=== PATIENT | female | born 1985 | race Caucasian/White ===

== ENCOUNTER 2021-03-24 12:32 | Emergency (ER) | payer MEDICAID, SELFPAY ==
[2021-03-24 12:43] VITALS: BP 120/82; BP 135/79; PULSE 60; PULSE 94; RESP 20; TEMP 37.1; O2SAT 96; BMI 47.4
[2021-03-24 13:49] VITALS: BP 111/66; RESP 16; O2SAT 96
[2021-03-24] MEDS: Famotidine/PF 20 MG/2 ML VIAL IVPUSH (13:51)
--- NOTE | 2021-03-24 13:53 | ED.ALLEREA ---
HPI - Allergic Reaction General Chief complaint: Allergic Reaction <KELLY Shahid Last Filed: 03/24/21 17:59> Stated complaint: allergic reaction <KELLY Shahid Last Filed: 03/24/21 17:59> Time Seen by Provider: 03/24/21 13:42 <KELLY Shahid Last Filed: 03/24/21 17:59> Source: patient <KELLY Shahid Last Filed: 03/24/21 17:59> Mode of arrival: ambulatory <KELLY Shahid Last Filed: 03/24/21 17:59> Limitations: no limitations <KELLY Shahid Last Filed: 03/24/21 17:59> History of Present Illness HPI narrative: Patient presents to ED for allergic reaction. Patient states 2 days of intermittent tongue/lip swelling, burning sensation lips and itchy sensation on lips. Patient states today she had lip swelling and tongue swelling and sensation of throat closing at urgent care was immediately given EpiPen and was given Benadryl and Solu-Medrol in the EMS truck. Patient states lips have improved and tongue has improved. Since patient has swelling of lips and tongue as per EMS and patient has significantly decreased. <KELLY Shahid Last Filed: 03/24/21 17:59> Related Data Home medications: Previous Rx's Medication Instructions Recorded diphenhydramine HCl [Benadryl] 25 mg PO BEDTIME PRN #30 cap 03/24/21 epinephrine [EpiPen] 0.3 mg IM Q15M PRN #2 ea 03/24/21 famotidine [Pepcid] 20 mg PO BID #20 tab 03/24/21 prednisone 40 mg PO DAILY #10 tab 03/24/21 <KELLY Shahid Last Filed: 03/24/21 17:59> Allergies/adverse reactions: Allergies Allergy/AdvReac Type Severity Reaction Status Date / Time haloperidol [From Haldol] Allergy Unknown UNKNOWN Unverified 07/28/20 17:04 sertraline [Zoloft] Allergy Unknown Verified 08/19/18 00:00 From Zoloft Allergy Unknown UNKNOWN Uncoded 07/28/20 17:04 <KELLY Shahid Last Filed: 03/24/21 17:59> Review of Systems Review of Systems: Yes all other systems are reviewed and are negative <KELLY Shahid - Last Filed: 03/24/21 17:59> Constitutional: Constitutional: Reports as per HPI and Reports no additional constitutional complaints <KELLY Shahid - Last Filed: 03/24/21 17:59> Eyes: Eyes: Reports as per HPI and Reports no additional eye complaints <KELLY Shahid - Last Filed: 03/24/21 17:59> ENT: Reports system reviewed and no additional complaints, except as documented and Reports as per HPI <KELLY Shahid - Last Filed: 03/24/21 17:59> Comments: Lips/tongue swelling burn sensation of lips. Patient is of lips <KELLY Shahid - Last Filed: 03/24/21 17:59> Cardiovascular: Cardiovascular: Reports as per HPI and Reports no additional cardiovascular complaints <KELLY Shahid - Last Filed: 03/24/21 17:59> Respiratory: Respiratory: Reports as per HPI and Reports no additional respiratory complaints <KELLY Shahid - Last Filed: 03/24/21 17:59> Gastrointestinal: Gastrointestinal: Reports as per HPI and Reports no additional gastrointestinal complaints <KELLY Shahid - Last Filed: 03/24/21 17:59> Musculoskeletal: Musculoskeletal: Reports no additional musculoskeletal complaints and Reports as per HPI <KELLY Shahid - Last Filed: 03/24/21 17:59> Neurologic: Reports system reviewed and no additional complaints, except as documented and Reports as per HPI <KELLY Shahid - Last Filed: 03/24/21 17:59> Psychiatric: Psychiatric: Reports no additional psychiatric complaints and Reports as per HPI <KELLY Shahid Last Filed: 03/24/21 17:59> [facility] Social History Social History: Social History Alcohol intake: never Smoking Status: Never smoker Use of substances other than those prescribed or required for medical reasons: No Advance Directives: No Advance Directives Information Provided: Yes Patient : No <KELLY Shahid - Last Filed: 03/24/21 17:59> Physical Exam Vital Signs: Vital Signs: Last Vital Signs Temp 98.9 F 03/24/21 17:03 Pulse 94 03/24/21 19:24 Resp 20 05/14/21 19:24 BP 114/59 L 03/24/21 19:24 Pulse Ox 95 03/24/21 19:24 Body Mass Index 47.4 <KELLY Shahid Last Filed: 03/24/21 17:59> Vital Signs: Last Vital Signs Temp 98.9 F 03/24/21 17:03 Pulse 94 03/24/21 19:24 Resp 20 03/24/21 19:24 BP 114/59 L 03/24/21 19:24 Pulse Ox 95 03/24/21 19:24 Body Mass Index 47.4 <Bola Buenrostro MD - Last Filed: 03/24/21 20:57> Const: General: cooperative, healthy appearing, comfortable, no acute distress, well developed, alert, awake and Physically active <KELLY Shahid - Last Filed: 03/24/21 17:59> Orientation/consciousness: patient oriented x3 <KELLY Shahid - Last Filed: 03/24/21 17:59> HENMT: Head: Yes normal to inspection, Yes No palpable skull fracture present, Yes normocephalic, Yes atraumatic and No abrasion <KELLY Shahid Last Filed: 03/24/21 17:59> Eyes: General: appearance normal, both eyes and all related structures <KELLY Shahid Last Filed: 03/24/21 17:59> Neck: Neck: Yes normal visual inspection, Yes full ROM, Yes no lymphadenopathy, Yes no meningeal signs, Yes trachea midline, Yes supple and No tender <KELLY Shahid - Last Filed: 03/24/21 17:59> Chest: Chest palpation & inspection: normal inspection of the chest and normal palpation of entire chest wall <KELLY Shahid Last Filed: 03/24/21 17:59> Resp: Effort & Inspection: normal respiratory effort and able to speak in complete sentences <KELLY Shahid Last Filed: 03/24/21 17:59> Auscultation: clear to auscultation bilaterally <KELLY Shahid Last Filed: 03/24/21 17:59> Cardio: Jugular venous distension: no JVD <KELLY Shahid Last Filed: 03/24/21 17:59> Heart sounds: S1 normal heart sound present and S2 normal heart sound present <KELLY Shahid Last Filed: 03/24/21 17:59> GI: Inspection: Yes normal to inspection and No abdominal wall ecchymosis <KELLY Shahid - Last Filed: 03/24/21 17:59> Palpation (GI): Soft to palpation, not firm, nontender, no guarding and not rigid <KELLY Shahid - Last Filed: 03/24/21 17:59> : General: No CVA tenderness and Yes no CVA tenderness <KELLY Shahid Last Filed: 03/24/21 17:59> Back/Spine/Pelvis: Back: no CVA tenderness, No CVA tenderness and No back tenderness <KELLY Shahid - Last Filed: 03/24/21 17:59> Skin: General skin exam: no rashes or lesions noted and elasticity normal <KELLY Shahid Last Filed: 03/24/21 17:59> Neuro: General: patient oriented x3, no meningeal signs and CN's II-XI intact bilaterally <KELLY Shahid Last Filed: 03/24/21 17:59> Cranial nerves: Yes CN's II-XII intact bilaterally <KELLY Shahid - Last Filed: 03/24/21 17:59> Extrem: General: Yes normal to inspection and Yes full ROM <KELLY Shahid Last Filed: 03/24/21 17:59> Psych: Appearance: grossly normal, well kempt and not disheveled <KELLY Shahid Last Filed: 03/24/21 17:59> Course Course Course Narrative: Patient presently speaking in full sentences and not using accessory muscles. Uvula is midline and togue no longer swollen. patient is speaking in full sentences. patient received benadryl, solumedrol in EMS. patient received first epipen injection in urgent care <KELLY Shahid Last Filed: 03/24/21 17:59> I have discussed the case and management with the SARABJIT <Bola Buenrostro MD - Last Filed: 03/24/21 20:57> Reevaluation(s) Reevaluation #1: patient presently sleeping in bed and not in any distress. Will evaluate in the ED for four hours. <KELLY Shahid - Last Filed: 03/24/21 17:59> no further swelling to lip or tongue will dc home <Bola Buenrostro MD - Last Filed: 03/24/21 20:57> Time: 20:57 <Bola Buenrostro MD - Last Filed: 03/24/21 20:57> Reevaluation #2: Patient informed staff her felt swollen and itching. patient's lower lip appears to be swelling again. uvula is midline and tongue is not swollen. epi pen and benadryl 23mg ordered <KELLY Shahid - Last Filed: 03/24/21 17:59> Time: 14:15 <KELLY Shahid - Last Filed: 03/24/21 17:59> Reevaluation #3: Patient's lip swelling resolving. uvula is midline and tongue is not swollen. Patient is speaking in full sentences. Sign out to Dr. Buenrostro to reevaluation patient and he will cancel discharge if necessary. <KELLY Shahid - Last Filed: 03/24/21 17:59> MDM - Allergic Reaction MDM Narrative Medical decision making narrative: Allergic reaction <KELLY Shahid - Last Filed: 03/24/21 17:59> Discharge Plan Discharge Clinical Impression: Allergic reaction Qualifiers: Encounter type: initial encounter Qualified Code(s): T78.40XA - Allergy, unspecified, initial encounter <KELLY Shahid - Last Filed: 03/24/21 17:59> Patient Disposition: Home, Self-Care <KELLY Shahid - Last Filed: 03/24/21 17:59> Instructions: General Allergic Reaction (ED) <KELLY Shahid - Last Filed: 03/24/21 17:59> Additional Instructions: Return to the ED immeidately of swelling of oral cavity, shorntess of breath, sensation of throat closing, rash, or any other concerning symptoms., <KELLY Shahid - Last Filed: 03/24/21 17:59> Prescriptions: New epinephrine [EpiPen] 0.3 mg/0.3 mL auto-injector 0.3 mg IM Q15M PRN (Reason: allergic reaction) Qty: 2 RF: 0 prednisone 20 mg tablet 40 mg PO DAILY Qty: 10 RF: 0 famotidine [Pepcid] 20 mg tablet 20 mg PO BID Qty: 20 RF: 0 diphenhydramine HCl [Benadryl] 25 mg capsule 25 mg PO BEDTIME PRN (Reason: allergic reaction) Qty: 30 RF: 0 <KELLY Shahid - Last Filed: 03/24/21 17:59> Referrals: [facility] [Primary Care Provider] - 2 days (Allergic reaction) <KELLY Shahid - Last Filed: 03/24/21 17:59> Stand Alone Forms: Work/School Release <KELLY Shahid - Last Filed: 03/24/21 17:59> Print Language: Bolivian <KELLY Shahid - Last Filed: 03/24/21 17:59>
[2021-03-24 14:06] VITALS: BP 111/66; PULSE 60
[2021-03-24] MEDS: EPINEPHrine 1 MG/ML VIAL 0.3 MG IM (14:06)
[2021-03-24] MEDS: diphenhydrAMINE HCL 50 MG/ML VIAL 25 MG IVPUSH (14:07)
--- NOTE | 2021-03-24 14:12 | PC.NURSE ---
PT REPORTED INCREASED PAIN AND SWELLING IN HER LIP. LOWER LIP DID APPEAR TO BE MORE SWOLLEN THEN PRIOR. KELLY MARTINEZ ORDERED EPINEPHRINE AND BENADRYL iv, ADMINISTERED PER ORDERED WILL REASSESS
[2021-03-24 16:43] VITALS: BP 105/54; O2SAT 96
[2021-03-24 17:03] VITALS: BP 111/52; PULSE 102; RESP 20; TEMP 37.2; O2SAT 96
--- NOTE | 2021-03-24 17:03 | PC.NURSE ---
patients lips look improved, no longer having pain, no longer swollen. report breathing feels normal. vitals stable. will speak with PA regarding ispo.
[2021-03-24 19:24] VITALS: BP 114/59; PULSE 94; RESP 20; O2SAT 95
--- NOTE | 2021-03-24 19:24 | PC.NURSE ---
pt states she has no difficutly swallowing, pt is talking in full sentences. lower lip redness noted and pt states she feels that the swelling has gone down.
== END 2021-03-24 21:08 | disposition home or self-care (01) ==
PROVIDERS: Emergency Provider Emergency Medicine
DX: L23.6 Allergic contact dermatitis due to food in contact with the skin (principal); Z79.899 Other long term (current) drug therapy
CPT/HCPCS: 96372; 96374; 96375; 99284; J0171; J1200

== ENCOUNTER 2021-06-14 10:15 | Outpatient (REF) | payer MEDICAID, SELFPAY ==
[2021-06-15 13:35] LABS: H Pylori Breath Test DETECTED (NOT DETECTED)
== END 2021-06-14 10:16 | disposition home or self-care (01) ==
LOC: HO.LNP 10:15
PROVIDERS: PCP Family Medicine; Referring Provider Family Medicine; Visit Provider Physician Assistant
DX: E66.01 Morbid (severe) obesity due to excess calories (principal); Z68.42 Body mass index [BMI] 45.0-49.9, adult; E11.9 Type 2 diabetes mellitus without complications; F20.9 Schizophrenia, unspecified; F41.9 Anxiety disorder, unspecified; R40.0 Somnolence; J45.909 Unspecified asthma, uncomplicated; Z79.4 Long term (current) use of insulin; Z11.0 Encounter for screening for intestinal infectious diseases
CPT/HCPCS: 83013; 99202; 99211

== ENCOUNTER 2021-06-19 11:43 | Outpatient (REF) | payer MEDICAID, SELFPAY ==
--- NOTE | ~2021-06-19 | XR_ITS ---
EXAMINATION: XR CHEST CLINICAL INFORMATION: Bariatric service evaluation. E66.01 COMPARISON: Chest radiographs 05/17/2016, 07/21/2015 TECHNIQUE: 2 views of the chest were obtained. FINDINGS: The lungs are clear. The vascularity is normal. There is no airspace consolidation or effusion. The heart is normal in size. The hilar and mediastinal contours and visualized bony structures are unremarkable. XR/XR chest 2V IMPRESSION: Unremarkable examination.
--- NOTE | 2021-06-19 11:50 | ECG_ITS ---
Test Reason : MORBID OBESITY Blood Pressure : / mmHG Vent. Rate : 092 BPM Atrial Rate : 092 BPM P-R Int : 134 ms QRS Dur : 080 ms QT Int : 368 ms P-R-T Axes : 064 036 030 degrees QTc Int : 455 ms Normal sinus rhythm Normal ECG When compared with ECG of 19-MAY-2017 03:36, No significant change was found Referred By: Barb Mackey Electronically Signed By:NAT HUA MD
[2021-06-19 12:26] LABS: MANUAL DIFF FLAG NO
[2021-06-19 12:31] LABS: Basophils Percent Auto 0.2 % (0-2); Eosinophils Absolute Auto 0.1 X10*3/uL (0.0-0.4); Eosinophils Percent Auto 1.5 % (0-4); Hematocrit 42.3 % (37-47); Hemoglobin 14.5 g/dl (12.0-16.0); Imm Gran Abs Auto 0.03 X10*3/uL (0.00-0.03); Imm Gran Pct Auto 0.3 % (0.0-0.4); Lymphocytes Absolute Auto 2.7 X10*3/uL (1.2-4.9); Lymphocytes Percent Auto 29.9 % (20-40); Mean Corpuscular HGB Conc 34.3 g/dl (31.0-35.0); Mean Corpuscular Hemoglobin 29.6 pg (27.0-33.0); Mean Corpuscular Volume 86.3 fL (80-98); Mean Platelet Volume 10.4 fL (9.4-12.3); Monocytes Absolute Auto 0.4 X10*3/uL (0.1-1.2); Neutrophils Absolute Auto 5.8 X10*3/uL (2.0-8.3); Neutrophils Percent Auto 64.1 % (45-73); Platelet Count 265 X10*3/uL (160-400); White Blood Count 9.1 X10*3/uL (4.8-10.8)
[2021-06-19 12:39] LABS: Estimated Average Glucose 329 mg/dL; Hemoglobin A1c % 13.1 %
[2021-06-19 13:22] LABS: Alanine Aminotransferase 33 U/L (0-31); Albumin Level 3.9 g/dL (3.5-5.0); Alkaline Phosphatase 138 U/L (39-117); Anion Gap 15 (12-20); Aspartate Amino Transferase 31 U/L (5-31); Bilirubin Total 0.2 mg/dL (0.0-1.0); Blood Urea Nitrogen 12 mg/dL (9-16); C Reactive Protein 2.64 mg/dL (< or = 0.50); Carbon Dioxide 25 mmol/L (22-29); Chloride 102 mmol/L (96-108); Cholesterol 209 mg/dL; Estimated Glomerular Filt Rate > 60; Glucose Random 335 mg/dL (60-115); HDL Cholesterol 44 mg/dL; Iron 54 mcg/dL (30-160); LDL Cholesterol Calculated 138 mg/dl; Percent Iron Saturation 18 % (15-50); Sodium 138 mmol/L (135-145); Total Iron Binding Capacity 302 mcg/dL (228-428); Total Protein 6.9 g/dL (6.5-8.0); Triglycerides 136 mg/dL; Unsaturated Iron Binding 248 ug/dL
[2021-06-19 13:44] LABS: Ferritin 164 ng/mL (10-122); TSH reflex Free T4 2.81 uIU/mL (0.32-4.0); Vitamin D 25-OH Total 19.9 ng/mL (>30)
[2021-06-19 14:04] LABS: Folate 11.8 ng/mL (> or = 4.0); Vitamin B12 668 pg/mL (200-900)
[2021-06-20 18:31] LABS: Insulin Level Total 14.8 uIU/mL
[2021-06-21 16:37] LABS: Calcium (PTHI) 9.1 mg/dL (8.6-10.2); PTHI 77 pg/mL (14-64)
[2021-06-21 22:26] LABS: Zinc 66 mcg/dL (60-130)
[2021-06-23 13:01] LABS: Vitamin B1 7 nmol/L (8-30)
[2021-06-25 02:22] LABS: Vitamin A 28 mcg/dL (38-98)
== END 2021-06-19 11:44 | disposition home or self-care (01) ==
LOC: HO.XRAY 11:43
PROVIDERS: PCP Family Medicine; Visit Provider Physician Assistant
DX: E66.01 Morbid (severe) obesity due to excess calories (principal)
CPT/HCPCS: 36415; 71046; 80053; 80061; 82306; 82607; 82728; 82746; 83036; 83525; 83540; 83970; 84425; 84443; 84590; 84630; 85025; 86140; 93005

== ENCOUNTER → 2021-06-27 11:26 | Outpatient (BNVA) | payer MEDICAID, SELFPAY | PROVIDERS: PCP Family Medicine; Visit Provider Surgery ==

== ENCOUNTER → 2021-07-04 11:16 | Outpatient (BNVA) | payer MEDICAID, SELFPAY | PROVIDERS: PCP Family Medicine; Referring Provider Family Medicine; Visit Provider Physician Assistant ==

== ENCOUNTER → 2021-07-05 15:57 | Outpatient (BNVA) | payer MEDICAID, SELFPAY | PROVIDERS: PCP Family Medicine; Referring Provider Family Medicine; Visit Provider Dietitian, Registered | DX: E66.01 Morbid (severe) obesity due to excess calories (principal); Z68.42 Body mass index [BMI] 45.0-49.9, adult | CPT/HCPCS: 97803 ==

== ENCOUNTER 2021-07-13 08:49 | Outpatient (REF) | payer MEDICAID, SELFPAY ==
--- NOTE | ~2021-07-13 | US_ITS ---
EXAMINATION: US COMPLETE ABDOMEN WITH LIVER ELASTOGRAPHY CLINICAL INFORMATION: Obesity COMPARISON: Previous CT of the abdomen and pelvis most recent November 2019 and abdominal ultrasound May 2009 TECHNIQUE: Real-time imaging of the abdominal viscera. Noninvasive ultrasound liver fibrosis assessment is performed using Lizzeth ElastPQ point quantification shear wave elastography (pSWE) with a C5-2 MHz transducer. Multiple elastography samples are obtained. FINDINGS: PANCREAS: Not well visualized due to bowel gas. ABDOMINAL AORTA: Not well visualized due to bowel gas INFERIOR VENA CAVA: Not well visualized bowel gas LIVER: Liver echotexture is increased. The liver demonstrates normal size and contour. No focal lesion or intrahepatic biliary duct dilatation. The right lobe measures 15 cm in length. The left lobe measures 14 cm in length. Portal flow is normal/hepatopedal Shear wave liver elastography median stiffness is 1.5 m/s (reference: normal median stiffness is 1.3 m/s or less). IQR/median stiffness to assess sampling precision is 0.13 (reference: good quality data set is IQR/median stiffness of 0.15 or less). GALLBLADDER: Normal. The gallbladder is physiologically distended without evidence of stones, sludge, polyps, wall thickening or pericholecystic fluid. COMMON BILE DUCT: Normal in caliber measuring 0.5 cm in diameter. RIGHT KIDNEY: Normal. No hydronephrosis. No renal calculi or focal parenchymal lesions. The kidney measures 10.7 cm in maximum dimension. LEFT KIDNEY: Normal. No hydronephrosis. No renal calculi or focal parenchymal lesions. The kidney measures 10.9 cm in maximum dimension. SPLEEN: Normal. The spleen measures 12.4 cm in maximum dimension. FREE FLUID: None. US/US abdomen comp w elastography IMPRESSION: 1. Impression: Echogenic liver probably representing fatty infiltration. Nonvisualization of the pancreas, aorta and IVC. 2. Liver elastography: Adequate liver sampling. In the absence of other known clinical signs, rules out compensated advanced chronic liver disease. REFERENCE: Society of Radiologists in Ultrasound Liver Stiffness Thresholds (2019): LIVER STIFFNESS THRESHOLDS: *Liver Stiffness equal or less than 1.3 m/s: High probability of being normal. *Liver Stiffness less than 1.7 m/s: In the absence of other known clinical signs, rules out compensated advanced chronic liver disease. *Liver Stiffness 1.7-2.1 m/s: Suggestive of compensated advanced chronic liver disease but need further test for confirmation. *Liver Stiffness over 2.1 m/s: Rules in compensated advanced chronic liver disease. *Liver Stiffness over 2.4 m/s: Suggestive of clinically significant portal hypertension. QUALITY OF DATA SET: *IQR/Median value equal or less than 0.15 implies a quality data set. *IQR/Median value over 0.15 implies a poor quality data set. SIGNIFICANT CHANGE FROM PRIOR EXAM: Significant change if liver stiffness measurement is 10% or greater from prior exam. OTHER CONSIDERATIONS: The stage of liver fibrosis may be overestimated in the setting of acute hepatitis, liver inflammation, elevated liver function tests, hepatic vascular congestion, obstructive cholestasis, non-fasting state, and infiltrative diseases such as amyloidosis and lymphoma. In some patients with NAFLD, the liver stiffness thresholds for compensated advanced chronic liver disease may be lower. In causes other than viral hepatitis and NAFLD, liver stiffness thresholds are not well established.
--- NOTE | ~2021-07-13 | FL_ITS ---
EXAMINATION: XR GI SERIES CLINICAL INFORMATION: Morbid obesity. COMPARISON: None TECHNIQUE: Air-contrast upper GI examination. FINDINGS: There is normal apposition of the focal cords while saying E. There is normal elevation of the soft palate while saying candy. Patient swallowed thin and thick barium without difficulty. There is no evidence of nasopharyngeal reflux or tracheal aspiration. There is normal esophageal motility and distensibility without mucosal abnormality identified. There was spontaneous gastroesophageal reflux to the level of the cooper which cleared slowly. The stomach demonstrates normal distensibility without evidence of abnormal mass or ulceration. There is no delay in gastric emptying. The duodenal bulb and sweep appeared unremarkable. FLUOROSCOPY TIME: 1.5 minutes. DOSE AREA PRODUCT: 21.930 Gy-cm2 (ayon-centimeter squared). FL/FL upper GI series IMPRESSION: Spontaneous reflux to the level of the cooper which cleared slowly. No mucosal abnormality appreciated.
== END 2021-07-13 08:50 | disposition home or self-care (01) ==
LOC: HO.SL 08:49
PROVIDERS: PCP Family Medicine; Visit Provider Surgery
DX: Z01.818 Encounter for other preprocedural examination (principal); E66.01 Morbid (severe) obesity due to excess calories; K21.9 Gastro-esophageal reflux disease without esophagitis; F20.9 Schizophrenia, unspecified; G47.10 Hypersomnia, unspecified; G47.19 Other hypersomnia
CPT/HCPCS: 74240; 76705; 76981; 95806

== ENCOUNTER → 2021-07-21 07:07 | Outpatient (BNVA) | payer MEDICAID, SELFPAY | PROVIDERS: PCP Family Medicine; Visit Provider Surgery ==

== ENCOUNTER 2021-07-24 11:06 | Outpatient (REF) | payer MEDICAID, SELFPAY ==
[2021-07-26 13:08] LABS: H Pylori Breath Test Positive (Negative)
== END 2021-07-24 11:07 | disposition home or self-care (01) ==
LOC: HO.LNP 11:06
PROVIDERS: Physician Assistant Surgical; PCP Family Medicine; Referring Provider Family Medicine; Visit Provider Physician Assistant
DX: Z01.818 Encounter for other preprocedural examination (principal)
CPT/HCPCS: 83013; 99211

== ENCOUNTER → 2021-08-02 12:57 | Outpatient (BNVA) | payer MEDICAID, SELFPAY | PROVIDERS: PCP Family Medicine; Referring Provider Family Medicine; Visit Provider Dietitian, Registered | DX: E66.01 Morbid (severe) obesity due to excess calories (principal); Z68.42 Body mass index [BMI] 45.0-49.9, adult | CPT/HCPCS: 97803 ==

== ENCOUNTER → 2021-08-16 08:11 | Outpatient (BNVA) | payer MEDICAID, SELFPAY | PROVIDERS: PCP Family Medicine; Visit Provider Surgery ==

== ENCOUNTER → 2021-09-25 07:54 | Outpatient (BNVA) | payer MEDICAID, SELFPAY | PROVIDERS: PCP Family Medicine; Visit Provider Surgery ==

== ENCOUNTER → 2021-10-26 12:51 | Outpatient (BNVA) | payer MEDICAID, SELFPAY | PROVIDERS: PCP Family Medicine; Visit Provider Internal Medicine Pulmonary Disease | DX: G47.33 Obstructive sleep apnea (adult) (pediatric) (principal); Z99.89 Dependence on other enabling machines and devices; E66.9 Obesity, unspecified; Z68.42 Body mass index [BMI] 45.0-49.9, adult | CPT/HCPCS: 99202 ==

== ENCOUNTER → 2022-03-16 11:32 | Outpatient (BNVA) | payer MEDICAID, SELFPAY | PROVIDERS: PCP Family Medicine; Referring Provider Family Medicine; Visit Provider Surgery | DX: Z13.89 Encounter for screening for other disorder (principal) ==

== ENCOUNTER → 2022-03-23 13:04 | Outpatient (BNVA) | payer MEDICAID, SELFPAY | PROVIDERS: PCP Family Medicine; Referring Provider Family Medicine; Visit Provider Physician Assistant Surgical | DX: Z13.89 Encounter for screening for other disorder (principal) ==

== ENCOUNTER → 2022-04-04 12:33 | Outpatient (BNVA) | payer MEDICAID, SELFPAY | PROVIDERS: PCP Family Medicine; Visit Provider Physician Assistant Surgical | DX: E66.01 Morbid (severe) obesity due to excess calories (principal); Z68.42 Body mass index [BMI] 45.0-49.9, adult | CPT/HCPCS: 99212 ==

== ENCOUNTER 2022-04-10 09:41 | Outpatient (REF) | payer MEDICAID, SELFPAY ==
[2022-04-11 14:11] LABS: H Pylori Breath Test Positive (Negative)
== END 2022-04-10 09:42 | disposition home or self-care (01) ==
LOC: HO.LNP 09:41
PROVIDERS: PCP Family Medicine; Referring Provider Family Medicine; Visit Provider Physician Assistant Surgical
DX: Z01.818 Encounter for other preprocedural examination (principal); E66.01 Morbid (severe) obesity due to excess calories
CPT/HCPCS: 83013; 99211

== ENCOUNTER → 2022-04-18 13:26 | Outpatient (BNVA) | payer OTHER, SELFPAY | PROVIDERS: PCP Family Medicine; Visit Provider Counselor Mental Health | DX: F31.60 Bipolar disorder, current episode mixed, unspecified (principal); E66.01 Morbid (severe) obesity due to excess calories | CPT/HCPCS: 90791 ==

== ENCOUNTER → 2022-04-24 10:30 | Outpatient (BNVA) | payer MEDICAID, SELFPAY | PROVIDERS: PCP Family Medicine; Visit Provider Dietitian, Registered | DX: E66.01 Morbid (severe) obesity due to excess calories (principal) | CPT/HCPCS: 97802 ==

== ENCOUNTER → 2022-05-09 13:00 | Outpatient (BNVA) | payer OTHER, SELFPAY | PROVIDERS: PCP Family Medicine; Visit Provider Counselor Mental Health | DX: F31.60 Bipolar disorder, current episode mixed, unspecified (principal); E66.01 Morbid (severe) obesity due to excess calories | CPT/HCPCS: 90832 ==

== ENCOUNTER 2023-08-01 12:03 | Outpatient (REF) | payer MEDICAID, SELFPAY ==
--- NOTE | ~2023-08-01 | XR_ITS ---
EXAMINATION: XR FOOT, RIGHT CLINICAL INFORMATION: Right foot pain. COMPARISON: None available. TECHNIQUE: AP, lateral, and oblique views of the right foot. FINDINGS: No acute fracture or dislocation. No joint space narrowing or marginal osteophytes. No osseous erosion. Plantar and dorsal calcaneal spurs. XR/XR foot RT min 3V IMPRESSION: Plantar and dorsal calcaneal spurs.
[2023-08-01 13:36] LABS: Estimated Average Glucose 303 mg/dL; Hemoglobin A1c % 12.2 % (<6.0)
[2023-08-01 13:37] LABS: Cholesterol 226 mg/dL (<200); HDL Cholesterol 46 mg/dL (>40); LDL Cholesterol Calculated 149 mg/dL (<100); Triglycerides 158 mg/dL (<150)
[2023-08-01 14:10] LABS: Folate 12.3 ng/mL (> or = 4.0); Vitamin B12 861 pg/mL (200-900)
[2023-08-01 14:26] LABS: Alanine Aminotransferase 29 U/L (0-31); Albumin Level 3.7 g/dL (3.5-5.0); Alkaline Phosphatase 124 U/L (39-117); Anion Gap 14 (12-20); Aspartate Amino Transferase 20 U/L (5-31); Bilirubin Total 0.2 mg/dL (0.0-1.0); Blood Urea Nitrogen 13 mg/dL (9-16); Calcium 9.3 mg/dL (8.4-10.2); Carbon Dioxide 23 mmol/L (22-29); Chloride 107 mmol/L (96-108); Estimated Glomerular Filt Rate > 60; Glucose Random 238 mg/dL (60-115); Potassium 3.8 mmol/L (3.3-5.1); Sodium 140 mmol/L (135-145); Total Protein 7.6 g/dL (6.5-8.0)
[2023-08-01 14:40] LABS: TSH reflex Free T4 1.47 uIU/mL (0.32-4.0)
[2023-08-01 15:49] LABS: Reflex LDLD? No
[2023-08-02 08:09] LABS: Syphilis Screen Nonreactive (Nonreactive)
[2023-08-02 08:36] LABS: HBsAGNum1 0.34 S/CO (0.00-0.99); HIV AB/AG Nonreactive (Nonreactive); HIV Num 1 0.05 S/CO (0.00-0.99); Hepatitis B Surface Antigen Negative (Negative); ~HepC Num1 0.18 S/CO (0.00-0.79); ~Hepatitis C Antibody Nonreactive (Nonreactive)
[2023-08-03 14:44] LABS: C. trachomatis RNA TMA NOT DETECTED (NOT DETECTED); N. gonorrhoeae RNA TMA NOT DETECTED (NOT DETECTED)
== END 2023-08-01 12:04 | disposition home or self-care (01) ==
LOC: HO.HHCL 12:03
PROVIDERS: Visit Provider Family Medicine
DX: N89.8 Other specified noninflammatory disorders of vagina (principal); E11.65 Type 2 diabetes mellitus with hyperglycemia; Z79.4 Long term (current) use of insulin
CPT/HCPCS: 36415; 73630; 80053; 80061; 82607; 82746; 83036; 84443; 86780; 86803; 87340; 87389; 87491; 87591

== ENCOUNTER 2023-08-10 11:18 | Emergency (ER) | payer MEDICAID, SELFPAY ==
--- NOTE | ~2023-08-10 | CT_ITS ---
EXAMINATION: CT ABDOMEN AND PELVIS WITH CONTRAST CLINICAL INFORMATION: Left lower quadrant pain COMPARISON: Previous CT of the abdomen and pelvis November 2019 and abdominal ultrasound July 2021 TECHNIQUE: Multidetector volumetric images were obtained from the superior aspect of the liver through the pubic symphysis following administration 85 mL of Omnipaque 350 intravenous contrast. Sagittal and coronal reformatted images were obtained on the technologist's workstation. Oral contrast: Yes This CT examination was performed using dose optimization techniques as appropriate, variously including the following: *Automated exposure control *Adjustment of mA and/or kV according to patient size (this includes techniques or standardized protocols for targeted exams where dose is matched to indication/reason for exam; i.e. extremities or head) *Use of iterative reconstruction technique DLP: 974 mGy-cm FINDINGS: LUNG BASES: The visualized lung bases are unremarkable. LIVER, GALLBLADDER, AND BILIARY TREE: Widely enlarged fatty liver. No focal hepatic lesion or biliary ductal dilatation is present. The gallbladder is unremarkable with no evidence of radiopaque gallstones, gallbladder wall thickening, or obvious pericholecystic inflammatory changes. PANCREAS: Unremarkable. SPLEEN: Unremarkable. ADRENAL GLANDS: Unremarkable. KIDNEYS AND URETERS: The kidneys are normal in size, shape, and attenuation. No hydronephrosis, hydroureter, or calculi seen. No perinephric stranding. BLADDER: Unremarkable. GASTROINTESTINAL TRACT: The small and large bowel are unremarkable. The appendix is unremarkable. ABDOMINAL WALL: No significant hernia is appreciated. LYMPH NODES: Normal. VASCULAR: Unremarkable. PELVIC VISCERA: Unremarkable. OSSEOUS STRUCTURES: Unremarkable. CT/CT abdomen pelvis w IV con IMPRESSION: Enlarged fatty liver. Otherwise unremarkable exam. Fleischner guidelines were followed.
[2023-08-10 11:20] VITALS: BP 136/88; PULSE 103; RESP 18; TEMP 35.8; O2SAT 98; BMI 47.5
--- NOTE | 2023-08-10 11:21 | ED.GENADULT ---
HPI - General Adult General Chief complaint: Abdominal Pain Stated complaint: vomiting abd pain Time Seen by Provider: 08/10/23 11:36 Source: patient Mode of arrival: ambulatory Limitations: no limitations History of Present Illness HPI narrative: 37 year old female with pmhx significant for bipolar 1 disorder, schizophrenia, anxiety, depression, asthma, morbid obesity, YING on CPAP, GERD, T2DM non med compliant, presenting to the ED today with RLQ abdominal pain x1 week, worsening over the last 3 days. Admits to pain in the right lower quadrant with radiation to the left upper quadrant. Additionally endorses nausea and vomiting beginning at 0300 this morning. Denies hematemesis. Reports a depressive episode over the last week after having an argument with her mother and has not been taking any of her diabetic medications. Denies feeling depressed right now. Has appointment with her therapist. Denies SI/HI. No oDenies fever, chills, headache, dizziness, sweats. Denies history of peptic ulcers disease. No history of abdominal surgeries. Related Data Home Medications Medication Instructions Recorded Confirmed insulin aspart U-100 100 unit/mL 20 unit subcut BID 05/10/21 04/04/22 (3 mL) subcutaneous pen (Novolog FlexPen U-100 Insulin aspart) insulin glargine 100 unit/mL 50 unit subcut QPM 05/10/21 04/04/22 subcutaneous cartridge albuterol sulfate 90 mcg/actuation 2 puff inhalation Q6H PRN 06/14/21 04/04/22 aerosol inhaler bupropion HCl 150 mg 24 hr tablet, 150 mg PO QAM 06/14/21 04/04/22 extended release (Wellbutrin XL) glipizide 2.5 mg-metformin 250 mg 1 tab PO DAILY 06/14/21 04/04/22 tablet metformin 1,000 mg tablet 1,000 mg PO DAILY 06/14/21 04/04/22 quetiapine 200 mg tablet (Seroquel) 200 mg PO BEDTIME 06/14/21 04/04/22 quetiapine 50 mg tablet (Seroquel) 50 mg PO DAILY 06/14/21 04/04/22 Previous Rx's Medication Instructions Recorded epinephrine 0.3 mg/0.3 mL 0.3 mg (0.3 mL) IM Q15M PRN 03/24/21 injection, auto-injector (EpiPen) allergic reaction #2 ea cholecalciferol (vitamin D3) 25 25 mcg PO DAILY #30 caps 07/07/21 mcg (1,000 unit) capsule bismuth subsalicylate 262 mg 2 tab PO QID 14 days #112 tabs 04/13/22 chewable tablet metronidazole 500 mg tablet 500 mg PO TID 14 days #42 tabs 04/13/22 omeprazole 20 mg capsule,delayed 20 mg PO BID 14 days #28 caps 04/13/22 release tetracycline 500 mg capsule 500 mg PO QID 14 days #56 caps 04/13/22 ondansetron 4 mg disintegrating 4 mg PO DAILY PRN nausea and 08/10/23 tablet vomiting 5 days #10 tabs Allergies Allergy/AdvReac Type Severity Reaction Status Date / Time haloperidol [From Haldol] Allergy Unknown UNKNOWN Verified 10/26/21 13:07 sertraline [Zoloft] Allergy Unknown UNKNOWN Verified 10/26/21 13:07 From Zoloft Allergy Unknown UNKNOWN Uncoded 07/21/21 08:03 Review of Systems Review of Systems: Constitutional: No fever, chills, fatigue, night sweats, weight changes ENT/Mouth: No ear pain, hearing loss, nasal congestion, sinus pain, rhinorrhea, sore throat Eyes: No eye pain, swelling, redness, vision changes, discharge Cardio: No chest pain, palpitations, COLINDRES, orthopnea, peripheral edema Pulm: No SOB, cough, sputum, wheezing, dyspnea, hemoptysis GI: + nausea, + vomiting, No hematemesis, + abdominal pain, No diarrhea, constipation, hematochezia, melena : No irregular bleeding, dysuria, frequency, urgency, hesitancy, hematuria, flank pain, urinary flow changes MSK: No back pain, neck pain, joint pain, myalgias Skin: No lesions, rashes Neuro: No weakness, numbness, paresthesias, LOC, dizziness, headache All other systems reviewed and are negative. [facility] Past Medical History Attestation statement: The following information was validated with the patient. Source: old records reviewed and nursing notes reviewed Medical History (Updated 08/10/23 @ 14:28 by KELLY Ward) Bipolar 1 disorder Depression GERD (gastroesophageal reflux disease) Sleep apnea History of anxiety History of asthma Hx of type 2 diabetes mellitus Hx of major depression Surgical History (Updated 06/14/21 @ 10:33 by Guerita Norris CMA) No history of previous surgery Family History Family History (Updated 05/10/21 @ 11:00 by Kavitha Ibarra) Mother Asthma No kidney function Father Diabetes Brother Tumor Brother Asthma Brother No problems noted. Sister No problems noted. Social History Social History (Updated 05/10/21 @ 11:00 by Kavitha Ibarra) Alcohol intake: never Patient Tobacco Use Status: Never used Tobacco Advance Directives: No Physical Exam ED Vital Signs: Vital Signs - 24 hr 08/10/23 11:20 08/10/23 13:19 08/10/23 15:37 Temperature 96.4 F L 97.8 F 97.5 F Pulse Rate 103 H 91 92 Respiratory Rate 18 18 18 Blood Pressure 136/88 129/80 126/85 Pulse Oximetry 98 98 99 Oxygen Delivery Method Room Air BMI result Body Mass Index 47.5 Vital signs stable. Const General: cooperative, comfortable, no acute distress, alert and awake Nutritional Appearance: obese Orientation/consciousness: patient oriented x3 Limitations: no limitations HENMT Head: Yes normal to inspection Ears: hearing grossly normal bilaterally General nose exam: Normal external nose present Eyes General: appearance normal, both eyes and all related structures Neck Neck: Yes normal visual inspection and Yes no lymphadenopathy Chest Chest palpation & inspection: normal inspection of the chest Resp Effort & Inspection: normal respiratory effort Auscultation: clear to auscultation bilaterally Cardio Rate: regular rate Rhythm: regular rhythm Heart sounds: S1 normal heart sound present and S2 normal heart sound present Peripheral pulses: Peripheral pulses 2+ throughout GI Other: + RLQ and RUQ tender to palpation without rebound tenderness or guarding. Negative thomas sign. Negative rovsing sign and mcburney point tenderness. Inspection: Yes normal to inspection, No abdominal wall ecchymosis, No distended, Yes Abdominal panniculus present, Yes obesity and No visible peristalsis Palpation (GI): Soft to palpation, No hepatosplenomegaly present, no hernias and no masses General: Yes no CVA tenderness Back/Spine/Pelvis Back: no CVA tenderness Skin General skin exam: no rashes or lesions noted Neuro General: patient oriented x3, gait normal and moves all extremities Cranial nerves: Yes CN's II-XII intact bilaterally Extrem General: Yes normal to inspection and Yes full ROM Course Course Course Narrative: RME- 37 year old female presents for evaluation of abdominal pain and vomiting. Symptoms started at 3am this morning. Plan for labs, UA Reevaluation(s) Reevaluation #1: 1230-- patient reports improvement in nausea after receiving zofran. Awaiting labs. 1250-- CBC without leukocytosis or anemia. Chemistry without acute electrolyte abnormality requiring intervention. Mildly elevated liver enzymes, chronic when compared to previous labs. Lipase WNL. Urine negative for nitrates and leukocyte esterase, trace bacteria and large amount of squamous epithelial cells > likely contamination. No urinary tract infection. Urine negative. POC 197. > patient with normal renal function > will order CT abdomen pelvis with contrast 1320-- patient with initial tympanic temperature of 96.4?F > repeat temp is 97.8?. No concern for infectious process. 1400-- CT abd/pelvis showing enlarged fatty liver, which correlates with increase in LFTs. Otherwise WNL. Will PO trial. 1430-- Patient informed of lab and imaging results. I told patient she will need to follow up with her PCP regarding enlarged fatty liver findings and elevated liver enzymes. Patient's symptoms are most consistent with gastroenteritis. PO trial successful- able to eat/ drink without issue. Will send patient home with zofran prescription for nausea. Educated on return precautions. Answered all questions. Patient stable for discharge. Medications Administered Discontinued Medications Generic Name Dose Route Start Last Admin Trade Name Freq PRN Reason Stop Dose Admin Sodium Chloride 1,000 mls @ 999 mls/hr 08/10/23 12:30 08/10/23 13:48 Ns IV 08/10/23 13:30 Infused .Q1H1M SASHA Infusion Iohexol 100 ml 08/10/23 13:48 08/10/23 13:49 Iohexol 350 Mg/Ml 100 Ml Infus..Btl IV 08/10/23 13:49 85 ml ONCE ONE Administration Ondansetron HCl 4 mg 08/10/23 11:48 08/10/23 12:06 Ondansetron Hcl 4 Mg/2 Ml Vial IVPUSH 08/10/23 11:49 4 mg ONCE ONE Administration Medical Decision Making Medical Decision Making [facility] Narrative: 37 year old female with pmhx significant for bipolar 1 disorder, schizophrenia, anxiety, depression, asthma, sleep apnea, morbid obesity, YING on CPAP, GERD, type 2 diabetic med non compliant, presenting to the ED today with RLQ abdominal pain x1 week, worsening over the last 3 days. VSS. Patient afebrile and normotensive. Nontoxic appearing, in NAD. PE notable for RLQ and RUQ tender to palpation without rebound tenderness or guarding. Negative thomas sign. Negative rovsing sign and mcburney point tenderness. Clinical concern for viral syndrome vs gastroenteritis vs PUD vs IUP vs ectopic vs appendicitis vs cholecystitis. Low suspicion for DKA vs gastroparesis vs pancreatitis. Unlikely UTI, nephrolithiasis, pyelonephritis. Unlikely ischemic bowel, SBO, diverticulosis/itis, or acute abdomen. Differential Diagnosis Differential Diagnoses: The differential diagnosis associated with the presentation includes As above. Admission/Observation Consideration of admission/observation: Escalation of care including admission/observation considered Lab Data MDM Lab Attestation statement: I reviewed the patient's lab results. As above. 08/10/23 12:02 08/10/23 12:02 Labs: Lab Results 08/10/23 08/10/23 08/10/23 Range/Units 12:02 12:10 12:43 WBC 9.7 (4.8-10.8) X10*3/uL RBC 5.00 (4.20-5.50) X10*6/uL Hgb 15.0 (12.0-16.0) g/dl Hct 43.9 (37.0-47.0) % MCV 87.8 (80.0-98.0) fL MCH 30.0 (27.0-33.0) pg MCHC 34.2 (31.0-35.0) g/dl RDW 13.2 (11.0-16.0) % Plt Count 278 (160-400) X10*3/uL MPV 10.5 (9.4-12.3) fL Immature Gran % (Auto) 0.3 (0.0-0.4) % Neut % (Auto) 60.4 (45-73) % Lymph % (Auto) 32.7 (20-40) % Wake % (Auto) 3.6 (2-11) % Eos % (Auto) 2.6 (0-4) % Baso % (Auto) 0.4 (0-2) % Lymph # (Auto) 3.2 (1.2-4.9) X10*3/uL Wake # (Auto) 0.4 (0.1-1.2) X10*3/uL Eos # (Auto) 0.3 (0.0-0.4) X10*3/uL Baso # (Auto) 0.0 (0.0-0.2) X10*3/uL Abs Immat Gran (auto) 0.03 (0.00-0.03) X10*3/uL Absolute Neuts (auto) 5.8 (2.0-8.3) x10*3/uL Absolute Nucleated RBC 0.000 (0.0-0.012) X10*3/uL Nucleated RBC % (auto) 0.0 (0.0-0.2) /100WBC Sodium 137 (135-145) mmol/L Potassium 4.6 D (3.3-5.1) mmol/L Chloride 104 (96-108) mmol/L Carbon Dioxide 22 (22-29) mmol/L Anion Gap 16 (12-20) BUN 13 (9-16) mg/dL Creatinine 0.66 (0.5-1.4) mg/dL Estim Creat Clear Calc 136.9 Estimated GFR > 60 POC Glucose (60-115) mg/dL Random Glucose 245 H (60-115) mg/dL Calcium 9.3 (8.4-10.2) mg/dL Total Bilirubin 0.4 (0.0-1.0) mg/dL AST 47 H (5-31) U/L ALT 44 H (0-31) U/L Alkaline Phosphatase 127 H (39-117) U/L Total Protein 8.1 H (6.5-8.0) g/dL Albumin 3.7 (3.5-5.0) g/dL Lipase 12 (8-78) U/L Urine Color Yellow Urine Appearance Hazy Urine pH 7.5 (5.0-9.0) Ur Specific [place] 1.015 (1.005-1.025) Urine Protein 30 (1+) H (Neg-Trace) mg/dL Urine Glucose (UA) 100 H (Negative) mg/dL Urine Ketones Negative (Negative) mg/dL Urine Blood Trace (Negative) Urine Nitrite Negative (Negative) Ur Leukocyte Esterase Negative (Negative) Urine RBC 0-2 (0-2) /HPF Urine WBC 0-5 (0-5) /HPF Ur Squamous Epith Cells 11-20 (0-2) /HPF Urine Bacteria Trace (None Seen) Hyaline Casts 0-2 (0-2) /LPF Urine Test NEGATIVE (NEGATIVE) COVID-19 (CRISTINA) Negative (Negative) COVID-19 Clin Com See Note Influenza Type A (ANNEMARIE) (Negative) Influenza Type B (ANNEMARIE) (Negative) Influenza A & B Note 08/10/23 08/10/23 Range/Units 12:44 13:56 WBC (4.8-10.8) X10*3/uL RBC (4.20-5.50) X10*6/uL Hgb (12.0-16.0) g/dl Hct (37.0-47.0) % MCV (80.0-98.0) fL MCH (27.0-33.0) pg MCHC (31.0-35.0) g/dl RDW (11.0-16.0) % Plt Count (160-400) X10*3/uL MPV (9.4-12.3) fL Immature Gran % (Auto) (0.0-0.4) % Neut % (Auto) (45-73) % Lymph % (Auto) (20-40) % Wake % (Auto) (2-11) % Eos % (Auto) (0-4) % Baso % (Auto) (0-2) % Lymph # (Auto) (1.2-4.9) X10*3/uL Wake # (Auto) (0.1-1.2) X10*3/uL Eos # (Auto) (0.0-0.4) X10*3/uL Baso # (Auto) (0.0-0.2) X10*3/uL Abs Immat Gran (auto) (0.00-0.03) X10*3/uL Absolute Neuts (auto) (2.0-8.3) x10*3/uL Absolute Nucleated RBC (0.0-0.012) X10*3/uL Nucleated RBC % (auto) (0.0-0.2) /100WBC Sodium (135-145) mmol/L Potassium (3.3-5.1) mmol/L Chloride (96-108) mmol/L Carbon Dioxide (22-29) mmol/L Anion Gap (12-20) BUN (9-16) mg/dL Creatinine (0.5-1.4) mg/dL Estim Creat Clear Calc Estimated GFR POC Glucose 197 H (60-115) mg/dL Random Glucose (60-115) mg/dL Calcium (8.4-10.2) mg/dL Total Bilirubin (0.0-1.0) mg/dL AST (5-31) U/L ALT (0-31) U/L Alkaline Phosphatase (39-117) U/L Total Protein (6.5-8.0) g/dL Albumin (3.5-5.0) g/dL Lipase (8-78) U/L Urine Color Urine Appearance Urine pH (5.0-9.0) Ur Specific [place] (1.005-1.025) Urine Protein (Neg-Trace) mg/dL Urine Glucose (UA) (Negative) mg/dL Urine Ketones (Negative) mg/dL Urine Blood (Negative) Urine Nitrite (Negative) Ur Leukocyte Esterase (Negative) Urine RBC (0-2) /HPF Urine WBC (0-5) /HPF Ur Squamous Epith Cells (0-2) /HPF Urine Bacteria (None Seen) Hyaline Casts (0-2) /LPF Urine Test (NEGATIVE) COVID-19 (CRISTINA) (Negative) COVID-19 Clin Com Influenza Type A (ANNEMARIE) Negative (Negative) Influenza Type B (ANNEMARIE) Negative (Negative) Influenza A & B Note See Note Independent Interpretation I performed an independent interpretation of an: CT Scan Interpretation: CT abd/pelvis with enlarged liver, agree with radiologist's results. Radiology Impression Discussion of test interpretation with radiology: I have reviewed the radiologist's reading. Radiologist Impression: CT abdomen pelvis w IV con IMPRESSION: Enlarged fatty liver. Otherwise unremarkable exam. External Record Review External record reviewed: Inpatient record Prescription Management I considered prescription management with: Other (Antiemetic) Chronic Conditions Patient?s care impacted by: Diabetes Social Determinants Patient?s care significantly limited by Social Determinants of Health including: Other Social Determinant of Health Critical Care Time Critical Care Time Critical Care Time: No Discharge Plan Discharge Clinical Impression: Gastroenteritis, Fatty liver disease, nonalcoholic Patient Disposition: Home, Self-Care Instructions: Liver Disease Diet (DC), Gastroenteritis (ED), Non-Alcoholic Fatty Liver Disease (ED) Additional Instructions: Your lab workup today was reassuring.? Your urine test was negative for infection and .? You tested negative for both COVID and influenza. The CT of your abdomen and pelvis did not show acute appendicitis or cholecystitis, however it showed an enlarged fatty liver which coincides with your elevated liver enzymes. The treatment for this is to stop drinking alcohol and adopt a liver friendly diet. Resources regarding this have been provided to you. Please follow-up with your primary care provider so that they can continue to follow this. Your symptoms are most consistent with a viral stomach bug, also known as gastroenteritis.? The treatment for this is supportive care. Symptoms usually resolve on their own in 48-72 hours.? The recommendation is rest and lots of oral hydration.? Stick to a bland diet like soup and toast while you are not feeling well.? Zofran is an anti-nausea medication. This has been sent to your pharmacy for you to take as needed for nausea.? You can also try over the counter Pepto Bismol or Imodium as needed for upset stomach and diarrhea.? Additionally continue taking all of your home medications as prescribed and do not miss any doses. If you develop new or worsening symptoms call 911 or come back to the ER for further evaluation. Prescriptions: New ondansetron 4 mg tablet,disintegrating 4 mg PO DAILY PRN (Reason: nausea and vomiting) 5 Days Qty: 10 0RF No Action cholecalciferol (vitamin D3) 25 mcg (1,000 unit) capsule 25 mcg PO DAILY Qty: 30 6RF bismuth subsalicylate 262 mg tablet,chewable 2 tab PO QID 14 Days Qty: 112 0RF omeprazole 20 mg capsule,delayed release(DR/EC) 20 mg PO BID 14 Days Qty: 28 0RF tetracycline 500 mg capsule 500 mg PO QID 14 Days Qty: 56 0RF Rx Instructions: take 1 hour after Bismuth metronidazole 500 mg tablet 500 mg PO TID 14 Days Qty: 42 0RF epinephrine [EpiPen] 0.3 mg/0.3 mL auto-injector 0.3 mg IM Q15M PRN (Reason: allergic reaction) Qty: 2 0RF Rx Instructions: not to exceed 6 doses per episode insulin glargine 100 unit/mL cartridge 50 unit subcut QPM insulin aspart U-100 [Novolog FlexPen U-100 Insulin] 100 unit/mL (3 mL) insulin pen 20 unit subcut BID bupropion HCl [Wellbutrin XL] 150 mg tablet extended release 24 hr 150 mg PO QAM quetiapine [Seroquel] 200 mg tablet 200 mg PO BEDTIME quetiapine [Seroquel] 50 mg tablet 50 mg PO DAILY metformin 1,000 mg tablet 1,000 mg PO DAILY albuterol sulfate 90 mcg/actuation HFA aerosol inhaler 2 puff inhalation Q6H PRN glipizide-metformin 2.5-250 mg tablet 1 tab PO DAILY Referrals: Lu Oreilly MD [Primary Care Provider] - Stand Alone Forms: Work/School Release Interventions: ED Discharge Assessment Last Done: 08/10/23 16:00 Discharge Date/Time: 08/10/23 16:00
[2023-08-10 12:06] LABS: MANUAL DIFF FLAG NO
[2023-08-10] MEDS: ondansetron HCL 4 MG/2 ML VIAL IVPUSH (12:06)
[2023-08-10 12:08] LABS: Basophils Percent Auto 0.4 % (0-2); Eosinophils Absolute Auto 0.3 X10*3/uL (0.0-0.4); Eosinophils Percent Auto 2.6 % (0-4); Hematocrit 43.9 % (37.0-47.0); Imm Gran Abs Auto 0.03 X10*3/uL (0.00-0.03); Imm Gran Pct Auto 0.3 % (0.0-0.4); Lymphocytes Absolute Auto 3.2 X10*3/uL (1.2-4.9); Lymphocytes Percent Auto 32.7 % (20-40); Mean Corpuscular HGB Conc 34.2 g/dl (31.0-35.0); Mean Corpuscular Volume 87.8 fL (80.0-98.0); Mean Platelet Volume 10.5 fL (9.4-12.3); Monocytes Absolute Auto 0.4 X10*3/uL (0.1-1.2); Monocytes Percent Auto 3.6 % (2-11); Neutrophils Absolute Auto 5.8 x10*3/uL (2.0-8.3); Neutrophils Percent Auto 60.4 % (45-73); Platelet Count 278 X10*3/uL (160-400); Red Cell Distribution Width 13.2 % (11.0-16.0); White Blood Count 9.7 X10*3/uL (4.8-10.8)
[2023-08-10 12:25] LABS: Appearance Urine Hazy; Color Urine Yellow; Glucose Urine UA 100 mg/dL (Negative); Leukocyte Esterase Urine Negative (Negative); Nitrite Urine Negative (Negative); PH 7.5 (5.0-9.0); Specific Gravity - Urine 1.015 (1.005-1.025); UMIC TRIGGER UACC YES; Urine Blood Trace (Negative); Urine Ketones Negative (Negative); Urine Protein 30 (1+) mg/dL (Neg-Trace)
[2023-08-10 12:35] LABS: UPreg QC Valid YES; Urine Pregnancy NEGATIVE (NEGATIVE)
[2023-08-10 12:44] LABS: Bacteria Urine Trace (None Seen); Hyaline Casts Urine 0-2 /LPF (0-2); RBC Urine 0-2 /HPF (0-2); WBC Urine 0-5 /HPF (0-5)
[2023-08-10] MEDS: 0.9 % Sodium Chloride 1,000 ML 999 ML IV (12:57)
[2023-08-10 12:59] LABS: Alanine Aminotransferase 44 U/L (0-31); Albumin Level 3.7 g/dL (3.5-5.0); Alkaline Phosphatase 127 U/L (39-117); Anion Gap 16 (12-20); Aspartate Amino Transferase 47 U/L (5-31); Bilirubin Total 0.4 mg/dL (0.0-1.0); Blood Urea Nitrogen 13 mg/dL (9-16); Calcium 9.3 mg/dL (8.4-10.2); Carbon Dioxide 22 mmol/L (22-29); Chloride 104 mmol/L (96-108); Creatinine Clr Calc Pharmacy 136.9; Estimated Glomerular Filt Rate > 60; Glucose Random 245 mg/dL (60-115); Lipase 12 U/L (8-78); Potassium 4.6 mmol/L (3.3-5.1); Sodium 137 mmol/L (135-145); Total Protein 8.1 g/dL (6.5-8.0)
[2023-08-10 13:05] LABS: COVID-19 Test Negative (Negative); IDNOW Serial# 08D9AD1C
[2023-08-10 13:19] VITALS: BP 129/80; PULSE 91; RESP 18; TEMP 36.6; O2SAT 98
[2023-08-10] MEDS: iohexoL 350 MG/ML 100 ML INFUS..BTL IV (13:49)
[2023-08-10 14:00] LABS: Glucose, Whole Blood 197 mg/dL (60-115)
[2023-08-10 14:03] LABS: IDNOW Serial# BCCEAD1C; Influenza A Negative (Negative); Influenza B2 Negative (Negative)
[2023-08-10 15:37] VITALS: BP 126/85; PULSE 92; RESP 18; TEMP 36.4; O2SAT 99
[2023-08-12 08:20] LABS: HBS Num1 1.16 mIU/mL (0-7.99); HBc Num1 0.12 S/CO (0.00-0.79); HBsAGNum1 0.45 S/CO (0.00-0.99); Hepatitis B Core Antibody Nonreactive (Nonreactive); Hepatitis B Surface Antigen Negative (Negative); ~HepC Num1 0.14 S/CO (0.00-0.79); ~Hepatitis A Antibody IgM Nonreactive (Nonreactive); ~Hepatitis B Surface Antibody NONREACTIVE (Nonreactive); ~Hepatitis C Antibody Nonreactive (Nonreactive)
== END 2023-08-10 16:00 | disposition home or self-care (01) ==
PROVIDERS: Physician Assistant; Physician Assistant Medical; Emergency Provider Emergency Medicine; PCP Family Medicine
DX: K52.9 Noninfective gastroenteritis and colitis, unspecified (principal); K76.0 Fatty (change of) liver, not elsewhere classified; E11.9 Type 2 diabetes mellitus without complications; Z91.148 Patient's other noncompliance with medication regimen for other reason; Z20.822 Contact with and (suspected) exposure to COVID-19
CPT/HCPCS: 36415; 74177; 80053; 81001; 81025; 82947; 83690; 85025; 86704; 86706; 86709; 86803; 87340; 87502; 87635; 96361; 96374; 99284; J2405; Q9967

== ENCOUNTER 2023-11-27 18:08 | Outpatient (REF) | payer MEDICAID, SELFPAY ==
[2023-11-27 18:42] LABS: Creatinine Urine 53.61 mg/dL; Microalbum/Creatinine Ratio Ur 20.5 ug/mg cr (<30)
== END 2023-11-27 18:09 | disposition home or self-care (01) ==
LOC: HO.HHCLNP 18:08
PROVIDERS: Visit Provider Family Medicine
DX: E11.65 Type 2 diabetes mellitus with hyperglycemia (principal); Z79.4 Long term (current) use of insulin
CPT/HCPCS: 82043; 82570

== ENCOUNTER 2023-12-05 18:05 | Emergency (ER) | payer MEDICAID, SELFPAY ==
--- NOTE | ~2023-12-05 | CT_ITS ---
EXAMINATION: CT ABDOMEN AND PELVIS WITHOUT CONTRAST CLINICAL INFORMATION: Right flank pain, question stone COMPARISON: 08/10/2023 TECHNIQUE: Multidetector volumetric imaging was performed from the superior aspect of the liver through the pubic symphysis. Sagittal and coronal reformatted images were obtained on the technologist's workstation. This CT examination was performed using dose optimization techniques as appropriate, variously including the following: *Automated exposure control *Adjustment of mA and/or kV according to patient size (this includes techniques or standardized protocols for targeted exams where dose is matched to indication/reason for exam; i.e. extremities or head) *Use of iterative reconstruction technique DLP: 780 mGy-cm FINDINGS: LUNG BASES: The visualized lung bases are unremarkable. LIVER, GALLBLADDER, AND BILIARY TREE: The liver appears mildly enlarged. No focal hepatic lesion or biliary ductal dilatation is identified on this noncontrast exam. Gallbladder is grossly unremarkable. PANCREAS: Unremarkable. SPLEEN: Unremarkable. ADRENAL GLANDS: Unremarkable. KIDNEYS AND URETERS: No hydronephrosis or obstructing calculus bilaterally. BLADDER: Mildly distended and grossly unremarkable. GASTROINTESTINAL TRACT: No evidence of bowel obstruction or significant wall thickening. The appendix is unremarkable. No free fluid or free air is seen. ABDOMINAL WALL: No significant hernia is appreciated. LYMPH NODES: Normal. VASCULAR: Unremarkable. PELVIC VISCERA: Unremarkable. OSSEOUS STRUCTURES: Unremarkable. CT/CT abdomen pelvis wo IV con IMPRESSION: No acute findings identified in the abdomen/pelvis. No hydronephrosis or obstructing calculus.
[2023-12-05 19:18] VITALS: BP 126/75; PULSE 90; RESP 18; TEMP 36.9; O2SAT 97; BMI 49.1
[2023-12-05 19:54] LABS: MANUAL DIFF FLAG NO
[2023-12-05 19:55] LABS: Basophils Percent Auto 0.3 % (0-2); Eosinophils Absolute Auto 0.3 X10*3/uL (0.0-0.4); Eosinophils Percent Auto 3.7 % (0-4); Hematocrit 39.4 % (37.0-47.0); Hemoglobin 13.3 g/dl (12.0-16.0); Imm Gran Abs Auto 0.02 X10*3/uL (0.00-0.03); Imm Gran Pct Auto 0.2 % (0.0-0.4); Lymphocytes Absolute Auto 3.3 X10*3/uL (1.2-4.9); Lymphocytes Percent Auto 37.8 % (20-40); Mean Corpuscular HGB Conc 33.8 g/dl (31.0-35.0); Mean Corpuscular Hemoglobin 29.8 pg (27.0-33.0); Mean Corpuscular Volume 88.1 fL (80.0-98.0); Mean Platelet Volume 9.9 fL (9.4-12.3); Monocytes Absolute Auto 0.4 X10*3/uL (0.1-1.2); Monocytes Percent Auto 4.9 % (2-11); Neutrophils Absolute Auto 4.6 x10*3/uL (2.0-8.3); Neutrophils Percent Auto 53.1 % (45-73); Platelet Count 246 X10*3/uL (160-400); Red Blood Count 4.47 X10*6/uL (4.20-5.50); Red Cell Distribution Width 13.9 % (11.0-16.0); White Blood Count 8.7 X10*3/uL (4.8-10.8)
[2023-12-05 20:01] LABS: Appearance Urine Clear; Color Urine Yellow; Glucose Urine UA Negative (Negative); Leukocyte Esterase Urine Negative (Negative); Nitrite Urine Negative (Negative); PH 5.5 (5.0-9.0); Specific Gravity - Urine >= 1.030 (1.005-1.025); UMIC TRIGGER UACC YES; Urine Blood Moderate (2+) (Negative); Urine Ketones Negative (Negative); Urine Protein Negative (Neg-Trace)
[2023-12-05 20:03] LABS: UPreg QC Valid YES; Urine Pregnancy NEGATIVE (NEGATIVE)
[2023-12-05 20:04] LABS: Bacteria Urine 1+ (None Seen); Hyaline Casts Urine 0-2 /LPF (0-2); UACC Culture Trigger YES
[2023-12-05 20:13] LABS: Anion Gap 13 (12-20); Blood Urea Nitrogen 10 mg/dL (9-16); Calcium 9.2 mg/dL (8.4-10.2); Carbon Dioxide 22 mmol/L (22-29); Chloride 111 mmol/L (96-108); Creatinine Clr Calc Pharmacy 134.3; Estimated Glomerular Filt Rate > 60; Glucose Random 71 mg/dL (60-115); Potassium 3.4 mmol/L (3.3-5.1); Sodium 143 mmol/L (135-145)
[2023-12-05 20:16] LABS: WBC Urine 0-5 /HPF (0-5)
--- NOTE | 2023-12-06 00:21 | ED.ABDPAIN ---
HPI - Abdominal Pain General Chief Complaint: Abdominal Pain Stated Complaint: dizzy, lower abd pain goes to back, vomit blood Time Seen by Provider: 12/06/23 00:12 Source: patient Mode of arrival: ambulatory Limitations: no limitations History of Present Illness HPI narrative: Patient complaining of right lower abdominal pain radiating to the right flank for last 2 days with nausea vomited 1 time no diarrhea denies any urinary symptoms except she noticed slight amount of blood in the urine earlier today no history of kidney stone Related Data Home Medications Medication Instructions Recorded Confirmed insulin aspart U-100 100 unit/mL 20 unit subcut BID 05/10/21 04/04/22 (3 mL) subcutaneous pen (Novolog FlexPen U-100 Insulin aspart) insulin glargine 100 unit/mL 50 unit subcut QPM 05/10/21 04/04/22 subcutaneous cartridge albuterol sulfate 90 mcg/actuation 2 puff inhalation Q6H PRN 06/14/21 04/04/22 aerosol inhaler bupropion HCl 150 mg 24 hr tablet, 150 mg PO QAM 06/14/21 04/04/22 extended release (Wellbutrin XL) glipizide 2.5 mg-metformin 250 mg 1 tab PO DAILY 06/14/21 04/04/22 tablet metformin 1,000 mg tablet 1,000 mg PO DAILY 06/14/21 04/04/22 quetiapine 200 mg tablet (Seroquel) 200 mg PO BEDTIME 06/14/21 04/04/22 quetiapine 50 mg tablet (Seroquel) 50 mg PO DAILY 06/14/21 04/04/22 Previous Rx's Medication Instructions Recorded epinephrine 0.3 mg/0.3 mL 0.3 mg (0.3 mL) IM Q15M PRN 03/24/21 injection, auto-injector (EpiPen) allergic reaction #2 ea cholecalciferol (vitamin D3) 25 25 mcg PO DAILY #30 caps 07/07/21 mcg (1,000 unit) capsule bismuth subsalicylate 262 mg 2 tab PO QID 14 days #112 tabs 04/13/22 chewable tablet metronidazole 500 mg tablet 500 mg PO TID 14 days #42 tabs 04/13/22 omeprazole 20 mg capsule,delayed 20 mg PO BID 14 days #28 caps 04/13/22 release tetracycline 500 mg capsule 500 mg PO QID 14 days #56 caps 04/13/22 ondansetron 4 mg disintegrating 4 mg PO DAILY PRN nausea and 08/10/23 tablet vomiting 5 days #10 tabs dicyclomine 20 mg tablet 20 mg PO TID PRN abdominal pain 12/06/23 #20 tabs Allergies Allergy/AdvReac Type Severity Reaction Status Date / Time haloperidol [From Haldol] Allergy Unknown UNKNOWN Verified 10/26/21 13:07 sertraline [Zoloft] Allergy Unknown UNKNOWN Verified 10/26/21 13:07 From Zoloft Allergy Unknown UNKNOWN Uncoded 07/21/21 08:03 Review of Systems Review of Systems Yes all other systems are reviewed and are negative COUNT INCLUDES [facility] Past Medical History Medical History Bipolar 1 disorder Depression GERD (gastroesophageal reflux disease) Sleep apnea History of anxiety History of asthma Hx of type 2 diabetes mellitus Hx of major depression Surgical History No history of previous surgery Family History Family History Mother Asthma No kidney function Father Diabetes Brother Tumor Brother Asthma Brother No problems noted. Sister No problems noted. Social History Social History Alcohol intake: never Patient Tobacco Use Status: Never used Tobacco Smoked in Last 30 Days: No Use of substances other than those prescribed or required for medical reasons: No Advance Directives: No Advance Directives Information Provided: Yes Patient : No Physical Exam ED Vital Signs: Vital Signs - 24 hr 12/05/23 19:18 12/06/23 02:00 Temperature 98.5 F 98.9 F Pulse Rate 90 88 Respiratory Rate 18 16 Blood Pressure 126/75 126/72 Pulse Oximetry 97 99 Oxygen Delivery Method Room Air Room Air BMI result Body Mass Index 49.1 Appearance: Alert. Oriented X3. No acute distress. Eyes: No pallor or icterus ENT: Pharynx normal. Oral Mucosa moist Neck: Normal inspection. Neck supple. CVS: Normal heart rate and rhythm. Pulses normal. Respiratory: No respiratory distress. Equal air entry bilateral, no wheezing/rales/rhonchi Abdomen: Soft and tenderness right lower abdomen Bowel sounds are present, no mass palpable, right CVA tenderness Skin: Skin warm and dry. Normal skin color. Normal skin turgor. Extremities: No lower extremity edema. No calf tenderness Neuro: Oriented X 3. Medical Decision Making Medical Decision Making [facility] Narrative: Patient workup with negative comes here with right lower abdominal pain negative for C appendix negative for kidney stone negative for ovarian cyst or UTI Differential Diagnosis Differential Diagnoses: The differential diagnosis associated with the presentation includes UTI/kidney stone/diverticulitis/appendicitis Admission/Observation Consideration of admission/observation: Escalation of care including admission/observation considered Lab Data [facility] Lab Attestation statement: I reviewed the patient's lab results. 12/05/23 19:50 12/05/23 19:50 Labs: Lab Results 12/05/23 12/05/23 Range/Units 19:50 19:54 WBC 8.7 (4.8-10.8) X10*3/uL RBC 4.47 (4.20-5.50) X10*6/uL Hgb 13.3 (12.0-16.0) g/dl Hct 39.4 (37.0-47.0) % MCV 88.1 (80.0-98.0) fL MCH 29.8 (27.0-33.0) pg MCHC 33.8 (31.0-35.0) g/dl RDW 13.9 (11.0-16.0) % Plt Count 246 (160-400) X10*3/uL MPV 9.9 (9.4-12.3) fL Immature Gran % (Auto) 0.2 (0.0-0.4) % Neut % (Auto) 53.1 (45-73) % Lymph % (Auto) 37.8 (20-40) % [place] % (Auto) 4.9 (2-11) % Eos % (Auto) 3.7 (0-4) % Baso % (Auto) 0.3 (0-2) % Lymph # (Auto) 3.3 (1.2-4.9) X10*3/uL [place] # (Auto) 0.4 (0.1-1.2) X10*3/uL Eos # (Auto) 0.3 (0.0-0.4) X10*3/uL Baso # (Auto) 0.0 (0.0-0.2) X10*3/uL Abs Immat Gran (auto) 0.02 (0.00-0.03) X10*3/uL Absolute Neuts (auto) 4.6 (2.0-8.3) x10*3/uL Absolute Nucleated RBC 0.000 (0.0-0.012) X10*3/uL Nucleated RBC % (auto) 0.0 (0.0-0.2) /100WBC Sodium 143 (135-145) mmol/L Potassium 3.4 (3.3-5.1) mmol/L Chloride 111 H (96-108) mmol/L Carbon Dioxide 22 (22-29) mmol/L Anion Gap 13 (12-20) BUN 10 (9-16) mg/dL Creatinine 0.68 (0.5-1.4) mg/dL Estim Creat Clear Calc 134.3 Estimated GFR > 60 Random Glucose 71 (60-115) mg/dL Calcium 9.2 (8.4-10.2) mg/dL Urine Color Yellow Urine Appearance Clear Urine pH 5.5 (5.0-9.0) Ur Specific [place] >= 1.030 H (1.005-1.025) Urine Protein Negative (Neg-Trace) mg/dL Urine Glucose (UA) Negative (Negative) mg/dL Urine Ketones Negative (Negative) mg/dL Urine Blood Moderate (2+) H (Negative) Urine Nitrite Negative (Negative) Ur Leukocyte Esterase Negative (Negative) Urine RBC 3-5 H (0-2) /HPF Urine WBC 0-5 (0-5) /HPF Ur Squamous Epith Cells 6-10 (0-2) /HPF Urine Bacteria 1+ (None Seen) Hyaline Casts 0-2 (0-2) /LPF Urine Test NEGATIVE (NEGATIVE) Independent Interpretation I performed an independent interpretation of an: CT Scan Radiology Impression Discussion of test interpretation with radiology: I have reviewed the radiologist's reading. Medications Administered Discontinued Medications Generic Name Dose Route Start Last Admin Trade Name Freq PRN Reason Stop Dose Admin Oxycodone HCl 10 mg 12/06/23 00:32 12/06/23 01:16 Oxycodone Hcl Immed Release 5 Mg Tablet PO 12/06/23 00:33 10 mg ONCE ONE Administration Discharge Plan Discharge Clinical Impression: Abdominal pain Patient Disposition: Home, Self-Care Instructions: Abdominal Pain (ED) Additional Instructions: Cause of abdominal pain is not very clear Drink plenty of fluids and take pain medication as prescribed Blood in the urine is likely from vagina from menstruation Your CT scan is negative for kidney stone Prescriptions: New dicyclomine 20 mg tablet 20 mg PO TID PRN (Reason: abdominal pain) Qty: 20 0RF No Action cholecalciferol (vitamin D3) 25 mcg (1,000 unit) capsule 25 mcg PO DAILY Qty: 30 6RF bismuth subsalicylate 262 mg tablet,chewable 2 tab PO QID 14 Days Qty: 112 0RF omeprazole 20 mg capsule,delayed release(DR/EC) 20 mg PO BID 14 Days Qty: 28 0RF tetracycline 500 mg capsule 500 mg PO QID 14 Days Qty: 56 0RF Rx Instructions: take 1 hour after Bismuth metronidazole 500 mg tablet 500 mg PO TID 14 Days Qty: 42 0RF epinephrine [EpiPen] 0.3 mg/0.3 mL auto-injector 0.3 mg IM Q15M PRN (Reason: allergic reaction) Qty: 2 0RF Rx Instructions: not to exceed 6 doses per episode ondansetron 4 mg tablet,disintegrating 4 mg PO DAILY PRN (Reason: nausea and vomiting) 5 Days Qty: 10 0RF insulin glargine 100 unit/mL cartridge 50 unit subcut QPM insulin aspart U-100 [Novolog FlexPen U-100 Insulin] 100 unit/mL (3 mL) insulin pen 20 unit subcut BID bupropion HCl [Wellbutrin XL] 150 mg tablet extended release 24 hr 150 mg PO QAM quetiapine [Seroquel] 200 mg tablet 200 mg PO BEDTIME quetiapine [Seroquel] 50 mg tablet 50 mg PO DAILY metformin 1,000 mg tablet 1,000 mg PO DAILY albuterol sulfate 90 mcg/actuation HFA aerosol inhaler 2 puff inhalation Q6H PRN glipizide-metformin 2.5-250 mg tablet 1 tab PO DAILY Interventions: ED Discharge Assessment Last Done: 12/06/23 02:49 Discharge Date/Time: 12/06/23 02:50
[2023-12-06] MEDS: oxyCODONE HCl Immed Release 5 MG TABLET 10 MG PO (01:16)
[2023-12-06 02:00] VITALS: BP 126/72; PULSE 88; RESP 16; TEMP 37.2; O2SAT 99
== END 2023-12-06 02:50 | disposition home or self-care (01) ==
PROVIDERS: Emergency Provider Internal Medicine; PCP Family Medicine
DX: R10.30 Lower abdominal pain, unspecified (principal); E11.9 Type 2 diabetes mellitus without complications; I10 Essential (primary) hypertension; Z79.4 Long term (current) use of insulin; Z79.899 Other long term (current) drug therapy; Z79.84 Long term (current) use of oral hypoglycemic drugs
CPT/HCPCS: 36415; 74176; 80048; 81001; 81003; 81025; 85025; 87086; 99284

== ENCOUNTER 2024-03-17 08:41 | Outpatient (REF) | payer MEDICAID, SELFPAY ==
--- NOTE | ~2024-03-17 | US_ITS ---
EXAMINATION: US COMPLETE ABDOMEN WITH LIVER ELASTOGRAPHY CLINICAL INFORMATION: Obesity. COMPARISON: None available. TECHNIQUE: Real-time imaging of the abdominal viscera. Noninvasive ultrasound liver fibrosis assessment is performed using Lizzeth ElastPQ point quantification shear wave elastography (2D-SWE) with a C5-2 MHz transducer. Multiple elastography samples are obtained. FINDINGS: PANCREAS: Normal. The visualized pancreatic head and body are normal in appearance. The remainder of the pancreas is obscured from visualization by the overlying bowel gas. ABDOMINAL AORTA: The proximal, middle, and distal aortic segments are normal in caliber. INFERIOR VENA CAVA: Visualized portions are normal. LIVER: The liver demonstrates normal contour and generally increased echogenicity. No focal lesion or intrahepatic biliary duct dilatation. The right lobe measures 20.9 cm in length. The left lobe measures 15.1 cm in length. Portal flow is towards the liver (hepatopetal). Shear wave liver elastography median stiffness is 1.48 m/s (reference: normal median stiffness is 1.3 m/s or less). IQR/median stiffness to assess sampling precision is 0.24 (reference: good quality data set is IQR/median stiffness of 0.15 or less). GALLBLADDER: Normal. The gallbladder is physiologically distended without evidence of stones, sludge, polyps, wall thickening or pericholecystic fluid. COMMON BILE DUCT: Normal in caliber measuring 0.3 cm in diameter. RIGHT KIDNEY: Normal. No hydronephrosis. No renal calculi or focal parenchymal lesions. The kidney measures 11.5 cm in maximum dimension. LEFT KIDNEY: Normal. No hydronephrosis. No renal calculi or focal parenchymal lesions. The kidney measures 10.7 cm in maximum dimension. SPLEEN: Normal. The spleen measures 11.4 cm in maximum dimension. FREE FLUID: None. US/US abdomen comp w elastography IMPRESSION: 1. There is hepatomegaly. 2. There is generalized increase in hepatic echotexture, consistent with fatty infiltration or hepatocellular disease. Please correlate clinically. No focal hepatic mass or intrahepatic biliary dilatation is seen. 3. Liver elastography: Although measurements appear to rule out compensated advanced chronic liver disease, there is statistical variability of the sampling which decreases accuracy. REFERENCE: Society of Radiologists in Ultrasound Liver Stiffness Thresholds (2020): LIVER STIFFNESS THRESHOLDS: *Liver Stiffness equal or less than 1.3 m/s: High probability of being normal. *Liver Stiffness less than 1.7 m/s: In the absence of other known clinical signs, rules out compensated advanced chronic liver disease. *Liver Stiffness 1.7-2.1 m/s: Suggestive of compensated advanced chronic liver disease but need further test for confirmation. *Liver Stiffness over 2.1 m/s: Rules in compensated advanced chronic liver disease. *Liver Stiffness over 2.4 m/s: Suggestive of clinically significant portal hypertension. QUALITY OF DATA SET: *IQR/Median value equal or less than 0.15 implies a quality data set. *IQR/Median value over 0.15 implies a poor quality data set. SIGNIFICANT CHANGE FROM PRIOR EXAM: Significant change if liver stiffness measurement is 10% or greater from prior exam. OTHER CONSIDERATIONS: The stage of liver fibrosis may be overestimated in the setting of acute hepatitis, liver inflammation, elevated liver function tests, hepatic vascular congestion, obstructive cholestasis, non-fasting state, and infiltrative diseases such as amyloidosis and lymphoma. In some patients with NAFLD, the liver stiffness thresholds for compensated advanced chronic liver disease may be lower. In causes other than viral hepatitis and NAFLD, liver stiffness thresholds are not well established.
== END 2024-03-17 08:42 | disposition home or self-care (01) ==
LOC: HO.US 08:41
PROVIDERS: PCP Family Medicine; Visit Provider Family Medicine
DX: K76.0 Fatty (change of) liver, not elsewhere classified (principal)
CPT/HCPCS: 76700; 76981

== ENCOUNTER 2024-03-20 21:35 | Emergency (ER) | payer MEDICAID, SELFPAY ==
--- NOTE | ~2024-03-20 | XR_ITS ---
EXAMINATION: XR ELBOW, LEFT CLINICAL INFORMATION: Fall. Pain. COMPARISON: None available. TECHNIQUE: AP and lateral views of the left elbow. FINDINGS: The bones and soft tissues are normal. No fracture or joint effusion. Alignment is anatomic. Joint spaces are maintained. XR/XR elbow LT min 3V IMPRESSION: Normal left elbow.
--- NOTE | ~2024-03-20 | XR_ITS ---
EXAMINATION: XR KNEE, LEFT CLINICAL INFORMATION: Fall. Pain COMPARISON: None available. TECHNIQUE: Four views of the left knee. FINDINGS: No fracture or joint effusion. Alignment is anatomic. Joint spaces are maintained. No abnormal soft tissue calcification. XR/XR knee LT 4V IMPRESSION: Normal left knee radiographs.
--- NOTE | ~2024-03-20 | CT_ITS ---
EXAMINATION: HEAD CT WITHOUT CONTRAST CERVICAL SPINE CT WITHOUT CONTRAST CLINICAL INFORMATION: Trauma. Pain. COMPARISON: 05/19/2017 TECHNIQUE: Contiguous axial imaging of the head was performed without the administration of IV contrast. Axial multidetector volumetric images were also performed through the cervical spine without intravenous contrast. Multiplanar reconstructed images in coronal and sagittal orientations were submitted. This CT examination was performed using dose optimization techniques as appropriate, variously including the following: *Automated exposure control *Adjustment of mA and/or kV according to patient size (this includes techniques or standardized protocols for targeted exams where dose is matched to indication/reason for exam; i.e. extremities or head) *Use of iterative reconstruction technique DOSE: 1608 mGy-cm FINDINGS: HEAD: There is no evidence of acute intracranial hemorrhage or territorial infarction. No abnormal mass-effect or midline shift. No extra-axial fluid collections. [place] to white matter differentiation is well preserved. The ventricles are normal in size and configuration. There is no abnormal attenuation within the brain parenchyma. The soft tissues and osseous structures are normal. The sinuses and mastoid air cells are clear. CERVICAL SPINE: Vertebral body heights are normal. No fractures of the vertebral bodies or posterior elements. Vertebral alignment is normal. No subluxation. The craniocervical and atlantoaxial articulations are normal. Minimal degenerative disc disease at C2-C3 and C3-C4. Uncovertebral osteophytes produce mild right neural foraminal encroachment at C2-C3. Facet joints are normal. No central canal stenosis. No significant paravertebral soft tissue swelling. Cervical soft tissues are unremarkable. Imaged portions of the lung apices are clear. CT/CT cervical spine wo IV con IMPRESSION: 1. No acute intracranial pathology. 2. No acute fracture or malalignment in the cervical spine.
--- NOTE | ~2024-03-20 | CT_ITS ---
EXAMINATION: CT CHEST WITHOUT CONTRAST CT ABDOMEN AND PELVIS WITHOUT CONTRAST CLINICAL INFORMATION: Pain on L flank after fall and trauma. COMPARISON: 12/06/2023. TECHNIQUE: Multidetector volumetric imaging was performed from the thoracic inlet through the pubic symphysis. Sagittal and coronal images were reformatted. This CT examination was performed using dose optimization techniques as appropriate, variously including the following: *Automated exposure control *Adjustment of mA and/or kV according to patient size (this includes techniques or standardized protocols for targeted exams where dose is matched to indication/reason for exam; i.e. extremities or head) *Use of iterative reconstruction technique DOSE: 1754 mGy-cm FINDINGS: -CHEST- LUNG: The lungs are clear without focal opacity or nodule. MEDIASTINUM: The mediastinum in normal. The central vascular structures are unremarkable. No hilar or mediastinal lymphadenopathy. PERICARDIUM/PLEURA: No significant effusion. No pleural mass or thickening. CHEST WALL/AXILLA: Unremarkable. -ABDOMEN/PELVIS- LIVER, GALLBLADDER, BILIARY TREE: Relative hypoattenuation of the hepatic parenchyma is consistent with steatosis. Liver is mildly enlarged, measuring 21 cm craniocaudal. No focal hepatic lesions or biliary duct dilatation. The gallbladder is unremarkable with no evidence of radiopaque gallstones, gallbladder wall thickening, or obvious pericholecystic inflammatory changes. PANCREAS: Normal; no mass or surrounding fluid. SPLEEN: Normal size. No focal lesion. ADRENAL GLANDS: Normal; no mass. KIDNEYS AND URETERS: The kidneys are normal in size, shape, and attenuation. No hydronephrosis, hydroureter, or calculi seen. No perinephric stranding. BLADDER: Unremarkable. GASTROINTESTINAL TRACT: Stomach, small bowel, and colon are normal in caliber. No bowel wall thickening or surrounding inflammatory changes. Appendix is normal. No intraperitoneal free fluid or free air. ABDOMINAL WALL: No significant hernia is appreciated. VASCULATURE: Aorta is normal in size. No significant calcific atherosclerotic disease. LYMPH NODES: No lymphadenopathy. . PELVIC VISCERA: The uterus and adnexa are unremarkable. OSSEUS STRUCTURES: Acute fracture or malalignment identified in the chest, abdomen, and pelvis. Thoracolumbar spine is unremarkable. CT/CT abdomen pelvis wo IV con IMPRESSION: 1. No acute traumatic abnormalities are identified in the chest, abdomen, and pelvis. 2. Hepatic steatosis and mild hepatomegaly.
[2024-03-20 21:55] VITALS: BP 152/90; PULSE 104; RESP 14; TEMP 36.5; O2SAT 97; BMI 47.0
[2024-03-20 22:23] VITALS: BP 129/81; PULSE 103; RESP 15; TEMP 36.8; O2SAT 95
--- NOTE | 2024-03-20 22:57 | PC.NURSE ---
pt from home, a&x4, respirations even and unlabored, pt reports taking a shower and the shampoo bottle fell and she slipped on it and hit her left side. pt reports she has developed some dizziness. pt also reporting left sided pain from the shoulder to her hip. pt denies chest pain and sob. pt neuro in tact.
--- NOTE | 2024-03-20 23:42 | ED_ITS ---
HPI - Fall General Chief Complaint: Fall Stated Complaint: Fall in bath Time Seen by Provider: 03/20/24 22:58 Source: patient and old records reviewed Mode of arrival: ambulatory Limitations: no limitations History of Present Illness HPI Narrative: 38 yo female with obesity, bipolar, IDDM, asthma, anxiety, schizophrenia not on thinners reports she went to reach for soap in the shower slipped landed on L side injuring head, neck, ribs, shoulder elbow, low back. knee. NO LOC was up on her own not on ground long time. Now has pain with movements and walking complaint: fall Onset (ago): minute(s) (prior to arrival ) Fall from: standing (shower) Fall witnessed: no Place fall occurred: home Loss of consciousness: none Prolonged down time: no Symptoms prior to fall: none Context: tripped/slipped Location of injury: head, neck and back Location of injury - extremities: left: shoulder, elbow and knee Severity: moderate Quality: dull and aching Associated symptoms (after fall): denies Related Data Home Medications ?Medication ?Instructions ?Recorded ?Confirmed insulin aspart U-100 100 unit/mL 20 unit subcut BID 05/10/21 04/04/22 (3 mL) subcutaneous pen (Novolog FlexPen U-100 Insulin aspart) insulin glargine 100 unit/mL 50 unit subcut QPM 05/10/21 04/04/22 subcutaneous cartridge albuterol sulfate 90 mcg/actuation 2 puff inhalation Q6H PRN 06/14/21 04/04/22 aerosol inhaler bupropion HCl 150 mg 24 hr tablet, 150 mg PO QAM 06/14/21 04/04/22 extended release (Wellbutrin XL) glipizide 2.5 mg-metformin 250 mg 1 tab PO DAILY 06/14/21 04/04/22 tablet metformin 1,000 mg tablet 1,000 mg PO DAILY 06/14/21 04/04/22 quetiapine 200 mg tablet (Seroquel) 200 mg PO BEDTIME 06/14/21 04/04/22 quetiapine 50 mg tablet (Seroquel) 50 mg PO DAILY 06/14/21 04/04/22 Previous Rx's ?Medication ?Instructions ?Recorded epinephrine 0.3 mg/0.3 mL 0.3 mg (0.3 mL) IM Q15M PRN 03/24/21 injection, auto-injector (EpiPen) allergic reaction #2 ea cholecalciferol (vitamin D3) 25 25 mcg PO DAILY #30 caps 07/07/21 mcg (1,000 unit) capsule bismuth subsalicylate 262 mg 2 tab PO QID 14 days #112 tabs 04/13/22 chewable tablet metronidazole 500 mg tablet 500 mg PO TID 14 days #42 tabs 04/13/22 omeprazole 20 mg capsule,delayed 20 mg PO BID 14 days #28 caps 04/13/22 release tetracycline 500 mg capsule 500 mg PO QID 14 days #56 caps 04/13/22 ondansetron 4 mg disintegrating 4 mg PO DAILY PRN nausea and 08/10/23 tablet vomiting 5 days #10 tabs dicyclomine 20 mg tablet 20 mg PO TID PRN abdominal pain 12/06/23 #20 tabs cyclobenzaprine 10 mg tablet 10 mg PO TID PRN muscle spasm #20 03/21/24 tabs lidocaine 5 % topical patch 1 patch topical DAILY #30 ea 03/21/24 Allergies Allergy/AdvReac Type Severity Reaction Status Date / Time haloperidol [From Haldol] Allergy Unknown Numbness Verified 03/20/24 21:56 sertraline [Zoloft] Allergy Unknown UNKNOWN Verified 03/20/24 21:56 From Zoloft Allergy Unknown UNKNOWN Uncoded 03/20/24 21:56 Review of Systems Review of Systems: Constitutional : No Fever, No Chills ENT/Mouth : No Ear Pain, No Hoarseness, No sore throat Eyes: No Eye Pain, No Swelling, No Redness, No Foreign Body Cardiovascular : No Chest Pain, No SOB Respiratory : No Cough, No Dyspnea Gastrointestinal : No Nausea, No Vomiting, No Diarrhea, No abdominal Pain Genitourinary : No Dysuria, No Hematuria Musculoskeletal : positive joint pain, No Myalgias, No Joint Swelling Skin : No Skin lacerations, No rash Neuro : No Weakness, No Numbness, No Loss of Consciousness, No Dizziness, pos Headache Psych : No Anxiety/Panic, No Depression Heme/Lymph: no easy bruising, no Lymphadenopathy Endocrine : No Polyuria, No Polydipsia All other systems reviewed and are negative PMFSH Past Medical History Attestation statement: The following information was validated with the patient. Source: old records reviewed Medical History Bipolar 1 disorder Depression GERD (gastroesophageal reflux disease) Sleep apnea History of anxiety History of asthma Hx of type 2 diabetes mellitus Hx of major depression Surgical History No history of previous surgery Family History Family History Mother Asthma No kidney function Father Diabetes Brother Tumor Brother Asthma Brother No problems noted. Sister No problems noted. Social History Social History Alcohol intake: never Patient Tobacco Use Status: Never used Tobacco Smoked in Last 30 Days: No Use of substances other than those prescribed or required for medical reasons: No Advance Directives: No Advance Directives Information Provided: No Patient : No Physical Exam Vital Signs: Vital Signs: Last Vital Signs Temp 98.2 F 03/20/24 22:23 Pulse 103 H 03/20/24 22:23 Resp 15 03/20/24 22:23 BP 129/81 03/20/24 22:23 Pulse Ox 95 03/20/24 22:23 O2 Del Method Room Air 03/20/24 22:23 BMI result Body Mass Index 47.0 Appearance: Alert. Oriented X3. No acute distress. Eyes: Pupils equal, round and reactive to light. ENT: Pharynx normal. ttp along L parietal scalp no racoon eyes no olvera sign Neck: Normal inspection. Neck supple. lateral ttp CVS: Normal heart rate and rhythm. Pulses normal. Chest: mild lateral rib ttp Respiratory: No respiratory distress. Breath sounds normal. Abdomen: Soft and nontender. Back: mild lumbar ttp no step off Skin: Skin warm and dry. Normal skin color. Normal skin turgor. Extremities: can range L shoulder reports ttp on L knee and L elbow distal NV intact Neuro: Oriented X 3. No motor deficit. No sensory deficit. Medications Administered Discontinued Medications Generic Name Dose Route Start Last Admin Trade Name Freq PRN Reason Stop Dose Admin Acetaminophen 650 mg 03/20/24 23:53 03/21/24 00:18 Acetaminophen 325 Mg Tablet PO 03/20/24 23:54 650 mg ONCE ONE Administration Oxycodone HCl 5 mg 03/20/24 23:53 03/21/24 00:18 Oxycodone Hcl Immed Release 5 Mg Tablet PO 03/20/24 23:54 5 mg ONCE ONE Administration Medical Decision Making Medical Decision Making [facility] Narrative: 38 yo female with obesity, bipolar, IDDM, asthma, anxiety, schizophrenia not on thinners here s/p mechanical fall in shower now with entire L side of body injury at this time imaging ordered along with PO pain medications. Differential Diagnosis Differential Diagnoses: The differential diagnosis associated with the presentation includes sprain strain fracture contusion Admission/Observation Consideration of admission/observation: Escalation of care including admission/observation considered GCS 15 unless sig injury can be DC home Lab Data [facility] Lab Attestation statement: I reviewed the patient's lab results. Independent Interpretation I performed an independent interpretation of an: Plain X-Ray (no trauma) and CT Scan (no trauma) Radiology Impression Discussion of test interpretation with radiology: I have reviewed the radiologist's reading. Independent Historian Clinical information obtained from an independent historian. History obtained from or confirmed by: Spouse External Record Review External record reviewed: Inpatient record Prescription Management I considered prescription management with: Pain Medication and Other Discharge Plan Discharge Clinical Impression: Head injury Qualifiers: Encounter type: initial encounter Qualified Code(s): S09.90XA - Unspecified i njury of head, initial encounter Low back strain Qualifiers: Encounter type: initial encounter Qualified Code(s): S39.012A - Strain of muscle, fascia and tendon of lower back, initial encounter Patient Disposition: Home, Self-Care Instructions: Muscle Strain (ED), Head Injury (ED), Back Pain (ED) Additional Instructions: return for worsening symptoms, pain, confusion, vomiting, weakness, numbness or any other concerns. no trauma or broken bones seen on xrays of CT scan of your body Prescriptions: New cyclobenzaprine 10 mg tablet 10 mg PO TID PRN (Reason: muscle spasm) Qty: 20 0RF lidocaine 5 % adhesive patch,medicated 1 patch topical DAILY Qty: 30 0RF Rx Instructions: leave on most painful area for up to 12 hrs No Action cholecalciferol (vitamin D3) 25 mcg (1,000 unit) capsule 25 mcg PO DAILY Qty: 30 6RF bismuth subsalicylate 262 mg tablet,chewable 2 tab PO QID 14 Days Qty: 112 0RF omeprazole 20 mg capsule,delayed release(DR/EC) 20 mg PO BID 14 Days Qty: 28 0RF tetracycline 500 mg capsule 500 mg PO QID 14 Days Qty: 56 0RF Rx Instructions: take 1 hour after Bismuth metronidazole 500 mg tablet 500 mg PO TID 14 Days Qty: 42 0RF epinephrine [EpiPen] 0.3 mg/0.3 mL auto-injector 0.3 mg IM Q15M PRN (Reason: allergic reaction) Qty: 2 0RF Rx Instructions: not to exceed 6 doses per episode dicyclomine 20 mg tablet 20 mg PO TID PRN (Reason: abdominal pain) Qty: 20 0RF ondansetron 4 mg tablet,disintegrating 4 mg PO DAILY PRN (Reason: nausea and vomiting) 5 Days Qty: 10 0RF insulin glargine 100 unit/mL cartridge 50 unit subcut QPM insulin aspart U-100 [Novolog FlexPen U-100 Insulin] 100 unit/mL (3 mL) insulin pen 20 unit subcut BID bupropion HCl [Wellbutrin XL] 150 mg tablet extended release 24 hr 150 mg PO QAM quetiapine [Seroquel] 200 mg tablet 200 mg PO BEDTIME quetiapine [Seroquel] 50 mg tablet 50 mg PO DAILY metformin 1,000 mg tablet 1,000 mg PO DAILY albuterol sulfate 90 mcg/actuation HFA aerosol inhaler 2 puff inhalation Q6H PRN glipizide-metformin 2.5-250 mg tablet 1 tab PO DAILY Print Language: French
[2024-03-21] MEDS: Acetaminophen 325 MG TABLET 650 MG PO (00:18)
[2024-03-21] MEDS: oxyCODONE HCl Immed Release 5 MG TABLET PO (00:18)
--- NOTE | 2024-03-21 00:19 | PC.NURSE ---
pt medicated per mar, tolerated well with water.
[2024-03-21 01:48] VITALS: BP 153/90; PULSE 100; RESP 17; TEMP 37.1; O2SAT 95
== END 2024-03-21 01:49 | disposition home or self-care (01) ==
PROVIDERS: Emergency Provider Emergency Medicine; PCP Family Medicine
DX: S09.90XA Unspecified injury of head, initial encounter (principal); S39.012A Strain of muscle, fascia and tendon of lower back, initial encounter; F20.9 Schizophrenia, unspecified; E11.9 Type 2 diabetes mellitus without complications; R51.9 Headache, unspecified; M25.522 Pain in left elbow; M54.2 Cervicalgia; M25.562 Pain in left knee; R10.2 Pelvic and perineal pain; W18.2XXA Fall in (into) shower or empty bathtub, initial encounter; Y93.9 Activity, unspecified; Y92.002 Bathroom of unspecified non-institutional (private) residence as the place of occurrence of the external cause; Y99.8 Other external cause status; Z79.4 Long term (current) use of insulin; Z79.899 Other long term (current) drug therapy
CPT/HCPCS: 70450; 71250; 72125; 73080; 73564; 74176; 99284

== ENCOUNTER 2024-03-27 14:25 | Outpatient (REF) | payer MEDICAID, SELFPAY ==
--- NOTE | ~2024-03-27 | XR_ITS ---
EXAMINATION: XR LUMBOSACRAL SPINE CLINICAL INFORMATION: Acute left-sided pain after fall. COMPARISON: 05/19/2017 TECHNIQUE: Three views of the lumbosacral spine. FINDINGS: There are five segmented, nonrib-bearing vertebra of the lumbar spine. The vertebral bodies have normal height and alignment. The curvature of the lumbar spine is normal. The disc spaces are maintained. No evidence of degenerative disc disease. No pars interarticularis defect or vertebral compression fracture. The anterior and posterior elements are intact. No lytic or osteoblastic lesion. No erosions or syndesmophyte formation. Sacrum and sacroiliac joints are normal. XR/XR lumbar spine 2-3V IMPRESSION: Normal lumbar spine. No fracture or malalignment.
== END 2024-03-27 14:26 | disposition home or self-care (01) ==
LOC: HO.HHCX 14:25
PROVIDERS: Visit Provider Internal Medicine
DX: M54.50 Low back pain, unspecified (principal)
CPT/HCPCS: 72100

== ENCOUNTER 2024-05-05 14:39 | Outpatient (RCR) | payer MEDICAID, SELFPAY | END 2024-05-29 15:56 | disposition home or self-care (01) | LOC: HO.PT 14:39 | PROVIDERS: PCP Family Medicine; Visit Provider Family Medicine | DX: M54.50 Low back pain, unspecified (principal); G89.29 Other chronic pain | CPT/HCPCS: 97110; 97162 ==

== ENCOUNTER 2024-06-07 10:23 | Emergency (ER) | payer MEDICAID, SELFPAY ==
--- NOTE | ~2024-06-07 | XR_ITS ---
EXAMINATION: XR CHEST CLINICAL INFORMATION: Reason for Exam cough, wheezing COMPARISON: Chest radiograph 06/19/2021 TECHNIQUE: 2 views of the chest FINDINGS: Lines and tubes: None. Clear lungs. No pleural effusion. No pneumothorax. Normal cardiomediastinal silhouette. XR/XR chest 2V IMPRESSION: * Clear lungs.
[2024-06-07 10:33] VITALS: BP 129/77; BP 132/80; PULSE 86; PULSE 97; RESP 18; TEMP 36.4; O2SAT 98; BMI 47.9
--- NOTE | 2024-06-07 11:19 | ED_ITS ---
HPI - URI/Sore Throat General Chief Complaint: Upper Respiratory Symptoms Stated Complaint: cough congestion low fever x5 days took tylenol Time Seen by Provider: 06/07/24 10:40 Source: patient and EMS Mode of arrival: EMS Limitations: no limitations History of Present Illness ED Provider: Robina Palumbo APRN HPI Narrative: 38-year-old female with a history of anxiety, depression, schizophrenia, diabetes, asthma presents the ER with complaints of 5 days of cough, congestion, body aches and fever with max temp of 102 degrees. Patient was she reports she went to her primary care doctor and had negative COVID and flu testing and was diagnosed with a viral illness and sent home with supportive measures. Continues to have symptoms. No recent travel. No sick contacts. No chest pain , shortness of breath, leg swelling, leg pain, vomiting, diarrhea, neck pain, neck stiffness, skin rash Related Data Home Medications ?Medication ?Instructions ?Recorded ?Confirmed insulin aspart U-100 100 unit/mL 20 unit subcut BID 05/10/21 04/04/22 (3 mL) subcutaneous pen (Novolog FlexPen U-100 Insulin aspart) insulin glargine 100 unit/mL 50 unit subcut QPM 05/10/21 04/04/22 subcutaneous cartridge albuterol sulfate 90 mcg/actuation 2 puff inhalation Q6H PRN 06/14/21 04/04/22 aerosol inhaler bupropion HCl 150 mg 24 hr tablet, 150 mg PO QAM 06/14/21 04/04/22 extended release (Wellbutrin XL) glipizide 2.5 mg-metformin 250 mg 1 tab PO DAILY 06/14/21 04/04/22 tablet metformin 1,000 mg tablet 1,000 mg PO DAILY 06/14/21 04/04/22 quetiapine 200 mg tablet (Seroquel) 200 mg PO BEDTIME 06/14/21 04/04/22 quetiapine 50 mg tablet (Seroquel) 50 mg PO DAILY 06/14/21 04/04/22 Previous Rx's ?Medication ?Instructions ?Recorded epinephrine 0.3 mg/0.3 mL 0.3 mg (0.3 mL) IM Q15M PRN 03/24/21 injection, auto-injector (EpiPen) allergic reaction #2 ea cholecalciferol (vitamin D3) 25 25 mcg PO DAILY #30 caps 07/07/21 mcg (1,000 unit) capsule bismuth subsalicylate 262 mg 2 tab PO QID 14 days #112 tabs 04/13/22 chewable tablet metronidazole 500 mg tablet 500 mg PO TID 14 days #42 tabs 04/13/22 omeprazole 20 mg capsule,delayed 20 mg PO BID 14 days #28 caps 04/13/22 release tetracycline 500 mg capsule 500 mg PO QID 14 days #56 caps 04/13/22 ondansetron 4 mg disintegrating 4 mg PO DAILY PRN nausea and 08/10/23 tablet vomiting 5 days #10 tabs dicyclomine 20 mg tablet 20 mg PO TID PRN abdominal pain 12/06/23 #20 tabs cyclobenzaprine 10 mg tablet 10 mg PO TID PRN muscle spasm #20 03/21/24 tabs lidocaine 5 % topical patch 1 patch topical DAILY #30 ea 03/21/24 Allergies Allergy/AdvReac Type Severity Reaction Status Date / Time haloperidol [From Haldol] Allergy Unknown Numbness Verified 06/07/24 10:36 sertraline [Zoloft] Allergy Unknown UNKNOWN Verified 06/07/24 10:36 Review of Systems Review of Systems: Yes all other systems are reviewed and are negative Constitutional: Constitutional: Reports no additional constitutional complaints, Reports body ache(s), Reports chills, Reports fever(s), Denies headache(s) and Denies weakness Eyes: Eyes: Reports no additional eye complaints and Denies change in vision ENT: Reports system reviewed and no additional complaints, except as documented, Denies dizziness, Denies headache(s), Reports nasal congestion, Denies nasal discharge and Denies neck pain Cardiovascular: Cardiovascular: Reports no additional cardiovascular complaints, Denies chest pain, Denies leg edema and Denies dyspnea Respiratory: Respiratory: Reports no additional respiratory complaints, Reports cough and Denies dyspnea Gastrointestinal: Gastrointestinal: Reports no additional gastrointestinal c omplaints, Denies abdominal pain, Denies diarrhea, Denies nausea and Denies vomiting Genitourinary: Genitourinary: Reports no additional female genitourinary complaints and Denies urinary incontinence Musculoskeletal: Musculoskeletal: Reports no additional musculoskeletal complaints, Denies back pain, Denies arthralgias, Denies joint swelling, Denies neck pain, Denies numbness and Denies tingling Integumentary/Breasts: Skin/Breast: Reports system reviewed and no additional complaints, except as docu and Denies rash Neurologic: Reports system reviewed and no additional complaints, except as documented, Denies Abnormal speech present, Denies dizziness, Denies headache(s), Denies numbness, Denies tingling and Denies weakness PMFSH Past Medical History Attestation statement: The following information was validated with the patient. Source: old records reviewed and nursing notes reviewed Medical History Bipolar 1 disorder Depression GERD (gastroesophageal reflux disease) Sleep apnea History of anxiety History of asthma Hx of type 2 diabetes mellitus Hx of major depression Surgical History No history of previous surgery Family History Family History Mother Asthma No kidney function Father Diabetes Brother Tumor Brother Asthma Brother No problems noted. Sister No problems noted. Social History Social History Alcohol intake: never Patient Tobacco Use Status: Never used Tobacco Advance Directives: No Advance Directives Information Provided: No Do you have a plan to hurt others: No Plan Physical Exam Vital Signs: Vital Signs: Last Vital Signs Temp 97.5 F 06/07/24 10:33 Pulse 86 06/07/24 10:33 Resp 18 06/07/24 10:33 BP 129/77 06/07/24 10:33 Pulse Ox 98 06/07/24 10:33 O2 Del Method Room Air 06/07/24 10:33 BMI result Body Mass Index 47.9 Const: General: cooperative, healthy appearing, comfortable and no acute distress Orientation/consciousness: patient oriented x3 Limitations: no limitations HEENT: Head: Yes normal to inspection Ears: hearing grossly normal bilaterally and TM's normal bilaterally General nose exam: Normal external nose present Face and sinus: Yes normal facial exam Mouth: Normal oral and palatal mucosa present Throat: Yes posterior oropharynx normal, Yes tonsils normal and Yes uvula midline Eyes: General: appearance normal, both eyes and all related structures Pup ils: Equal, round and reactive pupils present Neck: Neck: Yes normal visual inspection, Yes full ROM, Yes no lymphadenopathy and Yes no meningeal signs Chest: Chest palpation & inspection: normal inspection of the chest Resp: Other: Slight expiratory wheezing Effort & Inspection: normal respiratory effort Cardio: Rate: regular rate Rhythm: regular rhythm Peripheral pulses: Peripheral pulses 2+ throughout GI: Inspection: Yes normal to inspection Palpation (GI): Soft to palpation and nontender Auscultation: normal bowel sounds Back/Spine/Pelvis: Thoracic/Lumbar Spine: thoracic and lumbar spine normal to inspection Skin: General skin exam: no rashes or lesions noted Neuro: General: patient oriented x3, no meningeal signs, no focal motor deficits and normal sensation to monofilament Cranial nerves: Yes Equal, round and reactive pupils present Cognition (Neuro): normal cognition Speech: No Abnormal speech present Gait exam (Neuro): Normal gait present Motor exam (neuro): 5/5 motor strength present throughout Extrem: General: Yes normal to inspection, Yes no pedal edema and Yes no calf tenderness Course Course Course Narrative: X-ray shows no acute finding. Viral testing and strep testing is negative. Likely viral URI. Patient be discharged home with albuterol MDI. Reviewed worrisome signs and symptoms of when to return to the emergency room. Comfortable plan for discharge home. Medications Administered Discontinued Medications Generic Name Dose Route Start Last Admin Trade Name Freq PRN Reason Stop Dose Admin Albuterol Sulfate 2 puff 06/07/24 11:18 06/07/24 11:28 Albuterol Sulfate 90 Mcg 8 Gm Inhaler INHALE 06/07/24 11:19 2 puff ONCE ONE Administration Medical Decision Making Medical Decision Making [facility] Narrative: 38-year-old female with a history of anxiety, depression, schizophrenia, diabetes, asthma presents the ER with complaints of 5 days of cough, congestion, body aches and fever with max temp of 102 degrees. Patient was she reports she went to her primary care doctor and had negative COVID and flu testing and was diagnosed with a viral illness and sent home with supportive measures. Continues to have symptoms. No recent travel. No sick contacts. No chest pain, shortness of breath, leg swelling, leg pain, vomiting, diarrhea, neck pain, neck stiffness, skin rash Slight expiratory wheezing. Exam otherwise benign. Will obtain viral testing, strep testing, chest X-ray Will give albuterol MDI Differential Diagnosis Differential Diagnoses: The differential diagnosis associated with the presentation includes Viral since, influenza Low suspicion for PE-perc 0 Admission/Observation Consideration of admission/observation: Escalation of care including admission/observation considered Viral URI with no hypoxia or tachypnea requiring supplemental oxygen and or admission Lab Data MDM Lab Attestation statement: I reviewed the patient's lab results. Labs: Lab Results 06/07/24 Range/Units 11:05 Influenza Type A (PCR) NEGATIVE (Negative) Influenza Type B (PCR) NEGATIVE (Negative) RSV RNA Qual (PCR) NEGATIVE (Negative) SARS-CoV-2 RNA (RT-PCR) NEGATIVE (Negative) S. pyogenes GrpA ANNEMARIE Negative (Negative) Independent Interpretation I performed an independent interpretation of an: Plain X-Ray Interpretation: I independently reviewed the x-ray and agree with the rad report Radiology Impression Discussion of test interpretation with radiology: I have reviewed the radiologist's reading. Radiologist Impression: [address] [id number] XRay Report Signed Patient: Shwetha Lawrence MR#: [id number] : 1985 Acct:[id number] Age/Sex: 38 / F ADM Date: 06/07/24 Loc: .ED Attending Dr: Ordering Physician: Robina Sawant NP Date of Service: 06/07/24 Procedure(s): XR chest 2V Accession Number(s): [id number] cc: Lu Oreilly MD; Robina Sawant NP~ EXAMINATION: XR CHEST CLINICAL INFORMATION: Reason for Exam cough, wheezing COMPARISON: Chest radiograph 06/19/2021 TECHNIQUE: 2 views of the chest FINDINGS: Lines and tubes: None. Clear lungs. No pleural effusion. No pneumothorax. Normal cardiomediastinal silhouette. XR/XR chest 2V IMPRESSION: * Clear lungs. Independent Historian Clinical information obtained from an independent historian. History obtained from or confirmed by: EMS Discharge Plan Discharge Clinical Impression: Upper respiratory infection Patient Disposition: Home, Self-Care Instructions: Upper Respiratory Infection (ED) Additional Instructions: Testing for flu, covid, rsv and strep testing are negative Chest x-ray shows no acute finding Use your albuterol 2 puffs every 4 hours as needed for cough or wheeze Prescriptions: No Action cholecalciferol (vitamin D3) 25 mcg (1,000 unit) capsule 25 mcg PO DAILY Qty: 30 6RF bismuth subsalicylate 262 mg tablet,chewable 2 tab PO QID 14 Days Qty: 112 0RF omeprazole 20 mg capsule,delayed release(DR/EC) 20 mg PO BID 14 Days Qty: 28 0RF tetracycline 500 mg capsule 500 mg PO QID 14 Days Qty: 56 0RF Rx Instructions: take 1 hour after Bismuth metronidazole 500 mg tablet 500 mg PO TID 14 Days Qty: 42 0RF epinephrine [EpiPen] 0.3 mg/0.3 mL auto-injector 0.3 mg IM Q15M PRN (Reason: allergic reaction) Qty: 2 0RF Rx Instructions: not to exceed 6 doses per episode dicyclomine 20 mg tablet 20 mg PO TID PRN (Reason: abdominal pain) Qty: 20 0RF cyclobenzaprine 10 mg tablet 10 mg PO TID PRN (Reason: muscle spasm) Qty: 20 0RF lidocaine 5 % adhesive patch,medicated 1 patch topical DAILY Qty: 30 0RF Rx Instructions: leave on most painful area for up to 12 hrs ondansetron 4 mg tablet,disintegrating 4 mg PO DAILY PRN (Reason: nausea and vomiting) 5 Days Qty: 10 0RF insulin glargine 100 unit/mL cartridge 50 unit subcut QPM insulin aspart U-100 [Novolog FlexPen U-100 Insulin] 100 unit/mL (3 mL) insulin pen 20 unit subcut BID bupropion HCl [Wellbutrin XL] 150 mg tablet extended release 24 hr 150 mg PO QAM quetiapine [Seroquel] 200 mg tablet 200 mg PO BEDTIME quetiapine [Seroquel] 50 mg tablet 50 mg PO DAILY metformin 1,000 mg tablet 1,000 mg PO DAILY albuterol sulfate 90 mcg/actuation HFA aerosol inhaler 2 puff inhalation Q6H PRN glipizide-metformin 2.5-250 mg tablet 1 tab PO DAILY Referrals: Lu Oreilly MD [Primary Care Provider] - 1 week Print Language: Nigerien
[2024-06-07] MEDS: Albuterol Sulfate 90 MCG 8 GM INHALER 2 PUFF INHALE (11:28)
[2024-06-07 12:01] LABS: Influenza A PCR NEGATIVE (Negative); Influenza B PCR NEGATIVE (Negative); Resp Syncy Virus RNA Qual PCR NEGATIVE (Negative); SARS COV2 PCR INHOUSE NEGATIVE (Negative)
[2024-06-07 12:32] LABS: IDNOW Serial# 08D9AD1C; Strep A Nucleic Acid Negative (Negative)
[2024-06-07 12:49] VITALS: BP 129/77; PULSE 86; RESP 18; TEMP 36.4; O2SAT 98
== END 2024-06-07 12:49 | disposition home or self-care (01) ==
PROVIDERS: Nurse Practitioner Family; Emergency Provider Emergency Medicine; PCP Family Medicine
DX: J06.9 Acute upper respiratory infection, unspecified (principal); R05.9 Cough, unspecified; R50.9 Fever, unspecified; Z03.818 Encounter for observation for suspected exposure to other biological agents ruled out
CPT/HCPCS: 0241U; 71046; 87651; 99282; 99283

== ENCOUNTER 2024-08-10 17:45 | Outpatient (REF) | payer MEDICAID, SELFPAY ==
[2024-08-11 05:00] LABS: CT PCR NOT DETECTED (Not Detect.); NG PCR NOT DETECTED (Not Detect.)
[2024-08-11 10:34] LABS: Bacterial Vaginosis PCR POSITIVE (Negative); Candida Group PCR DETECTED (Not Detect); Candida glab krusei PCR DETECTED (Not Detect); Trichomonas vaginalis PCR NOT DETECTED (Not Detect)
== END 2024-08-10 17:46 | disposition home or self-care (01) ==
LOC: HO.HHCLNP 17:45
PROVIDERS: Visit Provider Nurse Practitioner Primary Care
DX: R30.0 Dysuria (principal)
CPT/HCPCS: 0352U; 87086; 87491; 87591

== ENCOUNTER 2024-09-17 15:09 | Outpatient (REF) | payer MEDICAID, SELFPAY ==
[2024-09-17 16:33] LABS: Estimated Average Glucose 286 mg/dL; Hemoglobin A1C 380.9202 umol/L; Hemoglobin A1c % 11.6 % (<6.0); Total Hemoglobin (HGBA1C) 3673.2827 umol/L
[2024-09-17 17:17] LABS: TSH reflex Free T4 1.42 uIU/mL (0.32-4.0)
[2024-09-17 17:28] LABS: Alanine Aminotransferase 37 U/L (0-31); Albumin Level 3.7 g/dL (3.5-5.0); Alkaline Phosphatase 128 U/L (39-117); Anion Gap 14 (12-20); Aspartate Amino Transferase 27 U/L (5-31); Bilirubin Total 0.3 mg/dL (0.0-1.0); Blood Urea Nitrogen 10 mg/dL (9-16); Calcium 9.1 mg/dL (8.4-10.2); Carbon Dioxide 25 mmol/L (22-29); Chloride 101 mmol/L (96-108); Cholesterol 208 mg/dL (<200); Estimated Glomerular Filt Rate > 60; Glucose Random 462 mg/dL (60-115); HDL Cholesterol 48 mg/dL (>40); LDL Cholesterol Calculated 110 mg/dL (<100); Potassium 4.1 mmol/L (3.3-5.1); Sodium 136 mmol/L (135-145); Total Protein 7.5 g/dL (6.5-8.0); Triglycerides 250 mg/dL (<150)
[2024-09-17 19:43] LABS: Reflex LDLD? No
== END 2024-09-17 15:10 | disposition home or self-care (01) ==
LOC: HO.HHCL 15:09
PROVIDERS: Visit Provider Family Medicine
DX: I10 Essential (primary) hypertension (principal); E11.65 Type 2 diabetes mellitus with hyperglycemia; Z79.4 Long term (current) use of insulin; K76.0 Fatty (change of) liver, not elsewhere classified; E78.5 Hyperlipidemia, unspecified
CPT/HCPCS: 36415; 80053; 80061; 83036; 84443

== ENCOUNTER 2025-06-28 18:01 | Outpatient (REF) | payer MEDICAID, SELFPAY ==
[2025-06-28 18:45] LABS: Microalbum/Creatinine Ratio Ur 17.0 ug/mg cr (<30)
== END 2025-06-28 18:02 | disposition home or self-care (01) ==
LOC: HO.HHCLNP 18:01
PROVIDERS: Visit Provider Family Medicine
DX: E11.65 Type 2 diabetes mellitus with hyperglycemia (principal); Z79.4 Long term (current) use of insulin
CPT/HCPCS: 82043; 82570; 87086

== ENCOUNTER 2025-08-03 14:39 | Emergency (ER) | payer MEDICAID, SELFPAY ==
--- NOTE | ~2025-08-03 | US_ITS ---
CLINICAL HISTORY: RUQ; Pain; Tenderness; N V US abdomen limited Comparison: CT/REG/[place]/SR - CT ABDOMEN PELVIS WO IV CON - 03/20/24 23:46 EDT US/SR - US ABDOMEN COMPLETE WITH LIVER ELASTOGRAPHY - 03/17/24 08:50 EDT Findings: The visualized pancreas is normal. The aorta and inferior vena cava are normal caliber. The liver is homogeneous hyperechoic and enlarged, 21 cm. There is no intrahepatic bile duct dilatation. The common duct is 5 mm in diameter. The gallbladder is normal. There is no sonographic Person sign. The main portal vein is antegrade. The right kidney is 10.1 cm in length. No ascites. IMPRESSION: Hepatic steatosis; nonalcoholic steatohepatitis versus viral hepatitis. Hepatomegaly, 21 cm. No cholelithiasis identified. This document has been electronically signed by: Andrei Roberts MD on 08/03/2025 21:46:27
--- NOTE | ~2025-08-03 | CT_ITS ---
CLINICAL HISTORY: Abd Pain; Tenderness; RUQ RLQ; N V CT abdomen and pelvis with contrast Comparison: CT/REG/AK/SR - CT ABDOMEN PELVIS WO IV CON - 03/20/24 23:46 EDT Findings: The lung bases are clear. Hepatic steatosis. Hepatomegaly, 20.1 cm. No bowel obstruction, pneumoperitoneum, or pneumatosis. The left and right kidney demonstrate normal corticomedullary enhancement. The spleen homogeneous in attenuation. The appendix is within normal limits. The uterus is within normal limits. The bones are intact. IMPRESSION: 1. No acute intraabdominal or pelvic pathology. 2. Hepatic steatosis; nonalcoholic steatohepatitis versus viral hepatitis. This document has been electronically signed by: Andrei Roberts MD on 08/03/2025 23:49:25
--- OUTSIDE RECORDS SUMMARY | 2025-08-03 13:40 | XMS_ITS | Encounter Summary ---
Author Organization [employer] Address [address] [place] [address] Care Team Providers Care Cigar Bander Name Role Phone Lu Oreilly MD Primary Care Provider [phone] Carey Zambrano PharmD Unavailable [phone] Encounter Details Date Type Department Care Team (Late st Contact Info) Description 08/03/2025 1:40 PM EDT Office Visit [facility] [address] [place] [address] Kathryn Schulz MD [address] [place] [address] Right sided abdominal pain (Primary Dx); Cough, unspecified type Social History Tobacco Use Types Packs/Day Years Used Date Smoking Tobacco: Never Passive Smoke Exposure: Never Smokeless Tobacco: Never Alcohol Use Standard Drinks/Week Comments Never 0 (1 standard drink = 0.6 oz pur e alcohol) Alcohol Answer Date Recorded Frequency of Alcohol Consumption Not on file 06/09/2024 Average Number of Drinks Not on file 024 Frequency of Binge Drinking Not on file 05/13 Score 0 06/09/2024 Depression Answer Date Recorded Patient Health Questionnaire-9 Score 5 03/08/2025 Patient Health Questionnaire-9 Score 5 03/08/2025 Last PHQ-9: Questionnaire Data Not on file 0 03/08/2025 Housing Stability Answer Date Recorded What is your housing situation today? I have tristan donavon 12/08/[address] you li ve. Do you have problems with any of the following? None of the above 12/08/2024 Food Insecurity Answer Date Recorded Within the past 12 months, y ou worried that your food would run out before you got money to buy more: Never True 12/08/2024 Within the past 12 months,th e food you bought just didn't last and you didn't have enough money to get more: Never True Transportation Answer Date Recorded In the past 12 months, has l ack of transportation kept you from medical appts, meetings, work or from getting things needed for daily living? No 12/08/2024 Utilities Answer Date Recorded In the past 12 months, has t he electric, gas, oil or water company threatened to shut off services in your home? No 12/08/2024 Depression Answer Date Recorded Patient Health Questionnaire-2 Score 1 03/08/2025 Internet Access Answer Date Recorded Internet Access Q1 Yes 12/08/2024 Internet Access Q2 Not on file 12/08/2024 Comments No Sex and Gender Information Value Date Recorded Sex Assigned at Female 09/10/2022 10:17 AM EDT Legal Sex Female 10:17 AM EDT Gender Identity Female 09/10/2022 10:17 AM EDT Sexual Orientation Straight 09/10/2022 10 :17 AM EDT documented as of this encounter Last Filed Vital Signs Vital Sign Reading Time Taken Comments Blood Pressure 125/78 08/03/2025 1:56 PM EDT Pulse 117 08/03/2025 1:56 PM EDT Temperature 37.4 C (99.4 F) 08/03/2025 1:56 PM EDT Respiratory Rate 24 08/03/2025 1:56 PM EDT Oxygen Saturation 96% 08/03/2025 1:56 PM EDT Inhaled Oxygen Concentration - - Weight 114 kg (251 lb 3.2 oz) 08/03/2025 1:56 PM EDT Height 154.9 cm (5' 1 ) 08/03/2025 1:56 PM EDT Body Mass Index 47.46 08/03/2025 1:56 PM EDT documented in this encounter Progress Notes * Kathryn Pablo MD - 08/03/2025 1:40 PM EDT SUBJECTIVE: Shwetha Barreto is a 39 y.o. year old female who presents for acute visit . Acute Concerns: Patient reports 2 days if having acute abdominal pain on her right side, nausea, vomiting and diarrhea, reports no blood in vomit or stools, denies black stools, reports body aches and headaches, shetells me she has not being able to eat or drink anything, denies sick contacts or recent travels Social History Social History Narrative Not on file Problem List[1] Asthma Mood disorder (CMS/HCC) Obesity Obstructive sleep apnea syndrome PCOS (polycystic ovarian syndrome) Type 2 diabetes mellitus (CMS/HCC) Infertility, female Abnormal uterine bleeding (AUB) Other fatigue Essential hypertension Metabolic dysfunction-associated steatotic liver disease (MASLD) Dyslipidemia Chronic back pain Acute pain of left shoulder Family History[2] Review of Systems Constitutional: Positive for activity change and fatigue. HENT: Positive for congestion. Negative for dental problem, drooling, ear discharge, ear pain, facial swelling, hearing loss, mouth sores, nosebleeds, postnasal drip, rhinorrhea, sinus pressure, sinus pain, sneezing, sore throat, tinnitus, trouble swallowing and voice change. Respiratory: Negative. Cardiovascular: Negative. Gastrointestinal: Positive for abdominal distention, abdominal pain, diarrhea, nausea and vomiting.Negative for anal bleeding, blood in stool, constipation and rectal pain. OBJECTIVE: Vitals: 08/03/25 1356 BP: 125/78 BP Location: Left arm Patient Position: Sitting BP Cuff Size: Large adult Pulse: (!) 117 Resp: 24 Temp: 99.4 ??F (37.4 ??C) TempSrc: Oral SpO2: 96% Weight: 251 lb 3.2 oz (114 kg) Height: 5' 1 (1.549 m) Physical Exam Constitutional: Appearance: She is obese. Cardiovascular: Rate and Rhythm: Normal rate and regular rhythm. Pulmonary: Effort: Pulmonary effort is normal. Breath sounds: Normal breath sounds. Abdominal: Tenderness: There is abdominal tenderness in the right upper quadrant and right lower quadrant. There is guarding. Positive signs include Person's sign and McBurney's sign. Neurological: Mental Status: She is alert. Follow Up: No follow-ups on file. Medications Ordered Prior to Encounter[3] Problem List Items Addressed This Visit Right sided abdominal pain - Primary Patent with acute abdominal pain I can not r/o appendicitis/ cholecystitis, patient also dehydratedHR 117 unable to keep food or water I presented case to [facility] emergency room to Candice MENDOZA Other Visit Diagnoses Cough, unspecified type Relevant Orders POCT Rapid Covid-19 BinaxNOW (Completed) POCT Rapid Influenza A CAUSEY ID NOW (Completed) POCT Rapid Influenza B CAUSEY ID NOW (Completed) POCT Rapid Strep A CAUSEY ID NOW (Completed) [1] Patient Active Problem List Diagnosis Asthma Mood disorder (CMS/HCC) Obesity Obstructive sleep apnea syndrome PCOS (polycystic ovarian syndrome) Type 2 diabetes mellitus (CMS/HCC) Infertility, female Abnormal uterine bleeding (AUB) Other fatigue Essential hypertension Metabolic dysfunction-associated steatotic liver disease (MASLD) Dyslipidemia Chronic back pain Acute pain of left shoulder Right sided abdominal pain [2] Family History Problem Relation Name Age of Onset Diabetes Mother Asthma Mother Other (psoriatic arthritis) Brother Hypertension Brother Asthma Brother Intellectual Disability Brother Sleep apnea Brother [3] Current Outpatient Medications on File Prior to Visit Medication Sig Dispense Refill acetaminophen (Tylenol 8 Hour) 650 MG ER tablet TAKE 1 TABLET BY MOUTH EVERY 8 HOURS NEEDED FOR MILD OR MODERATE PAIN, DO NOT BREAK, CRUSH, DISSOLVE OR CHEW 30 tablet 1 albuterol (2.5 MG/3ML) 0.083% nebulizer solution INHALE 1 AMPULE USING A NEBULIZER EVERY 4 HOURS ASNEEDED SHORTNESS OF BREATH OR FOR WHEEZING 90 mL 1 Alcohol Swabs (Alcohol Prep) pads Check blood sugar 3 times daily and as needed. Use as directed 200 each 5 Blood Glucose Monitoring Suppl (FreeStyle Lite) w/Device kit 1 Dose 4 times daily. 1 kit 0 Blood Pressure Monitor kit Check blood glucose three times daily before meal and as needed 1 kit 0 buPROPion XL (Wellbutrin XL) 150 MG 24 hr tablet Take 150 mg by mouth Once per day. Do not crush, chew, or split. clotrimazole (Lotrimin) 1 % cream Apply externally as needed twice daily for vulvar itching 30 g 0 Continuous Glucose Direct Selling Counselor (FreeStyle Karishma 3 [place]) device 1 each Once per day. Use as directed for CGM 1 each 0 Continuous Glucose Sensor (FreeStyle Karishma 3 Plus Sensor) misc 1 each every 15 days. Apply 1 every 15 days as directed for CGM 2 each 11 Diclofenac Sodium 1 % gel Apply to affected area once or twice daily 150 g 0 dicyclomine (Bentyl) 20 MG tablet TAKE 1 TABLET BY MOUTH THREE TIMES DAILY NEEDED FOR ABDOMINAL PAIN 90 tablet 2 EPINEPHrine (EpiPen 2-Ron) 0.3 MG/0.3ML injection syringe inject 0.3 milliliter by intramuscular route once as needed for anaphylaxis 1 each 0 fluticasone (Flonase Allergy Relief) 50 MCG/ACT nasal spray spray 1 - 2 spray by intranasal route every day in each nostril as needed 16 g 3 folic acid (Folvite) 800 MCG tablet TAKE 1 TABLET BY MOUTH EVERY DAY 90 tablet 1 FreeStyle lancets 1 each by Other route 4 times daily. 100 each 11 FREESTYLE LITE test strip Check blood glucose 4 times daily 100 each 11 glucose blood (FreeStyle Precision Evans Test) test strip Use to test blood sugar three times daily 100 each 12 hydrocortisone 1 % cream Apply topically 2 times daily. 14 g 0 ibuprofen 800 MG tablet TAKE 1 TABLET BY MOUTH EVERY 8 HOURS NEEDED FOR MODERATE PAIN FOR UP TO 10 DAYS 30 tablet 0 insulin glargine (Lantus SoloStar) 100 UNIT/ML pen Inject 36 Units under the skin Once daily. 15 mL3 insulin lispro (HumaLOG KWIKPEN) 100 UNIT/ML injection INJECT 18 TO 20 UNITS SUBCUTANEOUSLY THREE TIMES DAILY WITH MEALS 15 mL 11 insulin pen needle (Pentips) 32G x 4 mm [facility] Use as instructed 100 each 11 loratadine (Claritin) 10 MG tablet Take 1 tablet (10 mg) by mouth Once per day. 90 tablet 3 metFORMIN (Glucophage) 1000 MG tablet TAKE 1 TABLET BY MOUTH TWICE DAILY EVERY MORNING AND EVENING WITH FOOD 180 tablet 1 methocarbamol (Robaxin) 750 MG tablet Take 1 tablet (750 mg) by mouth if needed in the morning, at noon, in the evening, and at bedtime for muscle spasms for up to 7 days. 28 tablet 0 Nebulizer [facility] Reusable nebulizer kit Tubing and mask, use for nebulizer Nebulizers (Comp A-I-R Nebulizer) [facility] Comp-air nebulizer compressor Use for nebulizer treatment NIFEdipine XL (Procardia XL) 30 MG 24 hr tablet TAKE 1 TABLET BY MOUTH ONCE DAILY IN THE MORNING DONOT BREAK, CRUSH, DISSOLVE OR CHEW 90 tablet 1 olmesartan (Benicar) 5 MG tablet Take 1 tablet (5 mg) by mouth Once per day. 90 tablet 3 omeprazole (PriLOSEC) [address] capsule Take 1 capsule by mouth twice a day as needed. Take before meal 180 capsule 3 ondansetron (Zofran) 4 MG tablet TAKE 1 TO 2 TABLETS BY MOUTH EVERY 8 HOURS NEEDED FOR NAUSEA 30tablet 1 Vit-Fe Fumarate-FA ( Low Iron) 27-0.8 MG tablet take 1 tablet by oral route every day QUEtiapine (SEROquel) 200 MG tablet Take 200 mg by mouth at bedtime. QUEtiapine (SEROquel) 50 MG tablet Take 50 mg by mouth Once per day. Tirzepatide (Mounjaro) 5 MG/0.5ML solution auto-injector Inject 5 mg under the skin every 7 (seven)days. 2 mL 1 Ventolin HFA 108 (90 Base) MCG/ACT inhaler INHALE 2 PUFFS BY MOUTH EVERY 4 TO 6 HOURS NEEDED 18 g 1 Vitamin D High Potency 25 MCG (1000 UT) capsule TAKE 1 CAPSULE BY MOUTH EVERY DAY No current facility-administered medications on file prior to visit. documented in this encounter Miscellaneous Notes * Assessment & Plan Note - Kathryn Pablo MD - 08/03/2025 2:33 PM EDT Associated Problem(s): Right sided abdominal pain Patent with acute abdominal pain I can not r/o appendicitis/ cholecystitis, patient also dehydratedHR 117 unable to keep food or water I presented case to [facility] emergency room to Candice MENDOZA documented in this encounter Plan of Treatment Upcoming Encounters Date Type Department Care Team (Late st Contact Info) Description 08/09/2025 1:00 PM EDT Medication Management [facility] [address] [place] [id number] Carey Zambrano, PharmD [address] [place] [address] 08/30/2025 1:45 PM EDT Office Visit [facility] [address] [place] [address] Lu Oreilly MD [address] [place] [address] documented as of this encounter Procedures Procedure Name Priority Date/Time Associated Diagnosis Comments POC CAUSEY ID NOW STREP A Routine 08/03/2025 2:16 PM EDT Cough, unspecified type POCT INFLUENZA B (ID NOW RAPID MOLECULAR) Routine 08/03/2025 2:07 PM EDT Cough, unspecified type POCT INFLUENZA A (ID NOW RAPID MOLECULAR) Routine 08/03/2025 2:06 PM EDT Cough, unspecified type POCT RAPID COVID ANTIGEN Routine 08/03/2025 2:02 PM EDT Cough, unspecified type documented in this encounter Results * POCT Rapid Strep A CAUSEY ID NOW (08/03/2025 2:16 PM EDT) Rapid Strep A Screen Negative Negative, None Detected QC Media Lot # [id number] Lot# Expiration Date Swab 08/03/2025 2:16 PM EDT us Kathryn Pablo MD POINT OF CARE TEST EN TER/EDIT ORDERABLES Final Result * POCT Rapid Influenza B CAUSEY ID NOW (08/03/2025 2:07 PM EDT) Influenza B Negative Negative, Indeterminate [facility] QC Media Lot # [id number] [facility] Lot# Expiration Date 42 [facility] Swab 08/03/2025 2:07 PM EDT us Kathryn Pablo MD POINT OF CARE TEST EN TER/EDIT ORDERABLES Final Result [facility] [address] [place] [address] [phone] * POCT Rapid Influenza A CAUSEY ID NOW (08/03/2025 2:06 PM EDT) Influenza A Negative Negative, Indeterminate [facility] QC Media Lot # [id number] [facility] Lot# Expiration Date [address] [facility] Swab 08/03/2025 2:06 PM EDT Kathryn Pablo MD POINT OF CARE TEST EN TER/EDIT ORDERABLES Final Result [facility] [address] [place] [address] [phone] * POCT Rapid Covid-19 BinaxNOW (08/03/2025 2:02 PM EDT) [facility] Rapid COVID Ag Negative QC Media Lot # [id number] Lot# Expiration Date 8,326 Swab 08/03/2025 2:02 PM EDT Kathryn Pablo MD POINT OF CARE TEST EN TER/EDIT ORDERABLES Final Result documented in this encounter Visit Diagnoses Diagnosis Right sided abdominal pain- Primary Abdominal pain, unspecified site Cough, unspecified type documented in this encounter Additional Health Concerns Assessment Noted Time PHQ-9 Depression Total Score: 5 03/08/20 25 3:08 PM EDT documented as of this encounter Care Teams Cigar Bander Relationship Specialty Start Date End Date Lu Oreilly MD [address] [place] [address] PCP - General Family Medicine 10/23/12 Carey Zambrano PharmD [address] [place] [phone] Pharmacist Pharmacy 06/28/25 documented as of this encounter
[2025-08-03 14:41] VITALS: BP 125/65; PULSE 110; RESP 18; TEMP 37.1; O2SAT 98; BMI 47.4
--- NOTE | 2025-08-03 14:44 | ED_ITS ---
HPI - General Adult General Chief complaint: Abdominal Pain Stated complaint: Abd pain, vomiting Time Seen by Provider: 08/03/25 20:08 Source: patient Mode of arrival: ambulatory Limitations: no limitations History of Present Illness ED Provider: Miguel MENDOZA HPI narrative: Patient is a 39-year-old female presenting to the ED for evaluation of right- sided abdominal pain with associated nausea, vomiting, and diarrhea which all began yesterday around 22:00 after eating chicken noodle soup. Patient reports she was feeling unwell with generalized fatigue, malaise, and myalgias with subjective fever for 2 days prior to onset of pain yesterday evening. The patient denies associated urinary symptoms, hematochezia, melena, hematemesis, cough, shortness of breath, recent sick contacts, or recent trauma. The patient denies any surgical abdominal history. Related Data Home Medications ?Medication ?Instructions ?Recorded ?Confirmed insulin aspart U-100 100 unit/mL 20 unit subcut BID 04/04/22 (3 mL) subcutaneous pen (Novolog FlexPen U-100 Insulin aspart) insulin glargine 100 unit/mL 50 unit subcut QPM 04/04/22 subcutaneous cartridge albuterol sulfate 90 mcg/actuation 2 puff inhalation Q 6H PRN 06/14/21 04/04/22 aerosol inhaler bupropion HCl 150 mg 24 hr tablet, 150 mg PO QAM 06/1404/04/22 extended release (Wellbutrin XL) glipizide 2.5 mg-metformin 250 mg 1 tab PO DAILY 06/1404/04/22 tablet metformin 1,000 mg tablet 1,000 mg PO DAILY 06/14/21 0 04/04/22 quetiapine 200 mg tablet (Seroquel) 200 mg PO BEDTIME 06/14/21 04/04/22 quetiapine 50 mg tablet (Seroquel) 50 mg PO DAILY 03/0104/04/22 Previous Rx's ?Medication ?Instructions ?Recorded epinephrine 0.3 mg/0.3 mL 0.3 mg (0.3 mL) IM Q15M PRN 03/24/21 injection, auto-injector (EpiPen) allergic reaction #2 ea cholecalciferol (vitamin D3) 25 25 mcg PO DAILY #30 ca ps 07/07/21 mcg (1,000 unit) capsule bismuth subsalicylate 262 mg 2 tab PO QID 14 days #112 tabs 04/13/22 chewable tablet metronidazole 500 mg tablet 500 mg PO TID 14 days #42 tabs 04/13/22 omeprazole 20 mg capsule,delayed 20 mg PO BID 14 days #28 caps 04/13/22 release tetracycline 500 mg capsule 500 mg PO QID 14 days #56 caps 04/13/22 ondansetron 4 mg disintegrating 4 mg PO DAILY PRN naus ea and 08/10/23 tablet vomiting 5 days #10 tabs dicyclomine 20 mg tablet 20 mg PO TID PRN abdominal pain 12/06/23 #20 tabs cyclobenzaprine 10 mg tablet 10 mg PO TID PRN muscle s pasm #20 03/21/24 tabs lidocaine 5 % topical patch 1 patch topical DAILY #30 ea 03/21/24 Allergies Allergy/AdvReac Type Severity Reaction Status Date / Time haloperidol (From Haldol) Allergy Unknown Numbness Verified 08/03/25 14:43 sertraline (Zoloft) Allergy Unknown UNKNOWN Verified 08/03/25 14:43 Review of Systems 2 Review of Systems: Yes all other systems are reviewed and are negative [facility] Past Medical History Medical History Bipolar 1 disorder Depression GERD (gastroesophageal reflux disease) Sleep apnea History of anxiety History of asthma Hx of type 2 diabetes mellitus Hx of major depression Surgical History No history of previous surgery Family History Family History Mother Asthma No kidney function Father Diabetes Brother Tumor Brother Asthma Brother No problems noted. Sister No problems noted. Social History Social History Alcohol intake: never Patient Tobacco Use Status: Never used Tobacco Advance Directives: No Advance Directives Information Provided: No Do you have a plan to hurt others: No Plan Physical Exam ED Vital Signs: Vital Signs - 24 hr 08/03/25 14:41 08/03/25 19:49 08/03/25 22:57 Temperature 98.8 F 99.1 F 98.7 F Pulse Rate 110 H 106 H 92 Respiratory Rate 18 19 14 Blood Pressure 125/65 128/79 103/62 Pulse Oximetry 98 100 96 Oxygen Delivery Method Room Air Room Air BMI result Body Mass Index 47.4 CONSTITUTIONAL: The patient appears uncomfortable but otherwise non-toxic, well nourished and in no acute distress. Vital signs as documented. HEAD: Atraumatic, normocephalic. EYES: EOMs grossly intact, pupils equal, conjunctiva clear, no exudate. ENT: Nares patent, no discharge. Airway patent, no audible stridor, visible mucosa is pink and moist without noted lesions. NECK: Trachea is midline, no obvious masses or gross abnormalities. CHEST: Symmetric movement, normal appearance. LUNGS: LS present and CTAB, no w/r/r. Non-labored work of breathing. CARDIAC: Regular Rhythm, S1/S2 appreciated, no murmurs, rubs or gallops. ABDOMEN: Abdomen soft x4 quadrants, positive tenderness to palpation of the upper and lower right quadrants, negative Rovsing's, negative Person's, negative rebound, no palpable masses or organomegaly. CVAT negative bilaterally. : Deferred. EXTREMITIES: Normal tone, moves all extremities spontaneously without reported pain. No obvious acute injury or deformity noted. NEURO: Alert and oriented x3, CN II-XII appear grossly intact. Cerebellar Functioning grossly intact. No obvious sensory or motor deficits. Speech clear and appropriate. PSYCH: normal affect, appropriate eye contact, fluid speech, with appropriate response to questioning. No reported suicidality or homicidality. SKIN: Warm, dry, color appropriate, normal turgor. No rashes noted. Course Course Course Narrative: This is a Rapid Medical Examination (RME) performed by Eliot Mckenzie PA-C in triage. Full HPI, ROS, assessment and treatment plan per primary provider in the Main ED. Hx: 39 yo F here from [facility] for eval of right sided abd pain, N/V/D x2 days. unable to tolerate po intake. noted to be tachycardic at [facility] - sent here for further eval. no hx abd surgeries. PE/vitals: ttp of entire right abdomen. no guarding. no rebound. exam limited d/t body habitus in triage. Plan: labs, UA Medications Administered Discontinued Medications Generic Name Dose Route Start Last Admin Trade Name Xavi PRN Reason Stop Dose Admin Sodium Chloride 1,000 mls @ 999 mls/hr 08/03/25 20:45 08/03/25 21:33 Ns IV 08/03/25 21:45 999 mls/hr .Q1H1M SASHA Administration Iohexol 85 ml 08/03/25 23:17 08/03/25 23:18 Iohexol 350 Mg/Ml 100 Ml Infus..Btl IV 08/03/25 23:18 85 ml ONCE ONE Administration Ketorolac Tromethamine 15 mg 08/03/25 20:40 08/03/25 21:31 Ketorolac Tromethamine 15 Mg/Ml Vial IVPUSH 08/03/25 20:41 15 mg ONCE ONE Administration Ondansetron HCl 4 mg 08/03/25 20:40 08/03/25 21:31 Ondansetron Hcl 4 Mg/2 Ml Vial IVPUSH 08/03/25 20:41 4 mg ONCE ONE Administration Medical Decision Making Medical Decision Making MDM Narrative: 8:47 PM 08/03/2025 (Eliot MENDOZA): Patient is a 39-year-old female presenting to the ED for evaluation of generalized malaise, fatigue, subjective fever, and myalgias which began 48-72 hours ago, followed by onset of right-sided upper and lower abdominal pain with associated nausea, vomiting, and diarrhea yesterday evening around 22:00 after eating chicken noodle soup made at home. The patient in the ED appears uncomfortable but in no acute distress, nontoxic, abdomen is tender in the upper and lower right quadrant, negative rebound, negative Rovsing's, negative Person's. No leukocytosis, anemia, electrolyte abnormality, or IZABELA. The patient is a diabetic and glucose is elevated at 377. The patient's LFTs are mildly elevated with ALT 37 and alkaline phosphatase 136. Patient will be sent for right upper quadrant ultrasound to rule out cholecystic pathology. Pending unremarkable right upper quadrant ultrasound patient will likely require CT imaging to evaluate for less likely acute appendicitis. We will treat with IV fluids, Toradol, and obtain viral swabs given report of myalgias. 12:07 AM 08/04/2025 (Eliot MENDOZA): The patient's ultrasound resulted and shows no cholecystic pathology, there was evidence of hepatic steatosis, concerning for possible nonalcoholic hepatic steatosis versus viral hepatitis. Patient was sent for CT imaging. CT has resulted and shows no acute intra-abdominal pathology, hepatic steatosis is redemonstrated. A hepatitis profile was added however will not result this evening. Patient is likely suffering from viral gastroenteritis, patient will be discharged with supportive care and instructions to follow up with PCP regarding results of hepatitis profile. Lab Data MDM Lab Attestation statement: I reviewed the patient's lab results. 08/03/25 15:04 08/03/25 15:04 Labs: Lab Results 08/03/25 08/03/25 08/03/25 Range/Units 15:04 15:55 21:25 WBC 8.7 (4.8-10.8) X10*3/uL RBC 4.87 (4.20-5.50) X10*6/uL Hgb 14.5 (12.0-16.0) g/dl Hct 42.4 (37.0-47.0) % MCV 87.1 (80.0-98.0) fL MCH 29.8 (27.0-33.0) pg MCHC 34.2 (31.0-35.0) g/dl RDW 13.3 (11.0-16.0) % Plt Count 231 (160-400) X10*3/uL MPV 10.2 (9.4-12.3) fL Immature Gran % (Auto) 0.2 (0.0-0.4) % Neut % (Auto) 62.7 (45-73) % Lymph % (Auto) 29.9 (20-40) % Young % (Auto) 6.1 (2-11) % Eos % (Auto) 0.8 (0-4) % Baso % (Auto) 0.3 (0-2) % Lymph # (Auto) 2.6 (1.2-4.9) X10*3/uL Young # (Auto) 0.5 (0.1-1.2) X10*3/uL Eos # (Auto) 0.1 (0.0-0.4) X10*3/uL Baso # (Auto) 0.0 (0.0-0.2) X10*3/uL Abs Immat Gran (auto) 0.02 (0.00-0.03) X10*3/uL Absolute Neuts (auto) 5.5 (2.0-8.3) x10*3/uL Absolute Nucleated RBC 0.000 (0.0-0.012) X10*3/uL Nucleated RBC % (auto) 0.0 (0.0-0.2) /100WBC Sodium 137 (135-145) mmol/L Potassium 3.8 (3.3-5.1) mmol/L Chloride 106 (96-108) mmol/L Carbon Dioxide 23 (22-29) mmol/L Anion Gap 12 (12-20) BUN 10 (9-16) mg/dL Creatinine 0.62 (0.5-1.4) mg/dL Estim Creat Clear Calc 142.7 Estimated GFR > 60 Random Glucose 327 H (60-115) mg/dL Calcium 9.1 (8.4-10.2) mg/dL Magnesium 1.6 (1.6-2.6) mg/dL Total Bilirubin 0.4 (0.0-1.0) mg/dL AST 23 (5-31) U/L ALT 37 H (0-31) U/L Alkaline Phosphatase 136 H (39-117) U/L C-Reactive Protein 5.57 H (< or = 0.50) mg/dL Total Protein 7.5 (6.5-8.0) g/dL Albumin 4.0 (3.5-5.0) g/dL Lipase 20 (8-78) U/L Beta HCG, Quant mIU/mL Urine Color Yellow Urine Appearance Clear Urine pH 5.5 (5.0-9.0) Ur Specific [place] >= 1.030 H (1.005-1.025) Urine Protein Trace (Neg-Trace) mg/dL Urine Glucose (UA) >=1000 H (Negative) mg/dL Urine Ketones Negative (Negative) mg/dL Urine Blood Negative (Negative) Urine Nitrite Negative (Negative) Ur Leukocyte Esterase Negative (Negative) Urine RBC 0-2 (0-2) /HPF Urine WBC 0-5 (0-5) /HPF Ur Squamous Epith Cells 6-10 (0-2) /HPF Urine Bacteria Trace (None Seen) Hyaline Casts 0-2 (0-2) /LPF Urine Yeast Present Ethyl Alcohol mg/dL COVID-19 (CRISTINA) Negative (Negative) COVID-19 Clin Com See Note Influenza Type A (ANNEMARIE) Negative (Negative) Influenza Type B (ANNEMARIE) Negative (Negative) Influenza A & B Note See Note 08/03/25 Range/Units 22:20 WBC (4.8-10.8) X10*3/uL RBC (4.20-5.50) X10*6/uL Hgb (12.0-16.0) g/dl Hct (37.0-47.0) % MCV (80.0-98.0) fL MCH (27.0-33.0) pg MCHC (31.0-35.0) g/dl RDW (11.0-16.0) % Plt Count (160-400) X10*3/uL MPV (9.4-12.3) fL Immature Gran % (Auto) (0.0-0.4) % Neut % (Auto) (45-73) % Lymph % (Auto) (20-40) % Young % (Auto) (2-11) % Eos % (Auto) (0-4) % Baso % (Auto) (0-2) % Lymph # (Auto) (1.2-4.9) X10*3/uL Young # (Auto) (0.1-1.2) X10*3/uL Eos # (Auto) (0.0-0.4) X10*3/uL Baso # (Auto) (0.0-0.2) X10*3/uL Abs Immat Gran (auto) (0.00-0.03) X10*3/uL Absolute Neuts (auto) (2.0-8.3) x10*3/uL Absolute Nucleated RBC (0.0-0.012) X10*3/uL Nucleated RBC % (auto) (0.0-0.2) /100WBC Sodium (135-145) mmol/L Potassium (3.3-5.1) mmol/L Chloride (96-108) mmol/L Carbon Dioxide (22-29) mmol/L Anion Gap (12-20) BUN (9-16) mg/dL Creatinine (0.5-1.4) mg/dL Estim Creat Clear Calc Estimated GFR Random Glucose (60-115) mg/dL Calcium (8.4-10.2) mg/dL Magnesium (1.6-2.6) mg/dL Total Bilirubin (0.0-1.0) mg/dL AST (5-31) U/L ALT (0-31) U/L Alkaline Phosphatase (39-117) U/L C-Reactive Protein (< or = 0.50) mg/dL Total Protein (6.5-8.0) g/dL Albumin (3.5-5.0) g/dL Lipase (8-78) U/L Beta HCG, Quant < 2 mIU/mL Urine Color Urine Appearance Urine pH (5.0-9.0) Ur Specific Phoenix (1.005-1.025) Urine Protein (Neg-Trace) mg/dL Urine Glucose (UA) (Negative) mg/dL Urine Ketones (Negative) mg/dL Urine Blood (Negative) Urine Nitrite (Negative) Ur Leukocyte Esterase (Negative) Urine RBC (0-2) /HPF Urine WBC (0-5) /HPF Ur Squamous Epith Cells (0-2) /HPF Urine Bacteria (None Seen) Hyaline Casts (0-2) /LPF Urine Yeast Ethyl Alcohol < 10 mg/dL COVID-19 (CRISTINA) (Negative) COVID-19 Clin Com Influenza Type A (ANNEMARIE) (Negative) Influenza Type B (ANNEMARIE) (Negative) Influenza A & B Note Radiology Impression Discussion of test interpretation with radiology: I have reviewed the radiologist's reading. Radiologist Impression: CLINICAL HISTORY: Abd Pain; Tenderness; RUQ RLQ; N V CT abdomen and pelvis with contrast Comparison: CT/REG/AZ/SR - CT ABDOMEN PELVIS WO IV CON - 03/20/24 23:46 EDT Findings: The lung bases are clear. Hepatic steatosis. Hepatomegaly, 20.1 cm. No bowel obstruction, pneumoperitoneum, or pneumatosis. The left and right kidney demonstrate normal corticomedullary enhancement. The spleen homogeneous in attenuation. The appendix is within normal limits. The uterus is within normal limits. The bones are intact. IMPRESSION: 1. No acute intraabdominal or pelvic pathology. 2. Hepatic steatosis; nonalcoholic steatohepatitis versus viral hepatitis. This document has been electronically signed by: Andrei Roberts MD on 08/03/2025 23:49:25 Comparison: CT/REG/AZ/SR - CT ABDOMEN PELVIS WO IV CON - 03/20/24 23:46 EDT Findings: The lung bases are clear. Hepatic steatosis. Hepatomegaly, 20.1 cm. No bowel obstruction, pneumoperitoneum, or pneumatosis. The left and right kidney demonstrate normal corticomedullary enhancement. The spleen homogeneous in attenuation. The appendix is within normal limits. The uterus is within normal limits. The bones are intact. IMPRESSION: 1. No acute intraabdominal or pelvic pathology. 2. Hepatic steatosis; nonalcoholic steatohepatitis versus viral hepatitis. This document has been electronically signed by: Andrei Roberts MD on 08/03/2025 23:49:25 Discharge Plan Discharge Clinical Impression: Gastroenteritis Patient Disposition: Home, Self-Care Instructions: Gastroenteritis (ED) Additional Instructions: Thank you for choosing [facility]'s Emergency Department for your care today. Thankfully your laboratory evaluation, viral swabs, ultrasound, CT, and exam today are reassuring. At this time there is no indication for admission to the hospital or continued ED observation, and it is safe to discharge you home. Your imaging showed some non-acute inflammation of your liver, but no evidence of gallstones, gallbladder infection, or other acute emergent process. Given your recent fatigue and body aches, it is most likely your symptoms are being caused by a viral infection of your body/gastrointestinal tract. You may take alternating (staggered) doses of ibuprofen 600mg and Tylenol 1000mg every 4 hours as needed for any additional pain or fever. Please stay well hydrated and get plenty of rest. Due to your liver inflammation noted on ultrasound and CT, we added a hepatitis profile which will not result this evening. Please follow up with your primary care physician for review of this lab test as well as re-evaluation of symptoms, additional management of your symptoms, and continued preventative care. If you do not have a primary care physician, please call the [facility] at [phone] to establish a new primary care physician. While waiting to establish your new primary care physician, you can call our Walk[facility]in [facility] at [phone] for non-emergency needs. Please return to the emergency department if you develop a severe or sudden change in your symptoms, a fever over 100.4 that does not improve with Tylenol or Ibuprofen, recurrent vomiting, or any other new or worsening symptoms or concerns. Prescriptions: No Action cholecalciferol (vitamin D3) 25 mcg (1,000 unit) capsule 25 mcg PO DAILY Qty: 30 6RF bismuth subsalicylate 262 mg tablet,chewable 2 tab PO QID 14 Days Qty: 112 0RF omeprazole 20 mg capsule,delayed release(DR/EC) 20 mg PO BID 14 Days Qty: 28 0RF tetracycline 500 mg capsule 500 mg PO QID 14 Days Qty: 56 0RF Rx Instructions: take 1 hour after Bismuth metronidazole 500 mg tablet 500 mg PO TID 14 Days Qty: 42 0RF epinephrine [EpiPen] 0.3 mg/0.3 mL auto-injector 0.3 mg IM Q15M PRN (Reason: allergic reaction) Qty: 2 0RF Rx Instructions: not to exceed 6 doses per episode dicyclomine 20 mg tablet 20 mg PO TID PRN (Reason: abdominal pain) Qty: 20 0RF cyclobenzaprine 10 mg tablet 10 mg PO TID PRN (Reason: muscle spasm) Qty: 20 0RF lidocaine 5 % adhesive patch,medicated 1 patch topical DAILY Qty: 30 0RF Rx Instructions: leave on most painful area for up to 12 hrs ondansetron 4 mg tablet,disintegrating 4 mg PO DAILY PRN (Reason: nausea and vomiting) 5 Days Qty: 10 0RF insulin glargine 100 unit/mL cartridge 50 unit subcut QPM insulin aspart U-100 [Novolog FlexPen U-100 Insulin] 100 unit/mL (3 mL) insulin pen 20 unit subcut BID bupropion HCl [Wellbutrin XL] 150 mg tablet extended release 24 hr 150 mg PO QAM quetiapine [Seroquel] 200 mg tablet 200 mg PO BEDTIME quetiapine [Seroquel] 50 mg tablet 50 mg PO DAILY metformin 1,000 mg tablet 1,000 mg PO DAILY albuterol sulfate 90 mcg/actuation HFA aerosol inhaler 2 puff inhalation Q6H PRN glipizide-metformin 2.5-250 mg tablet 1 tab PO DAILY Referrals: Lu Oreilly MD [Primary Care Provider, Internal Medicine] Clinical Impression: Gastroenteritis Print Language: Chinese
[2025-08-03 15:13] LABS: MANUAL DIFF FLAG NO
[2025-08-03 15:17] LABS: Hematocrit 42.4 % (37.0-47.0); Hemoglobin 14.5 g/dl (12.0-16.0); Imm Gran Abs Auto 0.02 X10*3/uL (0.00-0.03); Imm Gran Pct Auto 0.2 % (0.0-0.4); Lymphocytes Absolute Auto 2.6 X10*3/uL (1.2-4.9); Mean Corpuscular HGB Conc 34.2 g/dl (31.0-35.0); Mean Corpuscular Hemoglobin 29.8 pg (27.0-33.0); Mean Corpuscular Volume 87.1 fL (80.0-98.0); NRBC Abs Auto 0.000 X10*3/uL (0.0-0.012); NRBC Pct Auto 0.0 /100WBC (0.0-0.2); Platelet Count 231 X10*3/uL (160-400); Red Blood Count 4.87 X10*6/uL (4.20-5.50); White Blood Count 8.7 X10*3/uL (4.8-10.8)
[2025-08-03 15:38] LABS: Alanine Aminotransferase 37 U/L (0-31); Albumin Level 4.0 g/dL (3.5-5.0); Alkaline Phosphatase 136 U/L (39-117); Anion Gap 12 (12-20); Aspartate Amino Transferase 23 U/L (5-31); Blood Urea Nitrogen 10 mg/dL (9-16); Calcium 9.1 mg/dL (8.4-10.2); Carbon Dioxide 23 mmol/L (22-29); Chloride 106 mmol/L (96-108); Creatinine Clr Calc Pharmacy 142.7; Estimated Glomerular Filt Rate > 60; Lipase 20 U/L (8-78); Magnesium 1.6 mg/dL (1.6-2.6); Potassium 3.8 mmol/L (3.3-5.1); Sodium 137 mmol/L (135-145); Total Protein 7.5 g/dL (6.5-8.0)
[2025-08-03 16:11] LABS: Appearance Urine Clear; Glucose Urine UA >=1000 mg/dL (Negative); PH 5.5 (5.0-9.0); Specific Gravity - Urine >= 1.030 (1.005-1.025); UMIC TRIGGER UACC YES
--- OUTSIDE RECORDS SUMMARY | 2025-08-03 18:09 | XMS_ITS | Encounter Summary ---
Author Organization [email or web address] Address [address] [facility] 7 [place] [address] Care Team Providers Care Case Managers Name Role Phone Lu Oreilly MD Primary Care Provider [phone] Carey Zambrano PharmD Unavailable [phone] Encounter Details Date Type Department Care Team (Late st Contact Info) Description 05/19/2025 Orders Only [facility] MEDICINE [address] [place] [address] Lu Oreilly MD [address] [place] [address] Social History Tobacco Use Types Packs/Day Years Used Date Smoking Tobacco: Never Passive Smoke Exposure: Never Smokeless Tobacco: Never Alcohol Answer Date Recorded Frequency of Alcohol [...] your housing situation today? I have tristan raphael 12/08/[address] you li [...] Access Q2 Not on file 12/08/2024 Comments Unknown Sex and Gender Information Value Date Recorded Sex Assigned at Female 09/10/2022 10:17 AM EDT Legal Sex Female 10:17 AM EDT Gender Identity Female 09/10/2022 10:17 AM EDT Sexual Orientation Straight 09/10/2022 10 :17 AM EDT documented as of this encounter Plan of Treatment Upcoming Encounters Date Type Department Care Team (Late st Contact Info) Description 08/09/2025 1:00 PM EDT Medication Management [facility] MEDICINE [address] [place] [phone] Carey Zambrano, PharmD [address] [place] [phone] 08/30/2025 1:45 PM EDT Office Visit [facility] MEDICINE [address] [place] [phone] Lu Oreilly MD [address] [place] [phone] documented as of this encounter Visit Diagnoses Not on filedocumented in this encounter Additional Health Concerns Assessment Noted Time PHQ-9 Depression Total Score: 5 03/08/20 25 3:08 PM EDT documented as of this encounter Care Teams Case Managers Relationship Specialty Start Date End Date Lu Oreilly MD [address] [place] [phone] PCP - General Family Medicine 10/23/12 Carey Zambrano, KendellD [address] [place] [phone] Pharmacist Pharmacy 06/28/25 documented as of this encounter
--- OUTSIDE RECORDS SUMMARY | 2025-08-03 18:09 | XMS_ITS | Encounter Summary ---
Author Organization [employer] Address [address] [facility] [address] [place] [address] Care Team Providers Care Forensic Engineer Name Role Phone Lu Oreilly MD Primary Care Provider [phone] Carey Zambrano PharmD Unavailable [phone] Encounter Details Date Type Department Care Team (Late st Contact Info) Description 03/26/[address] [facility] MEDICINE [address] [place] [address] Lu Oreilly MD [address] [place] [address] Social History Tobacco Use Types Packs/Day Years Used Date Smoking Tobacco: Never Smokeless Tobacco: Never PHQ-2 Answer Date Recorded Patient Health Questionnaire-2 Score 0 2022 Depression Answer Date Recorded Patient Health Questionnaire-2 Score 0 2022 Comments Unknown Sex and Gender Information Value Date Recorded Sex Assigned at Female 09/10/2022 10:17 AM EDT Legal Sex Female 10:17 AM EDT Gender Identity Female 09/10/2022 10:17 AM EDT Sexual Orientation Straight 09/10/2022 10 :17 AM EDT COVID-19 Exposure Response Date Recorded In the last 10 days, have yo u been in contact with someone who was confirmed or suspected to have Coronavirus/COVID-19? No / Unsure 03/28/2023 2:47 PM EDT documented as of this encounter Plan of Treatment Upcoming Encounters Date Type Department Care Team (Late Contact Info) Description 08/09/2025 1:00 [address] EDT Medication Management [facility] MED[facility]INE [address] [place] [phone] Carey Zambrano, Tejinder [address] [place] [phone] 08/30/2025 1:45 PM EDT Office Visit [facility] [address] [place] [phone] Lu Oreilly MD [address] [place] [phone] documented as of this encounter Visit Diagnoses Not on filedocumented in this encounter Care Teams Forensic Engineer Relationship Specialty Start Date End Date Lu Oreilly MD [address] [place] [phone] PCP - General Family Medicine 10/23/12 Carey Zambrano, KendellD [address] [place] [phone] Pharmacist Pharmacy 06/28/25 documented as of this encounter
--- OUTSIDE RECORDS SUMMARY | 2025-08-03 18:09 | XMS_ITS | Encounter Summary ---
Author Organization [employer] Address [address] [facility] 7 [place] [address] Care Team Providers Care Trimmer Machine Operator Name Role Phone Lu Oreilly MD Primary Care Provider [phone] Carey Zambrano PharmD Unavailable [phone] Reason for Visit * Reason Comments Med Refill Encounter Details Date Type Department Care Team (Late st Contact Info) Description 12/15/2024 Refill [facility] MEDICINE [address] [place] [address] Lu Oreilly MD [address] [place], [place] [id number] Social History Tobacco Use Types Packs/Day Years Used Date Smoking Tobacco: Never Passive Smoke Exposure: Never Smokeless Tobacco: Never Alcohol Answer Date Recorded Frequency of Alcohol Consumption Not on file 06/09/2024 Average Number of Drinks Not on file 024 Frequency of Binge Drinking Not on file 05/13 Score 0 06/09/2024 Depression Answer Date Recorded Patient Health Questionnaire-9 Score 3 11/27/2023 Patient Health Questionnaire-9 Score 3 11/27/2023 Last PHQ-9: Questionnaire Data Not on file 0 11/27/2023 Housing Stability Answer Date Recorded What is [...] Date Recorded Patient Health Questionnaire-2 Score 1 11/27/2023 Internet Access Answer Date Recorded Internet Access [...] Description 08/09/2025 1:00 PM EDT Medication Management [facility] MEDICINE [address] [place] [phone] Carey Zambrano, PharmD [address] [place] [phone] 08/30/2025 1:45 PM EDT Office Visit [facility] MEDICINE [address] [place] [phone] Lu Oreilly MD [address] [place] [phone] documented as of this encounter Visit Diagnoses Not on filedocumented in this encounter Additional Health Concerns Assessment Noted Time PHQ-9 Depression Total Score: 3 11/27/19 24 9:48 AM EST documented as of this encounter Care Teams Trimmer Machine Operator Relationship Specialty Start Date End Date Lu Oreilly MD [address] [place] [phone] PCP - General Family Medicine 10/23/12 Carey Zambrano, KendellD [address] [place] [phone] Pharmacist Pharmacy 06/28/25 documented as of this encounter
--- OUTSIDE RECORDS SUMMARY | 2025-08-03 18:09 | XMS_ITS | Encounter Summary ---
Author Organization [employer] Address [address] [facility] [address] [place] [address] Care Team Providers Care Construction Contractor Name Role Phone Lu Oreilly MD Primary Care Provider [phone] Carey Zambrano PharmD Unavailable [phone] Encounter Details Date Type Department Care Team (Latest Contact Info) Description 08/03/2025 Travel Social History Tobacco Use Types Packs/Day Years [...] Description 08/09/2025 1:00 PM EDT Medication Management [facility] [address] [place] [phone] Carey Zambrano PharmD [address] [place] [phone] 08/30/2025 1:45 PM EDT Office Visit [facility] [address] [place] [phone] Lu Oreilly MD [address] [place] [phone] documented as of this encounter Visit Diagnoses Not on filedocumented in this encounter Additional Health Concerns Assessment Noted Time PHQ-9 Depression Total Score: 5 03/08/20 25 3:08 PM EDT documented as of this encounter Care Teams Construction Contractor Relationship Specialty Start Date End Date Lu Oreilly MD [address] [place] [phone] PCP - General Family Medicine 10/23/12 Carey Zambrano PharmD [address] [place] [address] [phone] Pharmacist Pharmacy 06/28/25 documented as of this encounter
--- OUTSIDE RECORDS SUMMARY | 2025-08-03 18:09 | XMS_ITS | Encounter Summary ---
Author Organization [employer] Address [address] [facility] 7t [place] [address] Care Team Providers Care Cook Fish [employer] Chips Name Role Phone Lu Oreilly MD Primary Care Provider [phone] Carey Zambrano PharmD Unavailable [phone] Reason for Visit * Reason Comments Med Refill Encounter Details Date Type Department Care Team (Late st Contact Info) Description 05/03/2025 Refill [facility] [address] [place] [phone] Lu Oreilly MD [address] [place] [address] [phone] Acute left-sided low back pain, unspecified whether sciatica present; Acute pain of left shoulder Social History Tobacco Use Types Packs/Day Years [...] Description 08/09/2025 1:00 PM EDT Medication Management [facility] [address] [place] [phone] Carey Zambrano PharmD [address] [place] [phone] 08/30/2025 1:45 PM EDT Office Visit [facility] [address] [place] [phone] Lu Oreilly MD [address] [place] [address] [phone] documented as of this encounter Visit Diagnoses Diagnosis Acute left-sided low back pain, unspecified whether sciatica present Acute pain of left shoulder documented in this encounter Additional Health Concerns Assessment Noted Time PHQ-9 Depression Total Score: 5 03/08/20 25 3:08 PM EDT documented as of this encounter Care Teams Cook Fish [employer] Chips Relationship Specialty Start Date End Date Lu Oreilly MD [address] [place] [address] PCP - General Family Medicine 10/23/12 Carey Zambrano, Tejinder [address] [place] [address] Pharmacist Pharmacy 06/28/25 documented as of this encounter
--- OUTSIDE RECORDS SUMMARY | 2025-08-03 18:09 | XMS_ITS | Encounter Summary ---
Author Organization [employer] Address [address] [facility] 7 [place] [address] Care Team Providers Care Tmd Teacher Name Role Phone Lu Oreilly MD Primary Care Provider [phone] Carey Zambrano PharmD Unavailable [phone] Reason for Visit * Reason Comments Med Refill Encounter Details Date Type Department Care Team (Late st Contact Info) Description 12/05/2024 Refill [facility] [address] [place] [address] Lu Oreilly MD [address] [place], [place] [phone] Social History Tobacco Use Types Packs/Day Years [...] Description 08/09/2025 1:00 PM EDT Medication Management [facility] [address] [place] [phone] Carey Zambrano, PharmD [address] [place] [phone] 08/30/2025 1:45 PM EDT Office Visit [facility] [address] [place] [phone] Lu Oreilly MD [address] [place] [address] [phone] documented as of this encounter Visit Diagnoses Not on filedocumented in this encounter Additional Health Concerns Assessment Noted Time PHQ-9 Depression Total Score: 3 11/27/19 24 9:48 AM EST documented as of this encounter Care Teams Tmd Teacher Relationship Specialty Start Date End Date Lu Oreilly MD [address] [place] [phone] PCP - General Family Medicine 10/23/12 Carey Zambrano, KendellD [address] [place] [address] [phone] Pharmacist Pharmacy 06/28/25 documented as of this encounter
--- OUTSIDE RECORDS SUMMARY | 2025-08-03 18:09 | XMS_ITS | Encounter Summary ---
Author Organization [employer] Address [address] [facility] 7 [place] [address] Care Team Providers Care Wax Room Supervisor Name Role Phone Lu Oreilly MD Primary Care Provider [phone] Carey Zambrano PharmD Unavailable [phone] Reason for Visit * Reason Comments Med Refill Encounter Details Date Type Department Care Team (Late st Contact Info) Description 12/20/2023 Refill [facility] [address] [place], [place] [phone] Lu Oreilly MD [address] [place], [place] [phone] Gastroesophageal reflux disease, unspecified whether esophagitis present Social History Tobacco Use Types Packs/Day Years Used Date Smoking Tobacco: Never Passive Smoke Exposure: Never Smokeless Tobacco: Never Depression Answer Date Recorded Patient Health Questionnaire-9 Score 3 11/27/2023 Patient Health Questionnaire-9 Score 3 11/27/2023 Last PHQ-9: Questionnaire Data Not on file 0 11/27/2023 Housing Stability Answer Date Recorded What is your housing situation today? I have tristan raphael 11/27/[address] you li ve. Do you have problems with any of the following? None of the above 11/27/2023 Food Insecurity Answer Date Recorded Within the past 12 months, y ou worried that your food would run out before you got money to buy more: Never True 11/27/2023 Within the past 12 months,th e food you bought just didn't last and you didn't have enough money to get more: Never True Transportation Answer Date Recorded In the past 12 months, has l ack of transportation kept you from medical appts, meetings, work or from getting things needed for daily living? No 11/27/2023 Utilities Answer Date Recorded In the past 12 months, has t he electric, gas, oil or water company threatened to shut off services in your home? No 11/27/2023 Depression Answer Date Recorded Patient Health Questionnaire-2 Score 1 11/27/2023 Comments Unknown Sex and Gender Information Value [...] Description 08/09/2025 1:00 PM EDT Medication Management [facility] [address] [place] [phone] Carey Zambrano PharmD [address] [place] [phone] 08/30/2025 1:45 PM EDT Office Visit [facility] [address] [place] [address] [phone] Lu Oreilly MD [address] [place] [phone] documented as of this encounter Visit Diagnoses Diagnosis Gastroesophageal reflux disease, unspecified whether esophagitis present documented in this encounter Additional Health Concerns Assessment Noted Time PHQ-9 Depression Total Score: 3 11/27/19 24 9:48 AM EST documented as of this encounter Care Teams Wax Room Supervisor Relationship Specialty Start Date End Date Lu Oreilly MD [address] [place] [phone] PCP - General Family Medicine 10/23/12 Carey Zambrano, PharmD [address] [place] [address] [phone] Pharmacist Pharmacy 06/28/25 documented as of this encounter
--- OUTSIDE RECORDS SUMMARY | 2025-08-03 18:09 | XMS_ITS | Clinical Summary ---
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 Name Role Phone Lu Oreilly MD Primary Care Provider [phone] Carey Zambrano PharmD Unavailable Allergies Active Allergy Reactions Criticality Noted Date Comments Haloperidol 08/04/2015 Sertraline 10/21/2012 Medications Vit-Fe Fumarate-FA ( Low Iron) 27-0.8 MG tablet take 1 tablet by oral route every day 12/14/19 20 Active Nebulizers (Comp A-I-R Nebulizer) [facility] [place] Comp-air nebulizer compressor Use for nebulizer treatment Active Nebulizer [facility] [place] Reusable nebulizer kit Tubing and mask, use for nebulizer Active Vitamin D High Potency 25 MCG (1000 UT) capsule TAKE 1 CAPSULE BY MOUTH EVERY DAY 03/19/20 22 Active Blood Pressure Monitor kitIndications:B lood pressure elevated without history of HTN Check blood glucose three times daily before meal and as needed 1 kit 11/19/19 23 Active hydrocortisone 1 % creamIndications :Vulvovaginal pruritus Apply topically 2 times daily. 14 g 11/30/19 23 Active EPINEPHrine (EpiPen 2-Ron) 0.3 MG/0.3ML injection syringe inject 0.3 milliliter by intramuscular route once as needed for anaphylaxis 1 each 03/02/20 24 Active Diclofenac Sodium 1 % gel Apply to affected area once or twice daily 150 g 03/02/20 24 Active fluticasone (Flonase Allergy Relief) 50 MCG/ACT nasal spray spray 1 - 2 spray by intranasal route every day in each nostril as needed 16 g 3 03/02/20 24 Active Blood Glucose Monitoring Suppl (FreeStyle Lite) w/Device kit 1 Dose 4 times daily. 1 kit 03/02/20 24 Active buPROPion XL (Wellbutrin XL) 150 MG 24 hr tablet Take 150 mg by mouth Once per day. Do not crush, chew, or split. Active QUEtiapine (SEROquel) 50 MG tablet Take 50 mg by mouth Once per day. Active QUEtiapine (SEROquel) 200 MG tablet Take 200 mg by mouth at bedtime. Active FREESTYLE LITE test strip Check blood glucose 4 times daily 100 each 11 11/12/19 25 Active clotrimazole (Lotrimin) 1 % creamIndications :Vulvar itching Apply externally as needed twice daily for vulvar itching 30 g 12/05/19 25 Active dicyclomine (Bentyl) 20 MG tablet TAKE 1 TABLET BY MOUTH THREE TIMES DAILY NEEDED FOR ABDOMINAL PAIN 90 tablet 2 12/05/19 25 Active loratadine (Claritin) 10 MG tabletIndication s:Allergic rhinitis, unspecified seasonality, unspecified trigger Take 1 tablet (10 mg) by mouth Once per day. 90 tablet 3 12/05/19 25 Active olmesartan (Benicar) 5 MG tablet Take 1 tablet (5 mg) by mouth Once per day. 90 tablet 3 12/05/19 25 026 Active omeprazole (PriLOSEC) [address] capsuleIndicatio ns:Gastroesophag eal reflux disease, unspecified whether esophagitis present Take 1 capsule by mouth twice a day as needed. Take before meal 180 capsule 12/05/19 25 Active insulin pen needle (Pentips) 32G x 4 mm miscIndications: Type 2 diabetes mellitus without complication, with long-term current use of insulin ([facility]) Use as instructed 100 each 12/05/19 25 Active glucose blood (FreeStyle Precision Evans Test) test stripIndications :Type 2 diabetes mellitus with hyperglycemia, with long-term current use of insulin ([facility]) Use to test blood sugar three times daily 100 each 12 12/15/19 25 026 Active methocarbamol (Robaxin) 750 MG tabletIndication s:Acute pain of left shoulder Take 1 tablet (750 mg) by mouth if needed in the morning, at noon, in the evening, and at bedtime for muscle spasms for up to 7 days. 28 tablet 12/29/19 25 Active NIFEdipine XL (Procardia XL) 30 MG 24 hr tabletIndication s:Essential (primary) hypertension TAKE 1 TABLET BY MOUTH ONCE DAILY IN THE MORNING DO NOT BREAK, CRUSH, DISSOLVE OR CHEW 90 tablet 1 02/04/20 25 Active insulin lispro (HumaLOG KWIKPEN) 100 UNIT/ML injectionIndicat ions:Type 2 diabetes mellitus with hyperglycemia, with long-term current use of insulin ([facility]) INJECT 18 TO 20 UNITS SUBCUTANEOUSLY THREE TIMES DAILY WITH MEALS 15 mL 02/25/20 25 Active acetaminophen (Tylenol 8 Hour) 650 MG ER tabletIndication s:Acute left-sided low back pain, unspecified whether sciatica present,Acute pain of left shoulder TAKE 1 TABLET BY MOUTH EVERY 8 HOURS NEEDED FOR MILD OR MODERATE PAIN, DO NOT BREAK, CRUSH, DISSOLVE OR CHEW 30 tablet 03/26/20 25 Active Ventolin HFA 108 (90 Base) MCG/ACT inhalerIndicatio ns:Influenza-lik e symptoms INHALE 2 PUFFS BY MOUTH EVERY 4 TO 6 HOURS NEEDED 18 g 1 04/02/20 25 Active folic acid (Folvite) 800 MCG tablet TAKE 1 TABLET BY MOUTH EVERY DAY 90 tablet 04/06/20 25 Active metFORMIN (Glucophage) 1000 MG tabletIndication s:Type 2 diabetes mellitus with hyperglycemia, with long-term current use of insulin ([facility]) TAKE 1 TABLET BY MOUTH TWICE DAILY EVERY MORNING AND EVENING WITH FOOD 180 tablet 04/19/20 25 Active ibuprofen 800 MG tablet TAKE 1 TABLET BY MOUTH EVERY 8 HOURS NEEDED FOR MODERATE PAIN FOR UP TO 10 DAYS 30 tablet 05/04/20 25 Active albuterol (2.5 MG/3ML) 0.083% nebulizer solutionIndicati ons:Influenza-li ke symptoms INHALE 1 AMPULE USING A NEBULIZER EVERY 4 HOURS NEEDED SHORTNESS OF BREATH OR FOR WHEEZING 90 mL 05/19/20 25 Active ondansetron (Zofran) 4 MG tablet TAKE 1 TO 2 TABLETS BY MOUTH EVERY 8 HOURS NEEDED FOR NAUSEA 30 tablet 1 05/19/20 25 Active FreeStyle lancets 1 each by Other route 4 times daily. 100 each 06/06/20 25 Active Alcohol Swabs (Alcohol Prep) pads Check blood sugar 3 times daily and as needed. Use as directed 200 each 06/06/20 25 Active insulin glargine (Lantus SoloStar) 100 UNIT/ML penIndications:T ype 2 diabetes mellitus with hyperglycemia, with long-term current use of insulin (CMS/HCC) Inject 36 Units under the skin Once daily. 15 mL 3 06/28/20 25 Active Continuous Glucose Prosecuting Attorney (FreeStyle Karishma 3 [place]) deviceIndication s:Type 2 diabetes mellitus with hyperglycemia, with long-term current use of insulin (CMS/HCC) 1 each Once per day. Use as directed for CGM 1 each 06/28/20 25 Active Continuous Glucose Sensor (FreeStyle Karishma 3 Plus Sensor) miscIndications: Type 2 diabetes mellitus with hyperglycemia, with long-term current use of insulin (CMS/HCC) 1 each every 15 days. Apply 1 every 15 days as directed for CGM 2 each 06/28/20 25 Active Tirzepatide (Mounjaro) 5 MG/0.5ML solution auto-injectorInd ications:Type 2 diabetes mellitus with hyperglycemia, with long-term current use of insulin (CMS/HCC) Inject 5 mg under the skin every 7 (seven) days. 2 mL 1 07/27/20 25 Active Tirzepatide (Mounjaro) 2.5 MG/0.5ML solution auto-injectorInd ications:Type 2 diabetes mellitus with hyperglycemia, with long-term current use of insulin (CMS/HCC) Inject 2.5 mg under the skin every 7 (seven) days. 2 mL 06/28/20 25 025 Discontin ued(Dose adjustmen t) Active Problems Problem Noted Date Diagnosed Date Right sided abdominal pain 08/03/2025 Assessment & Plan (08/03/2025 2:33 PM EDT): Patent with acute abdominal pain I can not r/o appendicitis/ cholecystitis, patient also dehydrated HR 117 unable to keep food or water I [place] [facility] [place] [facility] Acute pain of left shoulder 03/27/2024 Assessment & Plan (12/29/2024 7:09 PM EST): Pt with diffuse tenderness to leftshoulder region No focal pain Advised heat, hydration, walking gentle stretching Prn muscle relaxer and acetaminophen sent Assessment & Plan (03/27/2024 3:36 PM EDT): Apply heat on affected area Gentle stretching was advise Patient tells me she was already refer to PT XRAY ordered today patient will be contacted with results I instructed to stop flexeril in stead robaxin 4 times a day Toradol 30mg IM today, tomorrow start cataflan 50mg Q 8hrs Chronic back pain 03/07/2024 Assessment & Plan (03/09/2025 11:05 PM EDT): - patient attended PT few times - encouraged home back exercise - continue judicious use of APAP Assessment & Plan (06/09/2024 10:46 AM EDT): - patient attended PT few times - encouraged home back exercise - continue judicious use of APAP Assessment & Plan (03/07/2024 7:10 PM EDT): - refer to PT Dyslipidemia 11/27/2023 Assessment & Plan (06/06/2025 5:46 PM EDT): - Last lipid profile 09/17/2024 total cholesterol 208 triglyceride 250 LDL 110 HDL 48 - Will consider starting statin soon (she is turning 40 in 2025) Assessment & Plan (03/09/2025 11:05 PM EDT): - 08/01/23 total cholesterol 226; triglyceride 158; HDL 46; LDL 149 - Will consider starting statin Assessment & Plan (06/07/2024 6:10 PM EDT): - 08/01/23 total cholesterol 226; triglyceride 158; HDL 46; LDL 149 - Will consider starting statin Assessment & Plan (03/02/2024 3:56 PM EDT): - 08/01/23 total cholesterol 226; triglyceride 158; HDL 46; LDL 149 - Will consider starting statin Assessment & Plan (12/01/2023 4:56 PM EST): - 08/01/23 total cholesterol 226; triglyceride 158; HDL 46; LDL 149 - Will consider starting statin Metabolic dysfunction-associ ated steatotic liver disease (MASLD) 08/16/2023 Assessment & Plan (06/29/2025 5:22 PM EDT): - 08/10/23 CT enlarged fatty liver - 08/10/23 AST 47; ALT 44; AP 127 - 03/17/24 Liver US / elastography: hepatomegaly; generalized increase in hepatic echotexture, consistent with fatty infiltration or hepatocellular disease. No focal hepatic mass or intrahepatic biliary dilation. Shear wave elastography medial stiffness is 1.48 m/s - FIB-4 index: 1.09 - Still waiting for appointment with GI Assessment & Plan (06/03/2025 11:33 PM EDT): - 08/10/23 CT enlarged fatty liver - 08/10/23 AST 47; ALT 44; AP 127 - 03/17/24 Liver US / elastography: hepatomegaly; generalized increase in hepatic echotexture, consistent with fatty infiltration or hepatocellular disease. No focal hepatic mass or intrahepatic biliary dilation. Shear wave elastography medial stiffness is 1.48 m/s - FIB-4 index: 1.09 - Still waiting for appointment with GI Assessment & Plan (03/09/2025 11:03 PM EDT): - 08/10/23 CT enlarged fatty liver - 08/10/23 AST 47; ALT 44; AP 127 - 03/17/24 Liver US / elastography: hepatomegaly; generalized increase in hepatic echotexture, consistent with fatty infiltration or hepatocellular disease. No focal hepatic mass or intrahepatic biliary dilation. Shear wave elastography medial stiffness is 1.48 m/s - FIB-4 index: 1.09 - Still waiting for appointment with GI Assessment & Plan (06/07/2024 6:09 PM EDT): - 08/10/23 CT enlarged fatty liver - 08/10/23 AST 47; ALT 44; AP 127 - 03/17/24 Liver US / elastography: hepatomegaly; generalized increase in hepatic echotexture, consistent with fatty infiltration or hepatocellular disease. No focal hepatic mass or intrahepatic biliary dilation. Shear wave elastography medial stiffness is 1.48 m/s - FIB-4 index: 1.09 - Still waiting for appointment with GI Assessment & Plan (03/07/2024 7:03 PM EDT): - 08/10/23 CT enlarged fatty liver - 08/10/23 AST 47; ALT 44; AP 127 - Still waiting for appointment with GI - will update US Assessment & Plan (12/01/2023 3:33 PM EST): - 08/10/23 CT enlarged fatty liver - 08/10/23 AST 47; ALT 44; AP 127 - Still waiting for appointment with GI Abnormal uterine bleeding (AUB) 02/05/2023 Assessment & Plan (03/09/2025 11:03 PM EDT): test negative -pt has PCOS -continue improving glycemic control and weight -pt is following with Reproductive Health Spec./Massage Coordinator Assessment & Plan (02/05/2023 4:46 PM EDT): test negative -pt has PCOS -continue improving glycemic control and weight -pt is following with Reproductive Health Spec./Massage Coordinator Other fatigue 02/05/2023 Assessment & Plan (02/05/2023 4:48 PM EDT): -Will check lab -pt encouraged to call her Associate Sales regarding CPAP machine Essential hypertension 02/05/2023 Assessment & Plan (06/29/2025 5:21 PM EDT): -Goal BP < 130/80 per ACC/AHA guideline (Treatment threshold >= 130/80 ) -BP not at goal today -Continue working on lifestyle modifications -Recommended self-monitoring BP. -Continue Olmesartan 5 mg once daily. Patient is not interested in becoming -Referred to CDTM; patient missed appointment due to family emergency. Would like to be referred again. Assessment & Plan (06/06/2025 5:43 PM EDT): -Goal BP < 130/80 per ACC/AHA guideline (Treatment threshold >= 130/80 ) -BP not at goal today -Continue working on lifestyle modifications -Recommended self-monitoring BP. -Continue Olmesartan 5 mg once daily. Patient is not interested in becoming -Referred to CDTM; patient missed appointment due to family emergency. Would like to be referred again. Assessment & Plan (03/08/2025 3:03 PM EDT): -Goal BP < 140/90 per JNC-8 and < 130/80 per ACC/AHA guideline (Treatment threshold >= 130/80 ) -BP not at goal today -Continue working on lifestyle modifications -Recommended self-monitoring BP. -Continue Olmesartan 5 mg once daily. Patient is not interested in becoming -Referred to CDTM; patient missed appointment due to family emergency. Would like to be referred again. -Follow up in 3 mo, sooner if any problem arises - Will prescribe a wrist BP monitor Assessment & Plan (12/14/2024 10:32 PM EST): -Goal BP < 140/90 per JNC-8 and < 130/80 per ACC/AHA guideline (Treatment threshold >= 130/80 ) -BP not at goal today -Continue working on lifestyle modifications -Recommended self-monitoring BP. -Continue Olmesartan 5 mg once daily. Patient is not interested in becoming -Referred to CDTM; patient missed appointment due to family emergency. Would like to be referred again. -Follow up in 3 mo, sooner if any problem arises Assessment & Plan (09/06/2024 4:33 PM EDT): -Goal BP < 140/90 per JNC-8 and < 130/80 per ACC/AHA guideline (Treatment threshold >= 130/80 ) -BP below threshold today -Continue working on lifestyle modifications -Recommended self-monitoring BP. -Continue Olmesartan 5 mg once daily. Patient is not interested in becoming -Referred to CDTM -Follow up in 3 mo, sooner if any problem arises Assessment & Plan (06/09/2024 10:45 AM EDT): -Goal BP < 140/90 per JNC-8 and < 130/80 per ACC/AHA guideline (Treatment threshold >= 130/80 ) -Continue working on lifestyle modifications -Recommended self-monitoring BP. -Pt was not adherent to nifedipine 30 mg daily, which was chosen because it was safe for and patient desired in the past -Considered labetalol 100 mg bid (will not start since pt has asthma) -Continue Olmesartan 5 mg once daily. Patient is not interested in becoming -Referred to CD[facility] -Follow up in 3 mo, sooner if any problem arises Assessment & Plan (03/02/2024 3:54 PM EDT): -Goal BP < 140/90 per JNC-8 and < 130/80 per ACC/AHA guideline (Treatment threshold >= 130/80 ) -Continue working on lifestyle modifications -Recommended self-monitoring BP. -Pt is not compliant with nifedipine 30 mg daily, safe for -Considered labetalol 100 mg bid (will not start since pt has asthma) -Start Olmesartan 5 mg once daily. -Refer to CDTM -Follow up in 3 mo, sooner if any problem arises Assessment & Plan (11/27/2023 5:19 AM EST): -Goal BP < 140/90 per JNC-8 and < 130/80 per ACC/AHA guideline (Treatment threshold >= 130/80 ) -Continue working on lifestyle modifications -Recommended self-monitoring BP. -Start nifedipine 30 mg daily, safe for -Considered labetalol 100 mg bid (will not start since pt has asthma) -Refer to CDTM -Follow up in 3 mo, sooner if any problem arises Assessment & Plan (08/16/2023 3:33 PM EDT): Today BP elevated likely due to pain I advise to take her medications, low Na diet and f/u with PCP Assessment & Plan (08/02/2023 11:04 AM EDT): -Goal BP < 140/90 per JNC-8 and < 130/80 per ACC/AHA guideline (Treatment threshold >= 130/80 ) -Continue working on lifestyle modifications -Recommended self-monitoring BP. -Start nifedipine 30 mg daily, safe for -Considered labetalol 100 mg bid (will not start since pt has asthma) -Refer to CDTM -Follow up in 3 mo, sooner if any problem arises Assessment & Plan (05/08/2023 5:45 AM EDT): -Goal BP < 140/90 per JNC-8 and < 130/80 per ACC/AHA guideline (Treatment threshold >= 130/80 ) -Continue working on lifestyle modifications -Recommended self-monitoring BP. -Prescribed nifedipine 30 mg daily, which was safe for in January 2023 -If pt is not planning to become for a while, we can consider using ARB/ACEI. However, if she still has a plan, then we will consider using labetalol and nifedipine. -Referred to CD[facility], difficulty contacting pt -Follow up in 3 mo, sooner if any problem arises clinic Assessment & Plan (02/16/2023 7:17 PM EDT): -Goal BP < 140/90 per JNC-8 and < 130/80 per ACC/AHA guideline (Treatment threshold >= 130/80 ) -Continue working on lifestyle modifications -Recommended self-monitoring BP. -Start nifedipine 30 mg daily, safe for -Considered labetalol 100 mg bid (will not start since pt has asthma) -Refer to CDTM -Follow up in 3 mo, sooner if any problem arises clinic Infertility, female 11/23/2022 Assessment & Plan (05/08/2023 5:50 AM EDT): - in a setting of PCOS - continue working on achieving healthier weight - following with Reproductive Health specialist Assessment & Plan (11/23/2022 6:10 AM EST): - in a setting of PCOS - continue working on weight loss - upcoming appt with Reproductive Health specialist Obstructive sleep apnea syndrome 10/22/2022 Assessment & Plan (06/06/2025 5:54 PM EDT): - sleep study on 07/14/21, moderate-severe YNIG. Recommended AutoPAP 6-20 cm of water - Seen by bar catcher, last visit on 10/26/21 and prescribed CPAP - Patient had not been adherent and scheduled for another sleep study, which she missed again -Ordered new sleep study in February 2025, patient requests home sleep study today; will change - Will consider referral to sleep medicine clinic if home sleep study is not approved. Will prescribe sleep apnea machine after sleep study 03/08/25 Assessment & Plan (03/08/2025 3:04 PM EDT): - sleep study on 07/14/21, moderate-severe YING. Recommended AutoPAP 6-20 cm of water - Seen by bar catcher, last visit on 10/26/21 and prescribed CPAP - Patient had not been adherent and scheduled for another sleep study, which she missed again -Will order new sleep study. Will prescribe sleep apnea machine after sleep study 03/08/25 Assessment & Plan (09/06/2024 4:38 PM EDT): - sleep study on 07/14/21, moderate-severe YING. Recommended AutoPAP 6-20 cm of water - Seen by bar catcher, last visit on 10/26/21 and prescribed CPAP - Patient had not been adherent and scheduled for another sleep study, which she missed again Assessment & Plan (06/09/2024 10:50 AM EDT): - sleep study on 07/14/21, moderate-severe YING. Recommended AutoPAP 6-20 cm of water - Seen by bar catcher, last visit on 10/26/21 and prescribed CPAP - Patient had not been adherent and now scheduled for another sleep study Assessment & Plan (03/07/2024 7:02 PM EDT): - Seen by bar catcher, last visit on 10/26/21 and prescribed CPAP - Patient had not been adherent and now scheduled for another sleep study Assessment & Plan (11/27/2023 5:18 AM EST): - Seen by Associate Sales 10/26/21. Prescribed CPAP. -Advised to contact bar catcher's office regarding to CPAP Assessment & Plan (08/02/2023 11:03 AM EDT): - Seen by Associate Sales 10/26/21. Prescribed CPAP. -Advised to contact bar catcher's office regarding to CPAP Assessment & Plan (05/08/2023 5:42 AM EDT): - Seen by Associate Sales 10/26/21. Prescribed CPAP. - Improve adherence to CPAP or work on weight loss - Recommended to contact pulmonology office regarding to CPAP Assessment & Plan (02/16/2023 7:04 PM EDT): - Seen by Associate Sales 10/26/21. Prescribed CPAP. -Advised to contact bar catcher's office regarding to CPAP Assessment & Plan (11/23/2022 6:13 AM EST): - Seen by Associate Sales 10/26/21. Prescribed CPAP. - Improve adherence to CPAP or work on weight loss Mood disorder 01/04/2014 Assessment & Plan (03/09/2025 11:05 PM EDT): - current [facility] provider: [facility] - current medications: Quetiapine and bupropion - continue counseling with [facility] Assessment & Plan (12/14/2024 10:36 PM EST): - current [facility] provider: [facility] - current medications: Quetiapine and bupropion - continue counseling with [facility] Assessment & Plan (06/07/2024 6:10 PM EDT): - current [facility] provider: [facility] - current medications: Quetiapine and bupropion - continue counseling with [facility] Assessment & Plan (03/02/2024 3:57 PM EDT): - current [facility] provider: [facility] - current medications: Quetiapine and bupropion - continue counseling with [facility] Assessment & Plan (11/27/2023 5:20 AM EST): - current [facility] provider: [facility] - current medications: Quetiapine and bupropion - continue counseling with [facility] Assessment & Plan (08/02/2023 11:10 AM EDT): - current S provider: [facility] - current medications: Quetiapine and bupropion - continue counseling with [facility] Obesity 01/04/2014 Assessment & Plan (06/06/2025 5:52 PM EDT): -YING, diabetes mellitus type 2, MASLD, PCOS -previously following with [facility] -currently on dulaglutide, although its effect has plateaued. -will submit PA for tirzepatide (or semaglutide) again since she has multiple medical conditions which she will be able to improve with GLP1RA assisted weight loss. Assessment & Plan (03/09/2025 11:04 PM EDT): -YING, DM2 -following with [facility] again - continue their treatment program Assessment & Plan (03/07/2024 7:09 PM EDT): -YING, DM2 -following with [facility] again - continue their treatment program Assessment & Plan (05/08/2023 5:52 AM EDT): -YING, DM2 -Tried [facility] -Was going to follow up with [facility], but has not started Assessment & Plan (2022 10:15 AM EST): -YING, DM2 -Trued [facility] -Upcoming appt with [facility] PCOS (polycystic ovarian syndrome) 01/04/2014 Assessment & Plan (06/06/2025 5:49 PM EDT): - continue metformin for diabetes - continue working on achieving healthier weight Assessment & Plan (03/09/2025 11:04 PM EDT): - continue metformin for diabetes - continue working on achieving healthier weight Assessment & Plan (03/07/2024 7:08 PM EDT): - continue metformin for diabetes - continue working on achieving healthier weight Assessment & Plan (08/02/2023 11:05 AM EDT): - continue metformin for diabetes - continue working on achieving healthier weight Assessment & Plan (05/08/2023 5:50 AM EDT): - continue metformin for diabetes - continue working on achieving healthier weight Assessment & Plan (11/23/2022 6:15 AM EST): - continue metformin for diabetes - continue working on achieving healthier weight Asthma 08/05/2012 Assessment & Plan (03/09/2025 11:03 PM EDT): -[facility] -most recent exacerbation due to influenza and COVID in Oct 2022 -Continue albuterol HFA and neb prn -Consider PFT to assess her asthma stage -Patient will reschedule appt with bar catcher Assessment & Plan (06/09/2024 10:41 AM EDT): -[facility] -most recent exacerbation due to influenza and COVID in Oct 2022 -Continue albuterol HFA and neb prn -Consider PFT to assess her asthma stage -Patient will reschedule appt with bar catcher Assessment & Plan (03/07/2024 7:02 PM EDT): -[facility] -most recent exacerbation due to influenza and COVID in Oct 2022 -Continue albuterol HFA and neb prn -Consider PFT to assess her asthma stage -Encouraged to reschedule appt with bar catcher Assessment & Plan (08/02/2023 11:04 AM EDT): -[facility] -most recent exacerbation due to influenza and COVID in Oct 2022 -Continue albuterol HFA and neb prn -Consider PFT to assess her asthma stage -Encouraged to reschedule appt with bar catcher Assessment & Plan (02/16/2023 7:05 PM EDT): -[place] [facility] [place]most recent exacerbation due to influenza and COVID in Oct 2022 -Continue albuterol HFA and neb prn -Consider PFT to assess her asthma stage Assessment & Plan (2022 10:14 AM EST): -Recent exacerbation due to influenza and COVID in Oct 2022 -Continue albuterol HFA and neb prn -Consider PFT to assess her asthma stage Type 2 diabetes mellitus 08/05/2011 Assessment & Plan (07/02/2025 2:58 PM EDT): -A1C 12.8% on 06/03/25, increased from 9.0% on 03/08/25 -Co-managed with our pharmacist -Continue working on lifestyle modifications -Discussed about the importance of diabetes management -Patient attended 1st CDTM appointment today. Making a progress. -Continue checking BG -Continue Metformin ER 1000 mg bid -continue basal insulin 50 units once daily; change to degludec with the same dose -continue NovoLog to 18-20 units each meal -currently on dulaglutide to 4.5 mg weekly; tried to switch to tirzepatide, but PA was denied, trying again -Treatment Hx: Glipizide was discontinued since patient is currently on GLP1RA and insulin. Patient declines SGLT-2 inhibitor due to recurrent vulvovaginitis -Last eye exam: 08/18/2018, referred in Jul 2023, referred to [facility], referring back to [facility] eye care -Last foot exam: 12/08/24, mildly impaired sensation -Last microalbumin test: 11/27/23 no microalbuminuria -Last lipid profile: 09/27/24 -Follow up in 3 mo or sooner prn Hyperglycemia today. Urine shows ketone. No new symptoms. Patient was given 10 units of insulin today. Check beta-hydroxybutyrate and BMP to assess fluid balance and electrolytes. Check urine culture for possible infection. Assessment & Plan (06/06/2025 5:47 PM EDT): -A1C 12.8% on 06/03/25, increased from 9.0% on 03/08/25 -Continue working on lifestyle modifications -Discussed about the importance of diabetes management -Patient missed appointment for CGM teaching and CDTM. Re-refer. Patient agrees to keep appointments. -Continue checking BG -Continue Metformin ER 1000 mg bid -continue basal insulin 50 units once daily; change to degludec with the same dose -continue NovoLog to 18-20 units each meal -currently on dulaglutide to 4.5 mg weekly; tried to switch to tirzepatide, but PA was denied -Treatment Hx: Glipizide was discontinued since patient is currently on GLP1RA and insulin. Patient declines SGLT-2 inhibitor due to recurrent vulvovaginitis -Last eye exam: 08/18/2018, referred in Jul 2023, referred to [facility], referring back to [facility] eye care -Last foot exam: 12/08/24, mildly impaired sensation -Last microalbumin test: 11/27/23 no microalbuminuria -Last lipid profile: 09/27/24 -Follow up in 3 mo or sooner prn Assessment & Plan (03/14/2025 12:15 PM EDT): -A1C 9.0% on 03/08/25, improvement from 13.3% on 12/08/24 -Continue working on lifestyle modifications -Discussed about the importance of diabetes management -Patient missed appointment for CGM teaching and CDTM. Re-refer. Patient agrees to keep appointments. -Continue checking BG -Continue Metformin ER 1000 mg bid -continue basal insulin 50 units once daily; change to degludec with the same dose -continue NovoLog to 18-20 units each meal -currently on dulaglutide to 4.5 mg weekly; will change to tirezepatide. -Treatment Hx: Glipizide was discontinued since patient is currently on GLP1RA and insulin. Patient declines SGLT-2 inhibitor due to recurrent vulvovaginitis -Last eye exam: 08/18/2018, referred in Jul 2023, referred to [facility], referring back to [facility] eye care -Last foot exam: 12/08/24, mildly impaired sensation -Last microalbumin test: 11/27/23 no microalbuminuria -Last lipid profile: 09/27/24 -Follow up in 3 mo or sooner prn Assessment & Plan (12/14/2024 10:36 PM EST): -A1C 13.3% on 12/08/24, worsened from 12.2% on 09/01/24 -Continue working on lifestyle modifications -Discussed about the importance of diabetes management -Patient missed appointment for CGM teaching and CDTM. Re-refer. Patient agrees to keep appointments. -Continue checking BG -Continue Metformin ER 1000 mg bid -continue Lantus 50 units once daily -continue NovoLog to 18-20 units each meal -increase dulaglutide to 4.5 mg weekly; consider Semaglutide or tirezepatide. -discontinued glipizide -Treatment Hx: Trulicity was discontinued because she wants to become ; discontinued glipizide for a while because she was trying to become , restarted Trulicity because she decided not to become . Patient declines SGLT-2 inhibitor due to recurrent vulvovaginitis -Last eye exam: 08/18/2018, referred in Jul 2023, referred to [facility], referring back to [facility] eye care -Last foot exam: 12/08/24, mildly impaired sensation -Last microalbumin test: 11/27/23 no microalbuminuria -Last lipid profile: 09/27/24 -Follow up in 3 mo or sooner prn Assessment & Plan (09/01/2024 3:36 PM EDT): -A1C 12.2% on 09/01/24 -Continue working on lifestyle modifications -Discussed about the importance of diabetes management -Patient missed appointment for CGM teaching; our pharmacist has generously agreed to see her after this appointment. -Continue checking BG 3-4 times daily. -Continue Metformin ER 1000 mg bid -continue Lantus 50 units once daily -continue NovoLog to 18-20 units each meal -increase dulaglutide to 4.5 mg weekly -discontinue glipizide -Treatment Hx: Trulicity was discontinued because she wants to become ; discontinued glipizide for a while because she was trying to become , restarted Trulicity because she decided not to become . Patient declines SGLT-2 inhibitor due to recurrent vulvovaginitis -Last eye exam: 08/18/2018, referred in Jul 2023, referred to [facility] -Last foot exam: 11/19/22, mildly impaired sensation -Last microalbumin test: 11/27/23 no microalbuminuria -Last lipid profile: 08/01/23 total cholesterol 226; triglyceride 158; HDL 46; LDL 149 -Follow up in 3 mo or sooner prn Assessment & Plan (06/09/2024 10:46 AM EDT): -A1C 9.5% in February 2024, improving -Continue working on lifestyle modifications -Discussed about the importance of diabetes management -Patient missed appointment for CGM teaching; our pharmacist has generously agreed to see her after this appointment. -Continue checking BG 3-4 times daily. -Continue Metformin ER 1000 mg bid -continue Lantus 50 units once daily -continue NovoLog to 18-20 units each meal -increase dulaglutide to 4.5 mg weekly -discontinue glipizide -Treatment Hx: Trulicity was discontinued because she wants to become ; discontinued glipizide for a while because she was trying to become , restarted Trulicity because she decided not to become . Patient declines SGLT-2 inhibitor due to recurrent vulvovaginitis -Last eye exam: 08/18/2018, referred in Jul 2023, referred to [facility] -Last foot exam: 11/19/22, mildly impaired sensation -Last microalbumin test: 11/27/23 no microalbuminuria -Last lipid profile: 08/01/23 total cholesterol 226; triglyceride 158; HDL 46; LDL 149 -Follow up in 3 mo or sooner prn Assessment & Plan (03/07/2024 7:08 PM EDT): -A1C 9.5%, improving -Continue working on lifestyle modifications -Discussed about the importance of diabetes management -Patient missed appointment for CGM teaching; our pharmacist has generously agreed to see her after this appointment. -Continue checking BG 3-4 times daily. -Continue Metformin ER 1000 mg bid -continue Lantus 50 units once daily -continue NovoLog to 18-20 units each meal -continue dulaglutide 3 mg weekly -Treatment Hx: Trulicity was discontinued because she wants to become ; discontinued glipizide for a while because she was trying to become , restarted Trulicity because she decided not to become . Patient declines SGLT-2 inhibitor due to recurrent vulvovaginitis -Last eye exam: 08/18/2018, referred in Jul 2023, referred to [facility] -Last foot exam: 11/19/22, mildly impaired sensation -Last microalbumin test: 11/27/23 no microalbuminuria -Last lipid profile: 08/01/23 total cholesterol 226; triglyceride 158; HDL 46; LDL 149 -Follow up in 3 mo or sooner prn Assessment & Plan (12/01/2023 4:54 PM EST): -A1C 11.7%, slightly improved from 12.3% in Jul 2023 -Continue working on lifestyle modifications -Discussed about the importance of diabetes management -Patient missed appointment for CGM teaching; our pharmacist has generously agreed to see her after this appointment. -Continue checking BG 3-4 times daily. -Continue Metformin ER 1000 mg bid -continue Lantus 50 units once daily -continue NovoLog to 18-20 units each meal -continue dulaglutide -Treatment Hx: Trulicity was discontinued because she wants to become ; discontinued glipizide for a while because she was trying to become , restarted Trulicity because she decided not to become -Last eye exam: 08/18/2018, referred in Jul 2023, referred to [facility] -Last foot exam: 11/19/22, mildly impaired sensation -Last microalbumin test: 12/01/20 UACR 34 -Last lipid profile: 08/01/23 total cholesterol 226; triglyceride 158; HDL 46; LDL 149 -Follow up in 3 mo or sooner prn Assessment & Plan (08/02/2023 11:09 AM EDT): -A1C 12.3%, trending up -Continue working on lifestyle modifications -Discussed about the importance of diabetes management -Asked her to check BG 4-6 times daily. -Continue Metformin ER 1000 mg bid -continue Lantus 50 units once daily -continue NovoLog to 18-20 units each meal -continue Trulicity (will need to discuss control) -Treatment Hx: Trulicity was discontinued because she wants to become ; discontinued glipizide for a while because she was trying to become , restarted Trulicity because she decided not to become -Last eye exam: 08/18/2018, referred today -Last foot exam: 11/19/22, mildly impaired sensation -Last microalbumin test: 12/01/20 UACR 34 -Last lipid profile: 11/19/22 TC 180; TG 127; HDL 45; LDL 111 -Follow up in 3 mo or sooner prn Assessment & Plan (05/08/2023 5:54 AM EDT): -A1C 10.6% on 03/28/23, 9.1% on 02/05/23, worsening again -Continue working on lifestyle modifications -Discussed about the importance of diabetes management -Asked her to check BG 4-6 times daily. -Continue Metformin ER 1000 mg bid -continue Lantus 50 units once daily -continue NovoLog to 18-20 units each meal -restarted glipizide 5 mg bid -restarted Trulicity -Treatment Hx: Trulicity was discontinued because she wants to become ; discontinued glipizide for a while because she was trying to become -Last eye exam: 08/18/2018, pt was advised to schedule appt -Last foot exam: 11/19/22, mildly impaired sensation -Last microalbumin test: 12/01/20 UACR 34 -Last lipid profile: 11/19/22 TC 180; TG 127; HDL 45; LDL 111 Assessment & Plan (02/16/2023 7:28 PM EDT): -A1C 9.1% on 02/05/23, improving from 9.6% on 11/19/22 -Continue working on lifestyle modifications -Discussed about the importance of diabetes management -Asked her to check BG 4-6 times daily. -Continue Metformin ER 1000 mg bid -continue Lantus 50 units once daily -continue NovoLog to 18-20 units each meal -previously prescribed glipizide 5 mg bid. Started tapering off glipizide as she started prandial insulin. Discontinue since she wants to become -Treatment Hx: Trulicity was discontinued because she wants to become -Last eye exam: 08/18/2018, pt was advised to schedule appt -Last foot exam: 11/19/22, mildly impaired sensation -Last microalbumin test: 12/01/20 UACR 34 -Last lipid profile: 11/19/22 TC 180; TG 127; HDL 45; LDL 111 Assessment & Plan (2022 10:11 AM EST): -A1C 9.6% on 11/19/22, improved from 10.6% on 03/19/22 -Continue working on lifestyle modifications -Discussed about the importance of diabetes management -Asked her to check BG 4-6 times daily. -Continue Metformin ER 1000 mg bid -increase Trulicity to 3.0 mg weekly. -continue Lantus 20 units daily, (?adherence) -continue NovoLog to 15 units each meal -continue glipizide 5 mg bid. Started tapering off glipizide as she started prandial insulin, though poor adherence, and she wants to try GLP-1 agonist -Last eye exam: 08/18/2018, pt was advised to schedule appt -Last foot exam: 11/19/22, mildly impaired sensation -Last microalbumin test: 12/01/20 UACR 34 -Last lipid profile: 06/19/21: TC 209; TG 136; HDL 44; LDL 138 Resolved Problems Problem Noted Date Diagnosed Date Resolved Date Maxillary sinusitis 01/16/2024 03/07/20 24 Sore throat 01/16/2024 03/07/2024 Generalized abdominal pain 08/16/2023 0 06/07/2024 Breast pain 02/05/2023 05/06/2023 Assessment & Plan (02/05/2023 4:46 PM EDT): -Likely due to Hormones, bilateral pain test negative Nausea 02/05/2023 05/06/2023 Assessment & Plan (02/05/2023 4:46 PM EDT): test negative -possible gastroparesis -will evaluate for gastroparesis Lower urinary tract symptoms 10/22/2022 11/23/2022 Vulvovaginitis 10/22/2022 03/14/2025 Assessment & Plan (03/07/2024 7:04 PM EDT): - Recurrent - in a setting of uncontrolled diabetes mellitus - patient declines SGLT-2 inhibitor Assessment & Plan (11/23/2022 6:10 AM EST): - Recurrent - in a setting of uncontrolled DM Encounters Date Type Department Care Team Description 08/03/2025 1:40 PM EDT Office Visit [facility] [address] [place] [phone] Kathryn Schulz MD Right sided abdominal pain (Primary Dx); Cough, unspecified type 08/03/2025 Orders Only GENERIC EXTERNAL DATA DEPARTMENT Provider, Generic External Data 08/03/2025 Travel 07/27/2025 Telephone [facility] MED[facility] [address] [place] [phone] Carey Zambrano PharmD 07/27/2025 Telephone [facility] [address] [place] [phone] Lu Oreilly MD Appointment Request 07/26/2025 Refill [facility] [address] [place] [phone] Carey Zambrano, PharmAnnika Type 2 diabetes mellitus with hyperglycemia, with long-term current use of insulin (CMS/HCC) 06/28/2025 10:30 AM EDT Office Visit [address] [phone] Lu Oreilly MD Type 2 diabetes mellitus with hyperglycemia, with long-term current use of insulin (CMS/HCC) (Primary Dx); Essential hypertension; Metabolic dysfunction-associate d steatotic liver disease (MASLD); Hyperglycemia 06/28/2025 Orders Only [facility] [address] [place] [phone] Lu Oreilly MD 06/28/2025 Telephone [facility] [address] [place] [phone] Carey Zambrano PharmD 06/28/2025 Telephone [facility] [address] [place] [phone] Lu Oreilly MD Nurse Triage 06/28/2025 Travel 06/14/2025 Telephone [facility] OPTOMETRY [address] [place] [phone] Brianne Carmona, TIKA 06/07/2025 Telephone [facility] MED[facility]INE [address] [place] [phone] Lu Oreilly MD 06/01/2025 3:15 PM EDT Office Visit [facility] [place] [phone] Lu Oreilly MD Essential hypertension (Primary Dx); Type 2 diabetes mellitus with hyperglycemia, with long-term current use of insulin (CMS/HCC); Metabolic dysfunction-associate d steatotic liver disease (MASLD); Obstructive sleep apnea syndrome; PCOS (polycystic ovarian syndrome); Dyslipidemia; Class 3 severe obesity due to excess calories with serious comorbidity and body mass index (BMI) of 45.0 to 49.9 in adult 06/01/2025 Results Follow-Up [facility] [address] [place] [address] [place] [phone] Lu Oreilly MD POCT glucose manually resulted, POCT glycosylated hemoglobin (Hgb A1c) 06/01/2025 Travel 05/31/[address] [phone] Lu Oreilly MD chart prep 05/29/2025 Refill [facility] [address] [place] [phone] Lu Oreilly MD Influenza-like symptoms 05/21/2025 Telephone [facility] [address] [place] [phone] Lu Oreilly MD Prior Authorization ( PA: Steve) 05/19/2025 Refill [facility] [address] [place] [phone] Sarah Abreu ANP 05/19/2025 Refill [facility] [address] [place] [phone] Lu Oreilly MD Type 2 diabetes mellitus with hyperglycemia, with long-term current use of insulin (CMS/[facility]); Influenza-like symptoms 05/19/2025 Orders Only [facility] [address] [place] [phone] Lu Oreilly MD 05/03/2025 Refill [facility] [address] [place] [phone] Lu Oreilly MD Acute left-sided low back pain, unspecified whether sciatica present; Acute pain of left shoulder from Last 3 Months Immunizations Immunization Administration Dates Next Due DTaP 01/16/1990, 6,03/22/1986,03/17,01/28/1986 Hep A, Adult 03/08/2025 Hep B, adult 08/21/2000,06/29/1999,07/20/1990 Influenza injectable quadriv alent IIV4 with preservative 08/04/2015 Influenza injectable quadriv alent preservative free 12/14/2019,09/16/2017 Influenza, IIV3, injectable 09/04/2011 Influenza, Split (incl. kamini fied surface antigen) 08/19/2013,08/05/2012 MMR 09/04/2011,04/16/1997,03/16/1987 Moderna Covid-19 Vaccine 12+ 10/31/2022 Pneumococcal Conjugate PCV 20 12/08/2024 Pneumococcal Polysaccharide PPSV23 05/11/2011 Tdap 12/08/2024,01/04/2014 Varicella 11/11/1997 Family History Medical History Relation Name Comments Asthma Brother Hypertension Brother Intellectual Disability Brother Sleep apnea Brother psoriatic arthritis Brother Asthma Mother Diabetes Mother Relation Name Status Comments Brother Mother Social History Tobacco Use Types Packs/Day Years Used Date Smoking Tobacco: Never Passive Smoke Exposure: Never Smokeless Tobacco: Never Tobacco Cessation:Counseling Given: Not Answered Alcohol Use Standard Drinks/Week Comments Never 0 [...] Orientation Straight 09/10/2022 10 :17 AM EDT Last Filed Vital Signs Vital Sign Reading [...] Mass Index 47.46 08/03/2025 1:56 PM EDT Plan of Treatment Upcoming Encounters Date Type Department Care Team (Late st Contact Info) Description 08/09/2025 1:00 PM EDT Medication Management [facility] [address] [place] [address] Carey Zambrano, PharmD [address] [place], [place] [phone] 08/30/2025 1:45 PM EDT Office Visit [facility] [address] [place], [place] [phone] Lu Oreilly MD [address] [place], [place] [phone] Health Maintenance Due Date Last Done Comments Eye Exam 1995 HPV Vaccines (1 - 3-dose series) 2000 COVID-19 Vaccine (3 - 2024- season) 2025 10/31/2022, 10/01/2022 Influenza Vaccine (#1) 2025 , 09/16/2017, 08/04/2015, Additional history exists Diabetes: Hemoglobin A1C 09/01/2025 025, 03/08/2025, 12/08/2024, Additional history exists Hepatitis A Vaccines (2 of 2 - Risk 2-dose series) 09/07/2025 03/08/2025 Lipid Panel 09/17/2025 09/17/2024, 07/13, 2022, Additional history exists Diabetes: Foot Exam 12/08/2025 12/08/2024, 05/06/2023, 05/06/2023, Additional history exists SDOH Screening 12/08/2025 12/08/2024 Family Planning (PISQ) 12/14/2025 12/14/2024 Depression Screening 03/08/2026 03/08/2025, 03/08/20 25 Disability Screening 03/08/2026 03/08/2025 Alcohol/Substance Use Screening 06/01/2026 06/01/2025 Diabetes: Urine Protein Screening 06/28/2026 06/28/2025, 11/27/2023, 12/01/2020, Additional history exists Tobacco Screening 06/28/2026 06/28/2025 Cervical Cancer Screening 04/19/2027 HPV/Cotest 04/19/2027 04/19/2022, 03/16/2019 Pap Smear 04/19/2027 04/19/2022 DTaP/Tdap/Td Vaccines (7 - Td or Tdap) 12/08/2034 12/08/2024, 01/04/2014, 01/16/1990, Additional history exists Zoster Vaccines (1 of 2) 2035 RSV Patients and Patients Aged 60 years or older (1 - 1-dose 75+ series) 2060 Hepatitis B Vaccines Completed 08/21/2000, 06/29/1999, 07/20/1990 HIV Screening Completed 08/01/2023, 11/12, 12/14/2019 Hepatitis C Screening Completed 08/10/2023 , 08/01/2023, 12/01/2020, Additional history exists Pneumococcal Vaccine: Pediatrics (0 to 5 Years) and At-Risk Patients (6 to 49) Years Completed 12/08/2024, 05/11/2011 HIB Vaccines Aged Out No longer eligi ble based on patient's age to complete this topic IPV Vaccines Aged Out No longer eligi ble based on patient's age to complete this topic Meningococcal B Vaccine Aged Out No l onger eligible based on patient's age to complete this topic Meningococcal Vaccine Aged Out No ilia alexa eligible based on patient's age to complete this topic RSV under 20 months Aged Out No longe r eligible based on patient's age to complete this topic Rotavirus Vaccines Aged Out No longer eligible based on patient's age to complete this topic Procedures Procedure Name Priority Date/Time Associated Diagnosis Comments URINALYSIS, COMPLETE, WITH REFLEX TO CULTURE Routine 08/03/2025 3:55 PM EDT LIPASE Routine 08/03/2025 3:04 PM EDT C-REACTIVE PROTEIN Routine 08/03/2025 3: 04 PM EDT MAGNESIUM Routine 08/03/2025 3:04 PM EDT COMPREHENSIVE METABOLIC PANEL Routine 08/03/2025 3:04 PM EDT CBC WITH AUTO DIFFERENTIAL Routine 08/03/2025 3:04 PM EDT POC CAUSEY ID NOW STREP A Routine 08/03/2025 2:16 PM EDT Cough, unspecified type POCT INFLUENZA B (ID NOW RAPID MOLECULAR) Routine 08/03/2025 2:07 PM EDT Cough, unspecified type POCT INFLUENZA A (ID NOW RAPID MOLECULAR) Routine 08/03/2025 2:06 PM EDT Cough, unspecified type POCT RAPID COVID ANTIGEN Routine 08/03/2025 2:02 PM EDT Cough, unspecified type ALBUMIN, RANDOM URINE W/CREATININE Routine 06/28/2025 11:31 AM EDT Type 2 diabetes mellitus with hyperglycemia, with long-term current use of insulin ([facility]) POCT URINALYSIS DIPSTICK Routine 06/28/2025 11:26 AM EDT Type 2 diabetes mellitus with hyperglycemia, with long-term current use of insulin ([facility]) CULTURE, URINE, ROUTINE Routine 06/28/2025 11:26 AM EDT POCT GLUCOSE Routine 06/28/2025 11:01 AM EDT Type 2 diabetes mellitus with hyperglycemia, with long-term current use of insulin ([facility]) POCT GLYCOSYLATED HEMOGLOBIN (HGB A1C) Routine 06/01/2025 3:16 PM EDT Type 2 diabetes mellitus with hyperglycemia, with long-term current use of insulin ([facility]) POCT GLUCOSE Routine 06/01/2025 3:16 PM EDT Type 2 diabetes mellitus with hyperglycemia, with long-term current use of insulin ([facility]) LIPID PANEL WITH REFLEX TO DIRECT LDL Routine 09/17/2024 3:15 PM EST Type 2 diabetes mellitus with hyperglycemia, with long-term current use of insulin ([facility]) Dyslipidemia HEPATITIS PANEL, GENERAL Routine 08/10/2023 2:43 PM EDT HIV ANTIBODY/ANTIGEN ([facility]) Routine 08/01/2023 12:10 PM EDT THINPREP IMAGING PAP AND HPV MRNA E6/E7, WITH CT/NG, TRICHOMONAS Routine 04/19/2022 10:07 AM EDT from Last 3 Months or Most Recently Relevant to Health Maintenance Results * (ABNORMAL) Urinalysis, Complete, with Reflex to Culture (08/03/2025 3:55 PM EDT) Color Urine Yellow [facility] Appearance Urine Clear [facility] PH 5.5 5.0 - 9.0 [facility] Glucose Urine UA >=1000(A) Negative mg/dL [facility] Urine Blood Negative Negative [facility] Specific [place] - Urine >=1.030(H) 1.005 - 1.025 [facility] Urine Protein Trace Neg-Trace mg/dL [facility] Urine Ketones Negative Negative mg/dL [facility] Nitrite Urine Negative Negative [facility] [facility] Leukocyte Esterase Urine Negative Negative [facility] RBC Urine 0-2 0 - 2 /HPF [facility] Urine WBC 0-5 0 - 5 /HPF [facility] Urine Squamous Epithelial Cell 6-10 0 - 2 /HPF [facility] Urine Bacteria Trace None Seen [facility] Hyaline Casts, Urine 0-2 0 - 2 /LPF [facility] Urine Yeast Present [facility] 08/03/2025 3:55 PM EDT 08/03/2025 4:03 PM EDT Narrative [facility] - 08/03/2025 4:26 PM EDT Urine, Clean Catch us Generic External Data Provider LAB URINE ORDERAB LES Final Result [facility] [address] [place] [address] [phone] * CBC auto differential (08/03/2025 3:04 PM EDT) White Blood Count 8.7 4.8 - 10.8 X10*3/uL [facility] Red Blood Count 4.87 4.20 - 5.50 X10*6/uL [facility] Hemoglobin 14.5 12.0 - 16.0 g/dl [facility] Hematocrit 42.4 37.0 - 47.0 % [facility] Mean Corpuscular Volume 87.1 80.0 - 98.0 fL [facility] Mean Corpuscular Hemoglobin 29.8 27.0 - 33.0 pg [facility] Mean Corpuscular HGB Conc 34.2 31.0 - 35.0 g/dl [facility] Red Cell Distribution Width 13.3 11.0 - 16.0 % [facility] Platelet Count 231 160 - 400 X10*3/uL [facility] Mean Platelet Volume 10.2 9.4 - 12.3 fL [facility] Neutrophils Percent Auto 62.7 45 - 73 % [facility] Imm Gran Pct Auto 0.2 0.0 - 0.4 % [facility] Lymphocytes Percent Auto 29.9 20 - 40 % [facility] Monocytes Percent Auto 6.1 2 - 11 % [facility] Eosinophils Percent Auto 0.8 0 - 4 % [facility] Basophils Percent Auto 0.3 0 - 2 % [facility] NRBC Pct Auto 0.0 0.0 - 0.2 /100WBC [facility] Neutrophils Absolute Auto 5.5 2.0 - 8.3 x10*3/uL [facility] Imm Gran Abs Auto 0.02 0.00 - 0.03 X10*3/uL [facility] Lymphocytes Absolute Auto 2.6 1.2 - 4.9 X10*3/uL [facility] Monocytes Absolute Auto 0.5 0.1 - 1.2 X10*3/uL [facility] Eosinophils Absolute Auto 0.1 0.0 - 0.4 X10*3/uL [facility] Basophils Absolute Auto 0.0 0.0 - 0.2 X10*3/uL [facility] NRBC Abs Auto 0.000 0.0 - 0.012 X10*3/uL [facility] 08/03/2025 3:04 PM EDT 08/03/2025 3:11 PM EDT Generic External Data Provider LAB BLOOD ORDERAB LES Final Result Performing Organization Address [facility]/ZIP Co de Phone Number [facility] [address] [place] [phone] * (ABNORMAL) C-reactive Protein (08/03/2025 3:04 PM EDT) C Reactive Protein 5.57(H) < or = 0.50 mg/dL [facility] 08/03/2025 3:04 PM EDT 08/03/2025 3:11 PM EDT Generic External Data Provider LAB BLOOD ORDERAB LES Final Result Performing Organization Address [facility] Co de Phone Number [facility] [address] [place] [phone] * Magnesium (08/03/2025 3:04 PM EDT) Magnesium 1.6 1.6 - 2.6 mg/dL [facility] 08/03/2025 3:04 PM EDT 08/03/2025 3:11 PM EDT us Generic External Data Provider LAB BLOOD ORDERAB LES Final Result Performing Organization Address [facility] Co de Phone Number [facility] [address] [place] [phone] * Lipase (08/03/2025 3:04 PM EDT) Lipase 20 8 - 78 U/L [facility] 08/03/2025 3:04 PM EDT 08/03/2025 3:11 PM EDT us Generic External Data Provider LAB BLOOD ORDERAB LES Final Result [facility] [address] [place] [address] [phone] * (ABNORMAL) Comprehensive Metabolic Panel (08/03/2025 3:04 PM EDT) Sodium 137 135 - 145 mmol/L [facility] Potassium 3.8 3.3 - 5.1 mmol/L [facility] Chloride 106 96 - 108 mmol/L [facility] Carbon Dioxide 23 22 - 29 mmol/L [facility] Anion Gap 12 12 - 20 [facility] Urea Nitrogen (BUN) 10 9 - 16 mg/dL [facility] Creatinine, Serum 0.62 0.5 - 1.4 mg/dL [facility] Creatinine Clr Calc Pharmacy 142.7 [facility] Comment:Provided height and weight: 154.94 cm,113.852 kg.eGFR (calculated from the MDRD study equation) and eCrCl(calculated from the Cockcroft-Gault equation) are based ondifferent parameters and may not yield comparable results.If eCrCl result is absurd, please check patient'sheight/weight. Estimated Glomerular Filt Rate >60 [facility] Comment:Chronic Kidney Disea se: Estimated GFR < 60 mL/min/[id number] Kidney Disease: Estimated GFR < 15 mL/min/1.73m2 Glucose 327(H) 60 - 115 mg/dL [facility] Calcium 9.1 8.4 - 10.2 mg/dL [facility] Bilirubin, Total 0.4 0.0 - 1.0 mg/dL [facility] Aspartate Amino Transferase 23 5 - 31 U/L [facility] Alanine Aminotransferase 37(H) 0 - 31 U/L [facility] Total Protein 7.5 6.5 - 8.0 g/dL [facility] Albumin Level 4.0 3.5 - 5.0 g/dL [facility] Alkaline Phosphatase 136(H) 39 - 117 U/L [facility] 08/03/2025 3:04 PM EDT 08/03/2025 3:11 PM EDT us Generic External Data Provider LAB BLOOD ORDERAB LES Final Result Performing Organization Address [facility] Co de Phone Number [facility] [address] [place] [phone] [phone] * POCT Rapid Strep A CAUSEY ID NOW (08/03/2025 2:16 PM EDT) Rapid Strep A Screen Negative Negative, None Detected QC Media Lot # [id number] Lot# Expiration Date Swab 08/03/2025 2:16 PM EDT Kathryn Pablo MD POINT OF CARE TEST EN TER/EDIT ORDERABLES Final Result * POCT Rapid Influenza B CAUSEY ID NOW (08/03/2025 2:07 PM EDT) Influenza B Negative Negative, Indeterminate [facility] QC Media Lot # [id number] [facility] Lot# Expiration Date [facility] Swab 08/03/2025 2:07 PM EDT us Kathryn Pablo MD POINT OF CARE TEST EN TER/EDIT ORDERABLES Final Result Performing Organization Address [facility]/ZIP Co de Phone Number [facility] [address] [place] [address] [phone] * POCT Rapid Influenza A CAUSEY ID NOW (08/03/2025 2:06 PM EDT) Influenza A Negative Negative, Indeterminate [facility] QC Media Lot # [id number] [facility] Lot# Expiration Date [facility] Swab 08/03/2025 2:06 PM EDT us Kathryn Pablo MD POINT OF CARE TEST EN TER/EDIT ORDERABLES Final Result Performing Organization Address [facility]/ZIP Co de Phone Number [facility] [address] [place] [phone] * POCT Rapid Covid-19 BinaxNOW (08/03/2025 2:02 PM EDT) Rapid COVID Ag Negative QC Media Lot # [id number] Lot# Expiration Date Swab 08/03/2025 2:02 PM EDT us Kathryn Pablo MD POINT OF CARE TEST EN TER/EDIT ORDERABLES Final Result * Albumin, Random Urine W/Creatinine (06/28/2025 11:31 AM EDT) Creatinine, Urine 41.12 mg/dL [facility] Microalbumin Urine 7.0 mg/L [facility] Microalbum Creatinine Ratio Ur 17.0 <30 ug/mg cr [facility] Comment:Albumin/Creatinine R atio Reference Ranges: Normal: < 30 ug/mg creatinine Microalbuminuria: 30 - 300 ug/mg creatinineClinical Albuminuria: > 300 ug/mg creatinine Urine 06/28/2025 11:3 1 AM EDT 06/28/2025 6:03 PM EDT us Lu Oreilly MD LAB URINE ORDERABLES Final Resul t Performing Organization Address City/[facility]/ZIP Co de Phone Number [facility] [address] [place] [phone] * (ABNORMAL) POCT Urinalysis (06/28/2025 11:26 AM EDT) Color, UA Yellow Clarity, UA Clear Glucose, UA 3+ 500+++ Bilirubin, UA Negative Ketones, UA Positive Spec Grav, UA 1.015 Blood, UA Negative Negative, None Detected pH, UA 5.5 Protein, UA Negative Urobilinogen, UA 0.2 Leukocytes, UA Negative Negative, Rare, Trace Nitrite, UA Negative Negative, None Detected Appearance, UA clear QC Media Lot # [id number] Lot# Expiration Date Urine 06/28/2025 11:2 6 AM EDT Lu Oreilly MD POINT OF CARE TEST ENTER/EDIT OR DERABLES Final Result * Culture, Urine, Routine (06/28/2025 11:26 AM EDT) Urine Urine specimen obtained by clean catch procedure / Unknown 06/28/2025 11:26 AM EDT 06/28/2025 6:21 PM EDT Comment:UACC Narrative [facility] - 06/30/2025 10:38 AM EDT Urine Culture Report Result Urine Culture 10,000 to 50,000 cfu/ml Urine Culture Mixed bacterial nyla characteristic of Urine Culture urogenital contamination. Specimen Source: Urine clean catch Lu Oreilly MD LAB MICROBIOLOGY - GENERAL ORDER JOSE Final Result [facility] [address] [place] [phone] * (ABNORMAL) POCT Glucose (06/28/2025 11:01 AM EDT) Only the most recent of2 resultswithin the time period is included. Glucose Blood, POC 404(A) 60 - 200 mg/dL QC Media Lot # [id number] Lot# Expiration Date 961 Blood Capillary blood specimen / Unknown 06/28/2025 11:01 AM EDT us Lu Oreilly MD POINT OF CARE TEST ENTER/EDIT OR DERABLES Final Result * (ABNORMAL) POCT glycosylated hemoglobin (Hgb A1c) (06/01/2025 3:16 PM EDT) Hemoglobin A1C 12.8(A) 4.0 - 5.7 % QC Media Lot # [id number] Lot# Expiration Date [id number] Blood Capillary blood specimen / Unknown 06/01/2025 3:16 PM EDT Lu Oreilly MD POINT OF CARE TEST ENTER/EDIT OR DERABLES Final Result * (ABNORMAL) Lipid Panel with Reflex to Direct LDL (09/17/2024 3:15 PM EST) Triglycerides 250(H) <150 mg/dL [facility] Comment:Desirable Triglyceri de: less than 150 mg/dLBorderline High Triglyceride 150-199 mg/dLHigh Triglyceride: 200-499 mg/dLVery High Triglyceride: greater than or equal to 5OO mg/dL Cholesterol 208(H) <200 mg/dL [facility] Comment:Desirable Cholestero l: less than 200 mg/dLBorderline High Cholesterol: 200-239 mg/dLHigh Cholesterol: greater than 239 mg/dL LDL Cholesterol Calculated 110(H) <100 mg/dL [facility] Comment:Desirable LDL: less than 100 mg/dLNear Optimal/Above Optimal LDL: 110- 129 mg/dLBorderline High LDL: 130-159 mg/dLHigh LDL: 160-189 mg/dLVery High LDL: greater than or equal to 190 mg/dL HDL Cholesterol 48 >40 mg/dL [facility] Comment:Desirable HDL: great er than 40 mg/dL Note: This HDL assay may give artificially low results in patients with liver disease. Blood 09/17/2024 3:15 PM EST 09/17/2024 4:00 PM EST Lu Oreilly MD LAB BLOOD ORDERABLES Final Resul t [facility] [address] [place] [phone] * Hepatitis Panel, General (08/10/2023 2:43 PM EDT) Hepatitis A IgM Nonreactive Nonreactive [facility] Comment:IgM antibodies to MELCHOR V not detected; does not exclude earlyacute or recovered HAV infection. ~Hepatitis B Surface Antibody NONREACTIVE Nonreactive [facility] Comment:Nonreactive: < 8.00 mIU/mL Hepatitis B Core Antibody Nonreactive Nonreactive [facility] Hepatitis C Antibody Nonreactive Nonreactive [facility] Comment:Antibodies to HCV no t detected; does not exclude early acuteHCV infection. Hepatitis B Surface Ag Negative Negative [facility] 08/10/2023 2:43 PM EDT 08/10/2023 2:45 PM EDT [facility] External Provider LAB BLO OD ORDERABLES Final Result Performing Organization Address [facility] de Phone Number [facility] [address] [place] [phone] * HIV Ab/Ag ([facility]) (08/01/2023 12:10 PM EDT) [facility] HIV AB/AG Nonreactive Nonreactive [facility] Comment:HIV-1 p24 Ag and/or HIV-1/HIV-2 Ab not detected.A test result that is nonreactive does not exclude thepossibility of exposure to or infection with HIV-1 and/orHIV-2. Nonreactive results in this assay for individualswith prior exposure to HIV-1 and/or HIV-2 may be due toantigen and antibody levels that are below the limit ofdetection of this assay.[employer] HIV Ag/Ab Combo assay result andsupplemental assay results should be interpreted inconjunction with the patient's clinical presentation,history and other laboratory results. If the results areinconsistent with clinical evidence, additional testing issuggested to confirm the result. 08/01/2023 12:1 0 PM EDT 08/01/2023 1:00 PM EDT Lu Oreilly MD LAB BLOOD ORDERABLES Final Resul t Performing Organization Address [facility] Co de Phone Number [facility] [address] [place] [address] [phone] * THINPREP TIS PAP AND HPV mRNA E6/E7, CT/NG, TRICH (04/19/2022 10:07 AM EDT) Chlamydia trachomatis RNA, TMA, Urogenital NOT DETECTED NOT DETECTED [facility] Clinical Information: None given [facility] COMMENT SEE COMMENT [facility] Comment: The analytical performance characteristics of this assay, when used to test SurePath(TM) specimens have been determined by [employer]. The modifications have not been cleared or approved by the FDA. This assay has been validated pursuant to the CLIA regulations and is used for clinical purposes. For additional information, please refer to https://[employer]s/faq/BZD313 (This link is being provided for information/ educational purposes only.) COMMENT SEE COMMENT [facility] Comment: EXPLANATORY NOTE: The Pap is a screening test for cervical cancer. It is not a diagnostic test and is subject to false negative and false positive results. It is most reliable when a satisfactory sample, regularly obtained, is submitted with relevant clinical findings and history, and when the Pap result is evaluated along with historic and current clinical information. COMMENT: This Pap test has been evaluated with computer assisted technology. [facility]book [facility] Cleaning And Maintenance Worker: SEE COMMENT [facility] Comment: SL, CT(ASCP) CT screening location: [address] [address] HPV nRNA E6/E7 Not Detected Not Detected [facility] Comment: Methodology: Mechanical Design Engineer-Mediated Amplification This assay detects E6/E7 viral messenger RNA (mRNA) from 14 high-risk HPV types (16,18,31,33,35,39,45,51,52,56,58,59,66,68). Cervical sources are required for HPV testing. If a vaginal source from a patient who has had a total hysterectomy with removal of cervix was submitted, please contact the testing laboratory for alternative testing options. For additional information, please refer to http://education.[employer]/faq/YCP504c1 (This link if provided for information/ educational purposes only.) Interpretation/Re sult: Negative for intraepithelial lesion or malignancy. [facility] LMP: NONE GIVEN [facility] Neisseria gonorrhoeae RNA, TMA, Urogenital NOT DETECTED NOT DETECTED [facility] Prev. BX: NONE [facility]IVEN [facility] Prev. PAP: NONE [facility]IV[facility] SOURCE: None given [facility] Statement Of Adequacy: SEE COMMENT [facility] Comment: Satisfactory for evaluation. Endocervical/transformation zone component present. Age and/or menstrual status not provided Trichomonas vaginalis, QL, TMA, PAP Vial NOT DETECTED NOT DETECTED [facility] Comment: The analytical performance characteristics of this assay have been determined by [employer]. The modifications have not been cleared or approved by the FDA. This assay has been validated pursuant to the CLIA regulations and is used for clinical purposes. For additional information, please refer to http://education.[employer]/ faq/Trichomonastma (This link is being provided for information/ educational purposes only.) 04/19/2022 10:0 7 AM EDT us Lu Oreilly MD LAB PATHOLOGY ORDERABLES Final R esult [facility] [address] from Last 3 Months or Most Recently Relevant to Health Maintenance Insurance [facility] C3 Care Teams Lumber Stacker Driver Relationship Specialty Start Date End Date Lu Oreilly MD [address] [place] [phone] PCP - General Family Medicine 10/23/12 Carey Zambrano, PharmD [address] [place] [address] Pharmacist Pharmacy 06/28/25
--- OUTSIDE RECORDS SUMMARY | 2025-08-03 18:09 | XMS_ITS | Encounter Summary ---
Author Organization [employer] Address [address] [facility] 7 [place] [address] Care Team Providers Care Quarrying Manager Name Role Phone Lu Oreilly MD Primary Care Provider [phone] Carey Zambrano PharmD Unavailable [phone] Reason for Visit * Reason Comments Med Refill Encounter Details Date Type Department Care Team (Late st Contact Info) Description 05/29/2025 Refill [facility] [address] [place] [address] Lu Oreilly MD [address] [place], [place] [phone] Influenza-like symptoms Social History Tobacco Use Types Packs/Day Years [...] Description 08/09/2025 1:00 PM EDT Medication Management [facility] [address] [place] [phone] Carey Zambrano, PharmD [address] [place] [phone] 08/30/2025 1:45 PM EDT Office Visit [facility] [address] [place] [phone] Lu Oreilly MD [address] [place] [phone] documented as of this encounter Visit Diagnoses Diagnosis Influenza-like symptoms Other general symptoms documented in this encounter Additional Health Concerns Assessment Noted Time PHQ-9 Depression Total Score: 5 03/08/20 25 3:08 PM EDT documented as of this encounter Care Teams Quarrying Manager Relationship Specialty Start Date End Date Lu Oreilly MD [address] [place] [phone] PCP - General Family Medicine 10/23/12 Carey Zambrano, KendellD [address] [place] [phone] Pharmacist Pharmacy 06/28/25 documented as of this encounter
--- OUTSIDE RECORDS SUMMARY | 2025-08-03 18:09 | XMS_ITS | Encounter Summary ---
Author Organization [employer] Address [address] [facility] 7 [place] [address] Care Team Providers Care Hide Splitter Name Role Phone Lu Oreilly MD Primary Care Provider [phone] Carey Zambrano PharmD Unavailable [phone] Reason for Visit * Reason Onset Date Comments Appointment Request 11/12/2023 Encounter Details Date Type Department Care Team (Late st Contact Info) Description 11/12/2023 Telephone [facility] [address] [place] [address] Lu Oreilly MD [address] [place], [place] [phone] Appointment Request Social History Tobacco Use Types Packs/Day Years Used Date Smoking Tobacco: Never Smokeless Tobacco: Never PHQ-2 Answer Date Recorded Patient Health Questionnaire-2 Score 0 2022 Housing Stability Answer Date Recorded What is your housing situation today? I have tristan raphael 08/26/[address] you li ve. Do you have problems with any of the following? None of the above 08/26/2023 Food Insecurity Answer Date Recorded Within the past 12 months, y ou worried that your food would run out before you got money to buy more: Never True 08/26/2023 Within the past 12 months,th e food you bought just didn't last and you didn't have enough money to get more: Never True Transportation Answer Date Recorded In the past 12 months, has l ack of transportation kept you from medical appts, meetings, work or from getting things needed for daily living? No 08/26/2023 Utilities Answer Date Recorded In the past 12 months, has t he electric, gas, oil or water company threatened to shut off services in your home? No 08/26/2023 Depression Answer Date Recorded Patient Health Questionnaire-2 Score 0 2022 Comments Unknown Sex and Gender Information Value Date Recorded Sex Assigned at Female 09/10/2022 10:17 AM EDT Legal Sex Female 10:17 AM EDT Gender Identity Female 09/10/2022 10:17 AM EDT Sexual Orientation Straight 09/10/2022 10 :17 AM EDT documented as of this encounter Miscellaneous Notes * Telephone Encounter - Milana De Jesus - 11/12/2023 11:02 AM EST Tc from pt requesting to r/s appt with provider on 10/28/2023 for a follow up. Please contact pt @ [phone] documented in this encounter Plan of Treatment Upcoming Encounters Date Type Department Care Team (Late st Contact Info) Description 08/09/2025 1:00 PM EDT Medication Management [facility] [address] [place] [phone] Carey Zambrano, PharmD [address] [place] [phone] 08/30/2025 1:45 PM EDT Office Visit [facility] [address] [place] [phone] Lu Oreilly MD [address] [place] [phone] documented as of this encounter Visit Diagnoses Not on filedocumented in this encounter Care Teams Hide Splitter Relationship Specialty Start Date End Date Lu Oreilly MD [address] [place] [phone] PCP - General Family Medicine 10/23/12 Carey Zambrano, PharmD [address] [place] [phone] Pharmacist Pharmacy 06/28/25 documented as of this encounter
--- OUTSIDE RECORDS SUMMARY | 2025-08-03 18:09 | XMS_ITS | Encounter Summary ---
Author Organization [employer] Address [address] [facility] [address] [place] [address] Care Team Providers Care Scientific Informatics Analyst Name Role Phone Lu Oreilly MD Primary Care Provider [phone] Carey Zambrano PharmD Unavailable [phone] Encounter Details Date Type Department Care Team (Late st Contact Info) Description 11/12/2024 Orders Only [facility] [address] [place] [address] Lu Oreilly MD [address] [place] [address] Social History Tobacco Use Types Packs/Day Years [...] Description 08/09/2025 1:00 PM EDT Medication Management [facility] [address] [place] [phone] Carey Zambrano PharmD [address] [place] [phone] 08/30/2025 1:45 PM EDT Office Visit [facility] [address] [place] [phone] Lu Oreilly MD [address] [place] [phone] documented as of this encounter Visit Diagnoses Not on filedocumented in this encounter Additional Health Concerns Assessment Noted Time PHQ-9 Depression Total Score: 3 11/27/19 24 9:48 AM EST documented as of this encounter Care Teams Scientific Informatics Analyst Relationship Specialty Start Date End Date Lu Oreilly MD [address] [place] [phone] PCP - General Family Medicine 10/23/12 Carey Zambrano PharmD [address] [place] [address] Pharmacist Pharmacy 06/28/25 documented as of this encounter
--- OUTSIDE RECORDS SUMMARY | 2025-08-03 18:09 | XMS_ITS | Clinical Summary ---
Author Organization [address] [place] [address] [place] [phone] Phone Care Team Providers Care Working Supervisor Name Role Phone Lu Oreilly MD Primary Care Provider [phone] Allergies Active Allergy Reactions Criticality Noted Date Comments Haloperidol Swelling 02/11/2024 Facial paralysis Sertraline Swelling 02/11/2024 Medications metFORMIN (GLUCOPHAGE) 1,000 mg tablet Take 1 tablet (1,000 mg total) by mouth 1 (one) time each day with breakfast. 04/19/2025 Active loratadine (CLARITIN) 10 mg tablet Take 1 tablet (10 mg total) by mouth daily. 12/05/2024 Active QUEtiapine (SEROquel) 200 mg tablet Take 1 tablet (200 mg total) by mouth at bedtime. Active buPROPion XL (WELLBUTRIN XL) 150 mg 24 hr tablet Take 1 tablet (150 mg total) by mouth daily. Active Active Problems Problem Noted Date Diagnosed Date Class 3 severe obesity with body mass index (BMI) of 45.0 to 49.9 in adult (CMS/HCC V24, CMS/HCC V28) 01/04/2025 Encounters Date Type Department Care Team Description 06/15/2025 1:30 PM EDT Office Visit Bariatric Surgery - [address] [place] [phone] Patti Marquis MD Class 3 severe obesity with body mass index (BMI) of 45.0 to 49.9 in adult (CMS/HCC V24, CMS/HCC V28) (Primary Dx) from Last 3 Months Social History Tobacco Use Types Packs/Day Years Used Date Smoking Tobacco: Never Smokeless Tobacco: Never Alcohol Use Standard Drinks/Week Comments Never 0 (1 standard drink = 0.6 oz pur e alcohol) Comments Unknown Sex and Gender Information Value Date Recorded Sex Assigned at Not on file Legal Sex Female 8:34 PM EST Gender Identity Not on file Sexual Orientation Not on file Obstetrics History Last Filed Vital Signs Vital Sign Reading Time Taken Comments Blood Pressure 123/82 06/15/2025 1:30 PM EDT Pulse 91 06/15/2025 1:30 PM EDT Temperature 36.6 C (97.8 F) 06/15/2025 1:30 PM EDT Respiratory Rate - - Oxygen Saturation - - Inhaled Oxygen Concentration - - Weight 116 kg (256 lb) 06/15/2025 1:30 PM EDT Height 154.9 cm (5' 1 ) 06/15/2025 1:30 PM EDT Body Mass Index 48.37 06/15/2025 1:30 PM EDT Plan of Treatment Upcoming Encounters Date Type Department Care Team (Late st Contact Info) Description 09/14/2025 12:30 PM EST Nutrition Bariatric Surgery - [address] [phone] Lilo Malave, RD [address] [phone] 12/16/2025 1:45 PM EST Office Visit Bariatric Surgery [address] [phone] Patti Marquis MD [address] [place] [phone] Health Maintenance Due Date Last Done Comments Diabetes: Annual Foot Exam 1995 Diabetes: Annual Retina Eye Exam 1995 Cervical Cancer Screening: Pap Smear 2006 HIV Screening 12/06/2023 Hepatitis C Screening 12/06/2023 Social Influencers of Health Screening 12/06/2023 Depression Screening 11/11/2024 Diabetes: Annual GFR (Glomerular Filtration Rate) 02/02/2025 02/03/2024 Diabetes: Annual Urine Albumin-Creatinine Ratio (uACR) 06/16/2025 Hypertension/CHF/CAD Annual BMP Blood Test 06/16/2025 02/03/2024 COVID-19 Vaccine ( season) 2025 10/31/2022, 10/01/2022 Influenza Vaccine (#1) 2025 , 09/16/2017, 08/04/2015, Additional history exists Hepatitis A Vaccines (2 of 2 - Risk 2-dose series) 09/07/2025 03/08/2025 Diabetes: Blood Sugar Control Test (HGBA1C) 12/02/2025 06/01/2025, 02/03/2024 Cholesterol Screening (Lipid Panel) 02/02/2029 02/03/2024 DTaP,Tdap,and Td Vaccines (7 - Td or Tdap) 12/08/2034 12/08/2024, 01/04/2014, 01/16/1990, Additional history exists RSV Immunization Adult Patients (1 - 1-dose 75+ series) 2060 Varicella Vaccines Aged Out 11/11/1997 No longer eligible based on patient's age to complete this topic Hepatitis B Vaccines Completed 08/21/2000, 06/29/1999, 07/20/1990 MMR Vaccines Completed 09/04/2011, 04/1997, 03/16/1987 Pneumococcal Vaccine: Pediatrics (0 to 5 Years) and At-Risk Patients (6 to 49 Years) Completed 12/08/2024, 05/11/2011 HIB Vaccines Aged Out No longer eligi ble based on patient's age to complete this topic HPV Vaccines Aged Out No longer eligi ble based on patient's age to complete this topic IPV Vaccines Aged Out No longer eligi ble based on patient's age to complete this topic Meningococcal ACWY Vaccine Aged Out N o longer eligible based on patient's age to complete this topic Meningococcal B Vaccine Aged Out No l onger eligible based on patient's age to complete this topic RSV Immunization Patients Under 20 months Aged Out No longer eligible based on patient's age to complete this topic Procedures Procedure Name Priority Date/Time Associated Diagnosis Comments HM ANNUAL BMP BLOOD TEST Routine 02/03/2024 HEMOGLOBIN A1C Routine 02/03/2024 LIPID PANEL Routine 02/03/2024 from Last 3 Months or Most Recently Relevant to Health Maintenance Results * Annual BMP Blood Test (02/03/2024) Pathologist [facility] Annual BMP Blood Test abstracted [facility] Provider HEALTH MAINTENANCE Final Result * (ABNORMAL) Hemoglobin A1c (02/03/2024) [facility] Hemoglobin A1C 10.5(A) <=6.5 % Blood Venous blood specimen / Unknown [facility] Provider LAB BLOOD ORDERABLES Elin l Result * (ABNORMAL) Lipid panel (02/03/2024) [facility] LDL/HDL Ratio 5(A) 0 - 4 Triglycerides 177(A) 0 - 150 mg/dL Cholesterol 219(A) 0 - 200 mg/dL HDL 46 >=40 mg/dL LDL Cholesterol 138(A) 0 - 100 mg/dL Blood Venous blood specimen / Unknown [facility] Provider LAB BLOOD ORDERABLES Elin l Result from Last 3 Months or Most Recently Relevant to Health Maintenance Insurance [place] Care Teams Working Supervisor Relationship Specialty Start Date End Date Lu Oreilly MD [address] [place] [phone] PCP - General Family Medicine 06/10/25
--- OUTSIDE RECORDS SUMMARY | 2025-08-03 18:09 | XMS_ITS | Encounter Summary ---
Author Organization [employer] Address [address] [facility] 7 [place] [address] Care Team Providers Care Oral Hygienist Name Role Phone Lu Oreilly MD Primary Care Provider [phone] Carey Zambrano PharmD Unavailable [phone] Reason for Visit * Reason Onset Date Comments Appointment Request 07/27/2025 Encounter Details Date Type Department Care Team (Late st Contact Info) Description 07/27/2025 Telephone [facility] [address] [place] [address] Lu Oreilly MD [address] [place] [address] Appointment Request Social History Tobacco Use Types [...] encounter Miscellaneous Notes * Telephone Encounter - Jude Barth - 07/27/2025 12:07 PM EDT Tc from pt requesting to reschedule CDTM appt today. Please contact pt at [phone]. (Bruneian Speaker) documented in this encounter Plan of Treatment Upcoming Encounters Date Type Department Care Team (Late st Contact Info) Description 08/09/2025 1:00 PM EDT Medication Management [facility] [address] [place] [phone] Carey Zambrano PharmD [address] [place] [address] 08/30/2025 1:45 PM EDT Office Visit [facility] [address] [place], [place] [phone] Lu Oreilly MD [address] [place] [phone] documented as of this encounter Visit Diagnoses Not on filedocumented in this encounter Additional Health Concerns Assessment Noted Time PHQ-9 Depression Total Score: 5 03/08/20 25 3:08 PM EDT documented as of this encounter Care Teams Oral Hygienist Relationship Specialty Start Date End Date Lu Oreilly MD [address] [place] [phone] PCP - General Family Medicine 10/23/12 Carey Zambrano, KendellD [address] [place] [phone] Pharmacist Pharmacy 06/28/25 documented as of this encounter
--- OUTSIDE RECORDS SUMMARY | 2025-08-03 18:09 | XMS_ITS | Encounter Summary ---
Author Organization [employer] Address [address] [facility] 7t [place] [address] Care Team Providers Care Oil Pipe Inspector Helper Name Role Phone Lu Oreilly MD Primary Care Provider [phone] Carey Zambrano PharmD Unavailable [phone] Reason for Visit * Reason Onset Date Comments Nurse Triage 08/15/2023 Encounter Details Date Type Department Care Team (Late st Contact Info) Description 08/15/2023 Telephone [facility] [address] [place] [address] Lu Oreilly MD [address] [place] [address] Nurse Triage Social History Tobacco Use Types Packs/Day Years Used Date Smoking Tobacco: Never Smokeless Tobacco: Never PHQ-2 Answer Date Recorded Patient Health Questionnaire-2 Score 0 2022 Housing Stability Answer Date Recorded What is your housing situation today? I have tristan raphael 08/19/[address] you li ve. Do you have problems with any of the following? None of the above 08/19/2023 Food Insecurity Answer Date Recorded Within the past 12 months, y ou worried that your food would run out before you got money to buy more: Never True 08/19/2023 Within the past 12 months,th e food you bought just didn't last and you didn't have enough money to get more: Never True 07/2023 Transportation Answer Date Recorded In the past 12 months, has l ack of transportation kept you from medical appts, meetings, work or from getting things needed for daily living? No 08/19/2023 Utilities Answer Date Recorded In the past 12 months, has t he electric, gas, oil or water company threatened to shut off services in your home? No 08/19/2023 Depression Answer Date Recorded Patient Health Questionnaire-2 Score 0 2022 Comments Unknown Sex and Gender Information Value Date Recorded Sex Assigned at Female 09/10/2022 10:17 AM EDT Legal Sex Female 10:17 AM EDT Gender Identity Female 09/10/2022 10:17 AM EDT Sexual Orientation Straight 09/10/2022 10 :17 AM EDT documented as of this encounter Miscellaneous Notes * Telephone Encounter - Tali Hallman RN - 08/15/2023 3:32 PM EDT called pt to triage, spoke to pt. pt seen ER at [facility] on 08/10 for abdominal pain, and vomiting intermittently. pt states they found she has a fatty liver . pt requesting follow up appt as she is stillhaving symptoms. given appt tomorrow with Dr. Torres at 3:45 for exam, and recheck. pt denies severe pain, constant vomiting, fevers, or other associated symptoms. will task to green team lead to obtain ER records and scan to the record. advised if severe symptoms to return to the ER. pt understands and agrees with plan. insurance verified. Protocol Used: Abdominal Pain - Female (Adult) Protocol-Based Disposition: See in Office or Video Visit within 2 Weeks Positive Triage Question: * Abdominal pain is a chronic symptom (recurrent or ongoing AND lasting > 4 weeks) * All higher-acuity triage questions were negative Care Advice Discussed: * Rest * Diet * Reasons To Call Back - You become worse * Telephone Encounter - Bing Coleman - 08/15/2023 2:54 PM EDT Symptoms: Abdominal Pain - Female - Not , Vomiting Outcome: Schedule an urgent appointment (within 4 hours) or talk to a nurse or provider soon Reason: Getting worse, pt was seen at [facility] on 08/10 for abdominal pain. Was found with a swollen liver. Pt is still symptomatic. The caller accepted this outcome Please contact pt at [phone] documented in this encounter Plan of Treatment Upcoming Encounters Date Type Department Care Team (Late st Contact Info) Description 08/09/2025 1:00 PM EDT Medication Management [facility] [address] [place] [phone] Carey Zambrano PharmD [address] [place] [phone] 08/30/2025 1:45 PM EDT Office Visit [facility] [address] [place] [phone] Lu Oreilly MD [address] [place] [phone] documented as of this encounter Visit Diagnoses Not on filedocumented in this encounter Care Teams Oil Pipe Inspector Helper Relationship Specialty Start Date End Date Lu Oreilly MD [address] [place] [phone] PCP - General Family Medicine 10/23/12 Carey Zambrano PharmD [address] [place] [address] [phone] Pharmacist Pharmacy 06/28/25 documented as of this encounter
--- OUTSIDE RECORDS SUMMARY | 2025-08-03 18:09 | XMS_ITS | Encounter Summary ---
Author Organization [employer] Address [address] [facility] 7 [place] [address] Care Team Providers Care Cold Reduction Roller Name Role Phone Lu Oreilly MD Primary Care Provider [phone] Carey Zambrano PharmD Unavailable [phone] Reason for Visit * Reason Comments Med Refill Encounter Details Date Type Department Care Team (Late st Contact Info) Description 10/09/2024 Refill [facility] [address] [place] [address] Lu Oreilly MD [address] [place], [place] [phone] Influenza-like symptoms Social History Tobacco Use Types [...] 08/09/2025 1:00 PM EDT Medication Management [facility] [address] [place] [phone] Carey Zambrano, PharmD [address] [place] [phone] 08/30/2025 1:45 PM EDT Office Visit [facility] [address] [place] [phone] Lu Oreilly MD [address] [place] [phone] documented as of this encounter Visit Diagnoses Diagnosis Influenza-like symptoms Other general symptoms documented in this encounter Additional Health Concerns Assessment Noted Time PHQ-9 Depression Total Score: 3 11/27/19 24 9:48 AM EST documented as of this encounter Care Teams Cold Reduction Roller Relationship Specialty Start Date End Date Lu Oreilly MD [address] [place] [phone] PCP - General Family Medicine 10/23/12 Carey Zambrano, PharmD [address] [place] [phone] Pharmacist Pharmacy 06/28/25 documented as of this encounter
--- OUTSIDE RECORDS SUMMARY | 2025-08-03 18:09 | XMS_ITS | Encounter Summary ---
Author Organization [employer] Address [address] [facility] 7t [place] [address] Care Team Providers Care Glue Sprayer Name Role Phone Lu Oreilly MD Primary Care Provider [phone] Carey Zambrano PharmD Unavailable [phone] Encounter Details Date Type Department Care Team (Late st Contact Info) Description 08/03/2025 Orders Only GENERIC EXTERNAL DATA DEPARTMENT Provider, Generic External Data Social History Tobacco Use Types Packs/Day Years [...] Description 08/09/2025 1:00 PM EDT Medication Management [facility] [address] [place] [phone] Carey Zambrano, PharmD [address] [place] [phone] 08/30/2025 1:45 PM EDT Office Visit [facility] [address] [place] [phone] Lu Oreilly MD [address] [place] [phone] documented as of this encounter Procedures Procedure Name Priority Date/Time Associated Diagnosis Comments URINALYSIS, COMPLETE, WITH REFLEX TO CULTURE Routine 08/03/2025 3:55 PM EDT CBC WITH AUTO DIFFERENTIAL Routine 08/03/2025 3:04 PM EDT C-REACTIVE PROTEIN Routine 08/03/2025 3: 04 PM EDT MAGNESIUM Routine 08/03/2025 3:04 PM EDT LIPASE Routine 08/03/2025 3:04 PM EDT COMPREHENSIVE METABOLIC PANEL Routine 08/03/2025 3:04 PM EDT documented in this encounter Results * (ABNORMAL) Urinalysis, Complete, with Reflex to Culture (08/03/2025 3:55 PM EDT) Color Urine Yellow [facility] Appearance Urine Clear [facility] PH 5.5 5.0 - 9.0 [facility] Glucose Urine UA >=1000(A) Negative mg/dL [facility] Urine Blood Negative Negative [facility] Specific [place] - Urine >=1.030(H) 1.005 - 1.025 [facility] Urine Protein Trace Neg-Trace mg/dL [facility] Urine Ketones Negative Negative mg/dL [facility] Nitrite Urine Negative Negative [facility] Leukocyte Esterase Urine Negative Negative [facility] RBC Urine 0-2 0 - 2 /HPF [facility] Urine WBC 0-5 0 - 5 /HPF [facility] Urine Squamous Epithelial Cell 6-10 0 - 2 /HPF [facility] Urine Bacteria Trace None Seen [facility] Hyaline Casts, Urine 0-2 0 - 2 /LPF [facility] Urine Yeast Present [facility] 08/03/2025 3:55 PM EDT 08/03/2025 4:03 PM EDT Narrative [facility] - 08/03/2025 4:26 PM EDT Urine, Clean Catch us Generic External Data Provider LAB URINE ORDERAB LES Final Result [facility] [address] [place] [phone] * Lipase (08/03/2025 3:04 PM EDT) Lipase 20 8 - 78 U/L [facility] 08/03/2025 3:04 PM EDT 08/03/2025 3:11 PM EDT Generic External Data Provider LAB BLOOD ORDERAB LES Final Result Performing Organization Address [facility] Co de Phone Number [facility] [address] [place] [phone] * (ABNORMAL) C-reactive Protein (08/03/2025 3:04 PM EDT) Pathologist [facility] C Reactive Protein 5.57(H) < or = 0.50 mg/dL [facility] 08/03/2025 3:04 PM EDT 08/03/2025 3:11 PM EDT Generic External Data Provider LAB BLOOD ORDERAB LES Final Result Performing Organization Address [facility] Co de Phone Number [facility] [address] [place] [phone] * Magnesium (08/03/2025 3:04 PM EDT) [facility] Magnesium 1.6 1.6 - 2.6 mg/dL [facility] 08/03/2025 3:04 PM EDT 08/03/2025 3:11 PM EDT Generic External Data Provider LAB BLOOD ORDERAB LES Final Result Performing Organization Address [facility] de Phone Number [facility] [address] [place] [phone] * (ABNORMAL) Comprehensive Metabolic Panel (08/03/2025 3:04 PM EDT) [facility] Sodium 137 135 - 145 mmol/L [facility] Potassium 3.8 3.3 - 5.1 mmol/L [facility] Chloride 106 96 - 108 mmol/L [facility] Carbon Dioxide 23 22 - 29 mmol/L [facility] Anion Gap 12 12 - 20 [facility] Urea Nitrogen (BUN) 10 9 - 16 mg/dL [facility] Creatinine, Serum 0.62 0.5 - 1.4 mg/dL [facility] Creatinine Clr Calc Pharmacy 142.7 [facility] Comment:Provided height and weight: 154.94 cm,113.852 kg.eGFR (calculated from the MDRD study equation) and eCrCl(calculated from the Cockcroft-Gault equation) are based ondifferent parameters and may not yield comparable results.If eCrCl result is absurd, please check patient'sheight/weight. Estimated Glomerular Filt Rate >60 [facility] Comment:Chronic Kidney Disea se: Estimated GFR < 60 mL/min/[id number] Kidney Disease: Estimated GFR < 15 mL/min/1.73m2 Glucose 327(H) 60 - 115 mg/dL [facility] Calcium 9.1 8.4 - 10.2 mg/dL [facility] Bilirubin, Total 0.4 0.0 - 1.0 mg/dL [facility] Aspartate Amino Transferase 23 5 - 31 U/L [facility] Alanine Aminotransferase 37(H) 0 - 31 U/L [facility] Total Protein 7.5 6.5 - 8.0 g/dL [facility] Albumin Level 4.0 3.5 - 5.0 g/dL [facility] Alkaline Phosphatase 136(H) 39 - 117 U/L [facility] 08/03/2025 3:04 PM EDT 08/03/2025 3:11 PM EDT us Generic External Data Provider LAB BLOOD ORDERAB LES Final Result [facility] [address] [place] [phone] * CBC auto differential (08/03/2025 3:04 PM EDT) White Blood Count 8.7 4.8 - 10.8 X10*3/uL [facility] Red Blood Count 4.87 4.20 - 5.50 X10*6/uL [facility] Hemoglobin 14.5 12.0 - 16.0 g/dl [facility] Hematocrit 42.4 37.0 - 47.0 % [facility] Mean Corpuscular Volume 87.1 80.0 - 98.0 fL [facility] Mean Corpuscular Hemoglobin 29.8 27.0 - 33.0 pg [facility] Mean Corpuscular HGB Conc 34.2 31.0 - 35.0 g/dl [facility] Red Cell Distribution Width 13.3 11.0 - 16.0 % [facility] Platelet Count 231 160 - 400 X10*3/uL [facility] Mean Platelet Volume 10.2 9.4 - 12.3 fL [facility] Neutrophils Percent Auto 62.7 45 - 73 % [facility] Imm Gran Pct Auto 0.2 0.0 - 0.4 % [facility] Lymphocytes Percent Auto 29.9 20 - 40 % [facility] Monocytes Percent Auto 6.1 2 - 11 % [facility] Eosinophils Percent Auto 0.8 0 - 4 % [facility] Basophils Percent Auto 0.3 0 - 2 % [facility] NRBC Pct Auto 0.0 0.0 - 0.2 /100WBC [facility] Neutrophils Absolute Auto 5.5 2.0 - 8.3 x10*3/uL [facility] Imm Gran Abs Auto 0.02 0.00 - 0.03 X10*3/uL [facility] Lymphocytes Absolute Auto 2.6 1.2 - 4.9 X10*3/uL [facility] Monocytes Absolute Auto 0.5 0.1 - 1.2 X10*3/uL [facility] Eosinophils Absolute Auto 0.1 0.0 - 0.4 X10*3/uL [facility] Basophils Absolute Auto 0.0 0.0 - 0.2 X10*3/uL [facility] NRBC Abs Auto 0.000 0.0 - 0.012 X10*3/uL [facility] 08/03/2025 3:04 PM EDT 08/03/2025 3:11 PM EDT us Generic External Data Provider LAB BLOOD ORDERAB LES Final Result [facility] [address] [place] [phone] documented in this encounter Visit Diagnoses Not on filedocumented in this encounter Additional Health Concerns Assessment Noted Time PHQ-9 Depression Total Score: 5 03/08/20 3:08 PM EDT documented as of this encounter Care Teams Glue Sprayer Relationship Specialty Start Date End Date Lu Oreilly MD [address] [place] [phone] PCP - General Family Medicine 10/23/12 Carey Zambrano, KendellD [address] [place] [phone] Pharmacist Pharmacy 06/28/25 documented as of this encounter
--- OUTSIDE RECORDS SUMMARY | 2025-08-03 18:09 | XMS_ITS | Encounter Summary ---
Author Organization [employer] Address [address] [facility] 7 [place] [address] Care Team Providers Care Bookkeeper Name Role Phone Lu Oreilly MD Primary Care Provider [phone] Carey Zambrano PharmD Unavailable [phone] Encounter Details Date Type Department Care Team (Latest Contact Info) Description 06/01/2025 Results Follow-Up [facility] [address] [place] [address] Lu Oreilly MD [address] [place] [address] POCT glucose manually resulted, POCT glycosylated hemoglobin (Hgb A1c) Social History Tobacco Use Types Packs/Day Years [...] Description 08/09/2025 1:00 PM EDT Medication Management [facility] [address] [place] [phone] Carey Zambrano, PharmD [address] [place] [phone] 08/30/2025 1:45 PM EDT Office Visit [facility] [address] [place] [phone] Lu Oreilly MD [address] [place] [phone] documented as of this encounter Visit Diagnoses Not on filedocumented in this encounter Additional Health Concerns Assessment Noted Time PHQ-9 Depression Total Score: 5 03/08/20 25 3:08 PM EDT documented as of this encounter Care Teams Bookkeeper Relationship Specialty Start Date End Date Lu Oreilly MD [address] [place] [phone] PCP - General Family Medicine 10/23/12 Carey Zambrano, KendellD [address] [place] [phone] Pharmacist Pharmacy 06/28/25 documented as of this encounter
[2025-08-03 19:49] VITALS: BP 128/79; PULSE 106; RESP 19; TEMP 37.3; O2SAT 100
[2025-08-03 21:53] LABS: COVID-19 Test Negative (Negative); IDNOW Serial# 55D5AD1C; IDNOW Serial# 58CA691E; Influenza B2 Negative (Negative)
[2025-08-03 22:57] VITALS: BP 103/62; PULSE 92; RESP 14; TEMP 37.1; O2SAT 96
[2025-08-03] MEDS: iohexoL 350 MG/ML 100 ML INFUS..BTL 85 ML IV (23:18)
--- NOTE | 2025-08-03 23:29 | PC.NURSE ---
Delay in fluids infusing. Pt had ac bent- RN informed pt to straighten arm out so fluids can infuse. pt verbalized understanding.
[2025-08-04] VITALS: BP 103/62; PULSE 92; RESP 14; TEMP 37.1; O2SAT 96
[2025-08-04 01:07] VITALS: BP 103/62; PULSE 92; RESP 14; TEMP 37.1; O2SAT 96
[2025-08-04 08:35] LABS: HBS Num1 1.49 mIU/mL (0-7.99); HBc Num1 0.10 S/CO (0.00-0.79); HBsAGNum1 0.32 S/CO (0.00-0.99); Hepatitis A Antibody IgM 0.12 Index (0-0.79); Hepatitis B Surface Antigen Negative (Negative); ~HepC Num1 0.38 S/CO (0.00-0.79); ~Hepatitis A Antibody IgM Nonreactive (Nonreactive); ~Hepatitis B Surface Antibody NONREACTIVE (Nonreactive); ~Hepatitis C Antibody Nonreactive (Nonreactive)
== END 2025-08-04 01:07 | disposition home or self-care (01) ==
PROVIDERS: Physician Assistant; Physician Assistant Medical; Emergency Provider Emergency Medicine; PCP Family Medicine
DX: K52.9 Noninfective gastroenteritis and colitis, unspecified (principal); R11.0 Nausea; Z11.52 Encounter for screening for COVID-19; Z79.899 Other long term (current) drug therapy; Z51.81 Encounter for therapeutic drug level monitoring
CPT/HCPCS: 36415; 74177; 76705; 80053; 80307; 81001; 83690; 83735; 84702; 85025; 86140; 86704; 86706; 86709; 86803; 87340; 87502; 87635; 96361; 96374; 96375; 99284; 99285; J1885; J2405; Q9967

== ENCOUNTER → 2025-08-03 20:39 | Outpatient (BNV) | payer MEDICAID, SELFPAY | PROVIDERS: Emergency Provider Emergency Medicine; PCP Family Medicine; Visit Provider Radiology Diagnostic Radiology | DX: K76.0 Fatty (change of) liver, not elsewhere classified (principal) | CPT/HCPCS: 74177; 76705 ==